=== PATIENT | female | born 1980 | race Caucasian/White ===

== ENCOUNTER 2020-04-11 14:31 | Outpatient (REF) | payer OTHER, SELFPAY ==
[2020-04-12 09:52] LABS: CT PCR NOT DETECTED (Not Detect.); NG PCR NOT DETECTED (Not Detect.)
[2020-04-12 10:13] LABS: BV Int Neg Control Negative (Negative); BV Int Pos Control Positive (Positive)
== END 2020-04-11 14:32 | disposition home or self-care (01) ==
LOC: HO.LNP 14:31
PROVIDERS: PCP Internal Medicine; Visit Provider Obstetrics & Gynecology
DX: N83.202 Unspecified ovarian cyst, left side (principal); B37.3 Candidiasis of vulva and vagina; L98.499 Non-pressure chronic ulcer of skin of other sites with unspecified severity
CPT/HCPCS: 87255; 87480; 87491; 87510; 87591; 87660; 99213

== ENCOUNTER 2020-04-16 14:05 | Outpatient (REF) | payer OTHER, SELFPAY ==
--- NOTE | 2020-04-16 | US_ITS ---
EXAMINATION: US PELVIS, COMPLETE CLINICAL INFORMATION: Ovarian cyst. COMPARISON: CT abdomen 03/04/2020; pelvic ultrasound 06/30/2017. TECHNIQUE: Transabdominal and transvaginal imaging was performed. FINDINGS: LMP: Unknown. Uterus is anteverted , measuring 13 x 4.5 x 6.6 cm. No focal uterine lesion. Endometrial thickness 0.8 cm. Bilateral ovaries could only be visualized transabdominally. The ovaries were not visualized on the transvaginal evaluation. Right ovary measures 4.7 x 3 x 2.6 cm. Volume 19.2 mL. Left ovary measures 4.6 x 2.8 x 2.9 cm. Volume 19.5 mL. No dominant cysts or lesions are evident in the ovaries by transabdominal evaluation. No free fluid in the cul-de-sac. IMPRESSION: 1. No focal lesions or dominant cysts are identified in bilateral ovaries by transabdominal evaluation. The ovaries could not be visualized by transvaginal evaluation. Follow-up ultrasound as clinically warranted. 2. Uterus appears unremarkable. 3. No free fluid in the cul-de-sac.
== END 2020-04-16 14:06 | disposition home or self-care (01) ==
LOC: HO.US 14:05
PROVIDERS: PCP Internal Medicine; Visit Provider Obstetrics & Gynecology
DX: N83.209 Unspecified ovarian cyst, unspecified side (principal)
CPT/HCPCS: 76830; 76856

== ENCOUNTER → 2020-04-30 11:18 | Outpatient (BNVA) | payer OTHER, SELFPAY | PROVIDERS: PCP Internal Medicine; Visit Provider Obstetrics & Gynecology | DX: R10.2 Pelvic and perineal pain (principal) | CPT/HCPCS: 81025; 99213 ==

== ENCOUNTER 2020-04-30 12:42 | Outpatient (REF) | payer OTHER, SELFPAY ==
[2020-04-30 15:23] LABS: CT PCR NOT DETECTED (Not Detect.); NG PCR NOT DETECTED (Not Detect.)
== END 2020-04-30 12:43 | disposition home or self-care (01) ==
LOC: HO.LNP 12:42
PROVIDERS: Visit Provider Obstetrics & Gynecology
DX: R10.2 Pelvic and perineal pain (principal)
CPT/HCPCS: 87491; 87591

== ENCOUNTER 2020-07-08 12:20 | Outpatient (REF) | payer OTHER, SELFPAY ==
[2020-07-08 14:42] LABS: Ferritin 159 ng/mL (10-122)
[2020-07-09 11:27] LABS: Alpha Fetoprotein 4.2 ng/mL
[2020-07-10 12:43] LABS: Anti Nuclear Antibody Screen NEGATIVE (NEGATIVE)
[2020-07-11 10:52] LABS: Smooth Muscle Antibody <20 U (<20)
== END 2020-07-08 12:21 | disposition home or self-care (01) ==
LOC: HO.10HDL 12:20
PROVIDERS: Visit Provider Nurse Practitioner
DX: K76.0 Fatty (change of) liver, not elsewhere classified (principal)
CPT/HCPCS: 36415; 82105; 82728; 86038; 86039; 86255

== ENCOUNTER 2020-07-22 09:33 | Outpatient (REF) | payer OTHER, SELFPAY ==
[2020-07-23 12:03] LABS: BV Int Neg Control Negative (Negative); BV Int Pos Control Positive (Positive)
[2020-07-24 09:02] LABS: C. trachomatis RNA TMA NOT DETECTED (NOT DETECTED); N. gonorrhoeae RNA TMA NOT DETECTED (NOT DETECTED)
== END 2020-07-22 09:34 | disposition home or self-care (01) ==
LOC: HO.LAB 09:33
PROVIDERS: PCP Internal Medicine; Visit Provider Obstetrics & Gynecology
DX: Z01.419 Encounter for gynecological examination (general) (routine) without abnormal findings (principal); R10.2 Pelvic and perineal pain; B37.3 Candidiasis of vulva and vagina
CPT/HCPCS: 36415; 87480; 87491; 87510; 87591; 87660

== ENCOUNTER 2020-07-26 12:35 | Outpatient (REF) | payer OTHER, SELFPAY ==
[2020-07-26 14:11] LABS: Glucose Fasting 101 mg/dL (60-99)
[2020-07-29 08:26] LABS: HIV AB/AG Nonreactive (Nonreactive); HIV Num 1 0.04 S/CO (0.00-0.99)
== END 2020-07-26 12:36 | disposition home or self-care (01) ==
LOC: HO.10HDL 12:35
PROVIDERS: Advanced Practice Midwife; Visit Provider Obstetrics & Gynecology
DX: B37.3 Candidiasis of vulva and vagina (principal); Z13.9 Encounter for screening, unspecified
CPT/HCPCS: 36415; 82947; 87389

== ENCOUNTER 2020-09-05 10:22 | Outpatient (REF) | payer OTHER, SELFPAY ==
[2020-09-05 14:03] LABS: Estimated Average Glucose 108 mg/dL; Hemoglobin A1c % 5.4 %
[2020-09-05 14:21] LABS: Alanine Aminotransferase 74 U/L (0-31); Albumin Level 4.3 g/dL (3.5-5.0); Alkaline Phosphatase 100 U/L (39-117); Anion Gap 14 (12-20); Aspartate Amino Transferase 43 U/L (5-31); Bilirubin Total 0.5 mg/dL (0.0-1.0); Blood Urea Nitrogen 11 mg/dL (9-16); Calcium 8.9 mg/dL (8.4-10.2); Carbon Dioxide 25 mmol/L (22-29); Chloride 105 mmol/L (96-108); Estimated Glomerular Filt Rate > 60; Glucose Fasting 99 mg/dL (60-99); Potassium 4.3 mmol/L (3.3-5.1); Sodium 140 mmol/L (135-145); Total Protein 7.4 g/dL (6.5-8.0)
== END 2020-09-05 10:23 | disposition home or self-care (01) ==
LOC: HO.10HDL 10:22
PROVIDERS: Visit Provider Nurse Practitioner Family
DX: R73.03 Prediabetes (principal)
CPT/HCPCS: 36415; 80053; 83036

== ENCOUNTER → 2020-09-24 13:00 | Outpatient (BNVA) | payer OTHER, SELFPAY | PROVIDERS: PCP Internal Medicine; Visit Provider Nurse Practitioner | DX: R10.33 Periumbilical pain (principal); K90.89 Other intestinal malabsorption; K21.9 Gastro-esophageal reflux disease without esophagitis; K76.0 Fatty (change of) liver, not elsewhere classified; K58.0 Irritable bowel syndrome with diarrhea; Z79.899 Other long term (current) drug therapy | CPT/HCPCS: 99212 ==

== ENCOUNTER 2020-10-18 07:51 | Outpatient (REF) | payer OTHER, SELFPAY ==
--- NOTE | ~2020-10-18 | US_ITS ---
EXAMINATION: US ABDOMEN COMPLETE CLINICAL INFORMATION: Fatty (change of) liver, not elsewhere classified. COMPARISON: CT abdomen and pelvis with contrast dated 03/04/2020. Ultrasound abdomen complete dated 02/13/2020. Ultrasound abdomen limited dated 05/25/2017. MRI abdomen without contrast dated 07/27/2013. TECHNIQUE: Real-time imaging of the abdominal viscera. Technically difficult study secondary to bowel gas and body habitus. FINDINGS: PANCREAS: Mostly obscured by bowel gas. No abnormality detected. ABDOMINAL AORTA: The proximal, mid, and distal segments are normal in caliber. INFERIOR VENA CAVA: Visualized portions are normal. LIVER: There is increased echogenicity diffusely compatible with hepatic steatosis. No focal lesion. No intrahepatic or extrahepatic biliary dilatation. GALLBLADDER: Surgically absent. COMMON BILE DUCT: Normal in caliber measuring 0.8 cm in diameter. RIGHT KIDNEY: Normal. No hydronephrosis. No renal calculi or focal parenchymal lesions. The kidney measures 13.0 cm in maximum dimension. LEFT KIDNEY: Normal. No hydronephrosis. No renal calculi or focal parenchymal lesions. The kidney measures 12.9 cm in maximum dimension. SPLEEN: No focal abnormality. The spleen measures 13.1 cm in maximum dimension. FREE FLUID: None. US/US abdomen complete IMPRESSION: Hepatic steatosis. As seen on prior imaging examinations. No focal liver abnormality.. Status post cholecystectomy.
== END 2020-10-18 07:52 | disposition home or self-care (01) ==
LOC: HO.US 07:51
PROVIDERS: Visit Provider Nurse Practitioner
DX: K76.0 Fatty (change of) liver, not elsewhere classified (principal)
CPT/HCPCS: 76700

== ENCOUNTER 2020-10-18 09:09 | Outpatient (REF) | payer OTHER, SELFPAY ==
[2020-10-18 10:54] LABS: Gamma Glutamyl Transpeptidase 82 U/L (7-33)
[2020-10-18 11:14] LABS: Ferritin 115 ng/mL (10-122)
[2020-10-21 13:43] LABS: Alpha Fetoprotein 4.4 ng/mL
[2020-10-21 14:51] LABS: Mitochondrial Antibodies NEGATIVE (NEGATIVE)
[2020-10-21 15:41] LABS: ANA Pattern 2 Nuclear, Homogeneous; ANA Titer 2 1:40 titer; Anti Nuclear Antibody Screen POSITIVE (NEGATIVE)
[2020-10-24 12:47] LABS: Smooth Muscle Antibody <20 U (<20)
== END 2020-10-18 09:10 | disposition home or self-care (01) ==
LOC: HO.10HDL 09:09
PROVIDERS: Visit Provider Nurse Practitioner
DX: K76.0 Fatty (change of) liver, not elsewhere classified (principal)
CPT/HCPCS: 36415; 82105; 82728; 82977; 86038; 86039; 86255; 86256

== ENCOUNTER → 2020-10-21 09:00 | Outpatient (BNVA) | payer OTHER, SELFPAY | PROVIDERS: PCP Internal Medicine; Visit Provider Obstetrics & Gynecology | DX: B37.3 Candidiasis of vulva and vagina (principal); R32 Unspecified urinary incontinence | CPT/HCPCS: 99212 ==

== ENCOUNTER 2020-10-22 21:41 | Emergency (ER) | payer OTHER, SELFPAY ==
[2020-10-22 22:16] LABS: MANUAL DIFF FLAG NO
[2020-10-22 22:17] LABS: Basophils Percent Auto 0.5 % (0-2); Eosinophils Absolute Auto 0.2 X10*3/uL (0.0-0.4); Eosinophils Percent Auto 2.5 % (0-4); Hematocrit 42.9 % (37-47); Hemoglobin 14.9 g/dl (12.0-16.0); Imm Gran Abs Auto 0.03 X10*3/uL (0.00-0.03); Imm Gran Pct Auto 0.4 % (0.0-0.4); Lymphocytes Absolute Auto 2.9 X10*3/uL (1.2-4.9); Lymphocytes Percent Auto 35.7 % (20-40); Mean Corpuscular HGB Conc 34.7 g/dl (31.0-35.0); Mean Corpuscular Hemoglobin 30.5 pg (27.0-33.0); Mean Corpuscular Volume 87.9 fL (80-98); Mean Platelet Volume 9.6 fL (9.4-12.3); Monocytes Absolute Auto 0.5 X10*3/uL (0.1-1.2); Monocytes Percent Auto 6.5 % (2-11); Neutrophils Absolute Auto 4.4 X10*3/uL (2.0-8.3); Neutrophils Percent Auto 54.4 % (45-73); Platelet Count 323 X10*3/uL (160-400); Red Blood Count 4.88 X10*6/uL (4.20-5.50); White Blood Count 8.1 X10*3/uL (4.8-10.8)
[2020-10-22 22:19] VITALS: BP 145/87; PULSE 86; RESP 18; TEMP 36.8; O2SAT 99; BMI 48.7
[2020-10-22 22:41] LABS: Glucose Urine UA NEG (NEG); Leukocyte Esterase Urine TRACE (NEG); Nitrite Urine NEG (NEG); PH 6.5 (5.0-8.0); Specific Gravity - Urine 1.015 (1.005-1.025); UACC Culture Trigger YES; Urine Blood NEG (NEG); Urine Ketones NEG (NEG); Urine Protein NEG (NEG-TRACE)
[2020-10-22 22:43] LABS: Appearance Urine CLEAR; Color Urine YELLOW
[2020-10-22 22:44] LABS: UPreg QC Valid YES; Urine Pregnancy NEGATIVE (NEGATIVE)
[2020-10-22 22:49] LABS: Alanine Aminotransferase 73 U/L (0-31); Albumin Level 4.2 g/dL (3.5-5.0); Alkaline Phosphatase 95 U/L (39-117); Anion Gap 12 (12-20); Aspartate Amino Transferase 41 U/L (5-31); Bilirubin Total 0.4 mg/dL (0.0-1.0); Blood Urea Nitrogen 8 mg/dL (9-16); Calcium 8.6 mg/dL (8.4-10.2); Carbon Dioxide 26 mmol/L (22-29); Chloride 105 mmol/L (96-108); Creatinine Clr Calc Pharmacy 122.8; Estimated Glomerular Filt Rate > 60; Glucose Random 98 mg/dL (60-115); Lipase 24 U/L (8-78); Sodium 139 mmol/L (135-145)
[2020-10-22 22:49] LABS: Bacteria Urine TRACE /LPF; RBC Urine 0 /HPF (0); Squamous Epithelial Cell Urine TRACE /LPF
--- NOTE | 2020-10-23 01:30 | ED.ABDPAIN ---
HPI - Abdominal Pain General Chief Complaint: Abdominal Pain Stated Complaint: abd pain Time Seen by Provider: 10/23/20 00:27 Source: patient Mode of arrival: ambulatory History of Present Illness HPI narrative: 40-year-old female with history of IBS and fatty liver who presents with suprapubic discomfort without associated fevers, chills, nausea, vomiting but states she has had a few episodes of diarrhea but fib uses to her IBS. Otherwise, she no longer has menstrual bleeding after undergoing a procedure. Related Data Home Medications Medication Instructions Recorded Confirmed dicyclomine 20 mg tablet 20 mg PO TID 04/09/20 05/07/20 ergocalciferol (vitamin D2) 1,250 1,250 mcg PO QWEEK 04/09/20 05/07/20 mcg (50,000 unit) capsule fluticasone propionate 50 1 spray INTRANASAL DAILY 04/11/20 05/07/20 mcg/actuation nasal spray,suspension furosemide 20 mg tablet 20 mg PO DAILY 04/11/20 05/07/20 methocarbamol 750 mg tablet 750 mg PO Q4H 04/11/20 05/07/20 terconazole 0.8 % vaginal cream 1 appful VAGINAL BEDTIME 04/30/20 05/07/20 Previous Rx's Medication Instructions Recorded fluconazole 150 mg tablet 150 mg PO QWEEK 90 Days #13 tab 07/22/20 omeprazole 20 mg capsule,delayed 20 mg PO QAM 30 Days #30 cap 09/24/20 release cephalexin 500 mg PO Q12H 5 Days #10 cap 10/23/20 Allergies Allergy/AdvReac Type Severity Reaction Status Date / Time No Known Allergies Allergy Verified 10/22/20 22:02 [No Known Allergies*] Review of Systems Review of Systems Pertinent positives and negatives as stated in HPI 10 point review of systems otherwise negative. Physical Exam Vital Signs: Vital Signs: Last Vital Signs Temp 98.2 F 10/22/20 22:19 Pulse 86 10/22/20 22:19 Resp 18 10/22/20 22:19 BP 145/87 H 10/22/20 22:19 Pulse Ox 99 10/22/20 22:19 Body Mass Index 48.7 VITAL SIGNS: Reviewed. GENERAL: Well developed, well nourished, in no acute distress. HEAD: Normocephalic/atraumatic OROPHARYNX: no oral lesions noted, posterior pharynx clear NECK: Supple, no adenopathy LUNGS: Normal breath sounds. No adventitious sounds or accessory muscle use. SpO2<99> CARDIOVASCULAR: Regular rate and rhythm without noted murmurs ABDOMEN: Obese, Soft, minimal tenderness on gentle palpation, non-distended with bowel sounds. NEUROLOGIC: Alert and oriented x 4. Course Course Course Narrative: 40-year-old female with history and clinical presentation suggestive of possible UTI and less likely diverticulitis. Review of all investigations is negative for any acute findings other than UTI. All results and findings were discussed with patient at bedside and she was discharged home in stable condition after receiving initial dose of antibiotics. MDM - Abdominal Pain Lab Data Result diagrams: 10/22/20 22:10 10/22/20 22:10 Labs: Lab Results 10/22/20 10/22/20 10/22/20 Range/Units 22:10 22:10 22:10 WBC 8.1 (4.8-10.8) X10*3/uL RBC 4.88 (4.20-5.50) X10*6/uL Hgb 14.9 (12.0-16.0) g/dl Hct 42.9 (37-47) % MCV 87.9 (80-98) fL MCH 30.5 (27.0-33.0) pg MCHC 34.7 (31.0-35.0) g/dl RDW 13.0 (11.0-16.0) % Plt Count 323 (160-400) X10*3/uL MPV 9.6 (9.4-12.3) fL Immature Gran % (Auto) 0.4 (0.0-0.4) % Neut % (Auto) 54.4 (45-73) % Lymph % (Auto) 35.7 (20-40) % [place] % (Auto) 6.5 (2-11) % Eos % (Auto) 2.5 (0-4) % Baso % (Auto) 0.5 (0-2) % Lymph # (Auto) 2.9 (1.2-4.9) X10*3/uL [place] # (Auto) 0.5 (0.1-1.2) X10*3/uL Eos # (Auto) 0.2 (0.0-0.4) X10*3/uL Baso # (Auto) 0.0 (0.0-0.2) X10*3/uL Abs Immat Gran (auto) 0.03 (0.00-0.03) X10*3/uL Absolute Neuts (auto) 4.4 (2.0-8.3) X10*3/uL Absolute Nucleated RBC 0.000 (0.0-0.012) X10*3/uL Nucleated RBC % (auto) 0.0 (0.0-0.2) /100WBC Hold Blue Top SEE NOTE Sodium 139 (135-145) mmol/L Potassium 4.0 (3.3-5.1) mmol/L Chloride 105 (96-108) mmol/L Carbon Dioxide 26 (22-29) mmol/L Anion Gap 12 (12-20) BUN 8 L (9-16) mg/dL Creatinine 0.74 (0.5-1.4) mg/dL Estim Creat Clear Calc 122.8 Estimated GFR > 60 Random Glucose 98 (60-115) mg/dL Calcium 8.6 (8.4-10.2) mg/dL Total Bilirubin 0.4 (0.0-1.0) mg/dL AST 41 H (5-31) U/L ALT 73 H (0-31) U/L Alkaline Phosphatase 95 (39-117) U/L Total Protein 7.0 (6.5-8.0) g/dL Albumin 4.2 (3.5-5.0) g/dL Lipase 24 (8-78) U/L Urine Color Urine Appearance Urine pH (5.0-8.0) Ur Specific [place] (1.005-1.025) Urine Protein (NEG-TRACE) MG/DL Urine Glucose (UA) (NEG) MG/DL Urine Ketones (NEG) MG/DL Urine Blood (NEG) Urine Nitrite (NEG) Ur Leukocyte Esterase (NEG) Urine RBC (0) /HPF Urine WBC (0-4) /HPF Ur Squamous Epith Cells /LPF Urine Bacteria /LPF Urine Test (NEGATIVE) 10/22/20 10/22/20 Range/Units 22:34 22:34 WBC (4.8-10.8) X10*3/uL RBC (4.20-5.50) X10*6/uL Hgb (12.0-16.0) g/dl Hct (37-47) % MCV (80-98) fL MCH (27.0-33.0) pg MCHC (31.0-35.0) g/dl RDW (11.0-16.0) % Plt Count (160-400) X10*3/uL MPV (9.4-12.3) fL Immature Gran % (Auto) (0.0-0.4) % Neut % (Auto) (45-73) % Lymph % (Auto) (20-40) % [place] % (Auto) (2-11) % Eos % (Auto) (0-4) % Baso % (Auto) (0-2) % Lymph # (Auto) (1.2-4.9) X10*3/uL [place] # (Auto) (0.1-1.2) X10*3/uL Eos # (Auto) (0.0-0.4) X10*3/uL Baso # (Auto) (0.0-0.2) X10*3/uL Abs Immat Gran (auto) (0.00-0.03) X10*3/uL Absolute Neuts (auto) (2.0-8.3) X10*3/uL Absolute Nucleated RBC (0.0-0.012) X10*3/uL Nucleated RBC % (auto) (0.0-0.2) /100WBC Hold Blue Top Sodium (135-145) mmol/L Potassium (3.3-5.1) mmol/L Chloride (96-108) mmol/L Carbon Dioxide (22-29) mmol/L Anion Gap (12-20) BUN (9-16) mg/dL Creatinine (0.5-1.4) mg/dL Estim Creat Clear Calc Estimated GFR Random Glucose (60-115) mg/dL Calcium (8.4-10.2) mg/dL Total Bilirubin (0.0-1.0) mg/dL AST (5-31) U/L ALT (0-31) U/L Alkaline Phosphatase (39-117) U/L Total Protein (6.5-8.0) g/dL Albumin (3.5-5.0) g/dL Lipase (8-78) U/L Urine Color YELLOW Urine Appearance CLEAR Urine pH 6.5 (5.0-8.0) Ur Specific [place] 1.015 (1.005-1.025) Urine Protein NEG (NEG-TRACE) MG/DL Urine Glucose (UA) NEG (NEG) MG/DL Urine Ketones NEG (NEG) MG/DL Urine Blood NEG (NEG) Urine Nitrite NEG (NEG) Ur Leukocyte Esterase TRACE H (NEG) Urine RBC 0 (0) /HPF Urine WBC 1-4 (0-4) /HPF Ur Squamous Epith Cells TRACE /LPF Urine Bacteria TRACE /LPF Urine Test NEGATIVE (NEGATIVE) Discharge Plan Discharge Clinical Impression: UTI (urinary tract infection) Patient Disposition: Home, Self-Care Instructions: Urinary Tract Infection in Women (ED) Additional Instructions: Increase fluid hydration especially with water. Follow-up with your primary care provider in the next 2-3 days for re-evaluation. Do not hesitate to return to the emergency department should you develop any acute worsening of your symptoms. Prescriptions: New cephalexin 500 mg capsule 500 mg PO Q12H 5 Days Qty: 10 RF: 0 No Action methocarbamol 750 mg tablet 750 mg PO Q4H RF: 0 fluticasone propionate 50 mcg/actuation spray,suspension 1 spray intranasal DAILY RF: 0 furosemide 20 mg tablet 20 mg PO DAILY RF: 0 fluconazole [Diflucan] 150 mg tablet 150 mg PO QWEEK 90 Days Qty: 13 RF: 0 ergocalciferol (vitamin D2) 1,250 mcg (50,000 unit) capsule 1,250 mcg PO QWEEK RF: 0 dicyclomine 20 mg tablet 20 mg PO TID RF: 0 omeprazole 20 mg capsule,delayed release(DR/EC) 20 mg PO QAM 30 Days Qty: 30 RF: 0 terconazole 0.8 % cream 1 appful vaginal BEDTIME RF: 0 Referrals: Jayne Watkins MD [Primary Care Provider] - 2 days (Re-evaluation after treated for UTI) [facility] Past Medical History Source: nursing notes reviewed Medical History ADHD Back pain History of hysteroscopy Hypoglycemia OLYA (obstructive sleep apnea) Pelvic pain Polyarthralgia Pre-diabetes Surgical History H/O section H/O laparoscopy History of bilateral tubal ligation Hx laparoscopic cholecystectomy Hx of tonsillectomy Family History Family History Mother Diabetes HTN (hypertension) Maternal Grandmother Cancer Sister Diabetes Social History Social History Alcohol intake: never Smoking Status: Never smoker Advance Directives: No Sexual orientation: Straight/Heterosexual Gender identity: female
[2020-10-23] MEDS: cephALEXin 500 MG CAPSULE PO (02:02)
== END 2020-10-23 02:11 | disposition home or self-care (01) ==
PROVIDERS: Emergency Provider Student in an Organized Health Care Education/Training Program; PCP Internal Medicine
DX: N39.0 Urinary tract infection, site not specified (principal); R50.9 Fever, unspecified; K76.0 Fatty (change of) liver, not elsewhere classified
CPT/HCPCS: 36415; 80053; 81001; 81003; 81025; 83690; 85025; 87086; 87147; 99283

== ENCOUNTER 2020-11-07 12:52 | Outpatient (REF) | payer OTHER, SELFPAY ==
--- NOTE | ~2020-11-07 | XR_ITS ---
EXAMINATION: XR LUMBOSACRAL SPINE CLINICAL INFORMATION: Pain COMPARISON: Previous x-ray December 2015 TECHNIQUE: Three views of the lumbosacral spine. FINDINGS: Bone alignment is normal. No acute fracture or dislocation is seen. There is degenerative disc disease at L4-L5 and L5-S1. There is mild lower lumbar spine facet arthritis. There is evidence of old trauma to the left iliac crest that appears unchanged. XR/XR lumbar spine 2-3V IMPRESSION: Degenerative changes of the lower lumbar spine.
[2020-11-07 14:30] LABS: MANUAL DIFF FLAG NO
[2020-11-07 14:40] LABS: Basophils Percent Auto 0.5 % (0-2); Eosinophils Absolute Auto 0.2 X10*3/uL (0.0-0.4); Eosinophils Percent Auto 2.1 % (0-4); Hematocrit 44.7 % (37-47); Hemoglobin 15.3 g/dl (12.0-16.0); Imm Gran Abs Auto 0.03 X10*3/uL (0.00-0.03); Imm Gran Pct Auto 0.4 % (0.0-0.4); Lymphocytes Percent Auto 24.2 % (20-40); Mean Corpuscular HGB Conc 34.2 g/dl (31.0-35.0); Mean Corpuscular Hemoglobin 30.2 pg (27.0-33.0); Mean Corpuscular Volume 88.2 fL (80-98); Mean Platelet Volume 9.6 fL (9.4-12.3); Monocytes Absolute Auto 0.5 X10*3/uL (0.1-1.2); Monocytes Percent Auto 5.6 % (2-11); Neutrophils Absolute Auto 5.7 X10*3/uL (2.0-8.3); Neutrophils Percent Auto 67.2 % (45-73); Platelet Count 347 X10*3/uL (160-400); Red Blood Count 5.07 X10*6/uL (4.20-5.50); Red Cell Distribution Width 13.2 % (11.0-16.0); White Blood Count 8.4 X10*3/uL (4.8-10.8)
[2020-11-07 15:08] LABS: Glucose Urine UA NEG (NEG); Leukocyte Esterase Urine TRACE (NEG); Nitrite Urine NEG (NEG); PH 5.5 (5.0-8.0); Specific Gravity - Urine >= 1.030 (1.005-1.025); Urine Blood NEG (NEG); Urine Ketones NEG (NEG); Urine Protein NEG (NEG-TRACE)
[2020-11-07 15:09] LABS: Appearance Urine HAZY; Color Urine YELLOW
[2020-11-07 15:16] LABS: Bacteria Urine 1+ /LPF; Mucus Urine TRACE /LPF; RBC Urine 0-2 /HPF (0); Squamous Epithelial Cell Urine 4+ /LPF
[2020-11-07 15:23] LABS: Alanine Aminotransferase 86 U/L (0-31); Albumin Level 4.4 g/dL (3.5-5.0); Alkaline Phosphatase 98 U/L (39-117); Anion Gap 14 (12-20); Aspartate Amino Transferase 59 U/L (5-31); Bilirubin Total 0.5 mg/dL (0.0-1.0); Blood Urea Nitrogen 8 mg/dL (9-16); C Reactive Protein 1.09 mg/dL (< or = 0.50); Carbon Dioxide 22 mmol/L (22-29); Chloride 106 mmol/L (96-108); Estimated Glomerular Filt Rate > 60; Glucose Random 131 mg/dL (60-115); Rheumatoid Factor < 15.0 IU/mL (<15.0); Sodium 138 mmol/L (135-145); Total Protein 7.3 g/dL (6.5-8.0)
[2020-11-07 15:45] LABS: Thyroid Stimulating Hormone 1.19 uIU/mL (0.32-4.0)
[2020-11-07 16:23] LABS: Erythrocyte Sedimentation Rate 8 MM/HR (0-20)
[2020-11-08 10:17] LABS: Thyroid Peroxidase Antibodies 1 IU/mL (<9)
[2020-11-08 11:07] LABS: Anti DNA DS Antibody 1 IU/mL; Antibody to SS-A Antigen <1.0 NEG AI (<1.0 NEG); Antibody to SS-B Antigen <1.0 NEG AI (<1.0 NEG); SM/Ribonucleoprotein Ab <1.0 NEG AI (<1.0 NEG); Smith Protein <1.0 NEG AI (<1.0 NEG)
[2020-11-08 11:57] LABS: Cyclic Citrullinated Peptide <16 UNITS
[2020-11-08 18:22] LABS: Thyroglobulin Antibodies <1 IU/mL (< or = 1)
[2020-11-11 11:42] LABS: Complement C3 184 mg/dL (83-193)
== END 2020-11-07 12:53 | disposition home or self-care (01) ==
LOC: HO.LAB 12:52
PROVIDERS: PCP Internal Medicine; Visit Provider Student in an Organized Health Care Education/Training Program
DX: R76.8 Other specified abnormal immunological findings in serum (principal); M25.50 Pain in unspecified joint; Z79.899 Other long term (current) drug therapy
CPT/HCPCS: 36415; 72100; 80053; 81001; 84443; 85025; 85652; 86140; 86160; 86200; 86225; 86235; 86376; 86431; 86800; 99202

== ENCOUNTER → 2020-11-19 16:17 | Outpatient (BNVA) | payer OTHER, SELFPAY | PROVIDERS: Visit Provider Obstetrics & Gynecology ==

== ENCOUNTER 2020-11-21 13:36 | Outpatient (REF) | payer OTHER, SELFPAY ==
--- NOTE | ~2020-11-21 | XR_ITS ---
EXAMINATION: XR CHEST CLINICAL INFORMATION: Localized swelling and mass and lump on the trunk. COMPARISON: None TECHNIQUE: 2 views of the chest were obtained. FINDINGS: No significant abnormality is noted involving the heart, lungs, mediastinum, bony thorax or soft tissues. XR/XR chest 2V IMPRESSION: Unremarkable chest examination.
== END 2020-11-21 13:37 | disposition home or self-care (01) ==
LOC: HO.HMGCX 13:36
PROVIDERS: PCP Internal Medicine; Visit Provider Hospitalist
DX: R22.2 Localized swelling, mass and lump, trunk (principal)
CPT/HCPCS: 71046

== ENCOUNTER 2020-11-22 14:25 | Outpatient (REF) | payer OTHER, SELFPAY ==
--- NOTE | ~2020-11-22 | US_ITS ---
EXAMINATION: US SOFT TISSUE OF THE NECK CLINICAL INFORMATION: Supraclavicular masses. COMPARISON: None TECHNIQUE: Linear transducer grayscale and color Doppler examination of the area between the neck and shoulder bilaterally. FINDINGS: No supraclavicular soft tissue solid or cystic mass is seen. There are no enlarged lymph nodes seen in the supraclavicular region. There is a normal-appearing left level 3 lymph node. This measures 0.7 x 1.6 x 0.7 cm in dimension and is normal in size. This demonstrates normal ultrasound morphology and flow. US/US soft tiss head and/or neck IMPRESSION: No supraclavicular mass or adenopathy seen.
== END 2020-11-22 14:26 | disposition home or self-care (01) ==
LOC: HO.HMGCX 14:25
PROVIDERS: Visit Provider Hospitalist
DX: R22.2 Localized swelling, mass and lump, trunk (principal)
CPT/HCPCS: 76536

== ENCOUNTER → 2020-12-03 09:22 | Outpatient (BNVA) | payer OTHER, SELFPAY | PROVIDERS: Visit Provider Student in an Organized Health Care Education/Training Program | DX: M25.50 Pain in unspecified joint (principal); R76.8 Other specified abnormal immunological findings in serum | CPT/HCPCS: 99212 ==

== ENCOUNTER → 2021-01-03 14:21 | Outpatient (BNVA) | payer OTHER, SELFPAY | PROVIDERS: PCP Internal Medicine; Visit Provider Urology | DX: N32.81 Overactive bladder (principal); R32 Unspecified urinary incontinence; R35.0 Frequency of micturition | CPT/HCPCS: 99202 ==

== ENCOUNTER 2021-01-31 07:45 | Outpatient (REF) | payer OTHER, SELFPAY ==
[2021-02-07 12:36] LABS: Vitamin D 25-OH, D2 30 ng/mL; Vitamin D 25-OH, D3 10 ng/mL; Vitamin D 25-OH, Total 40 ng/mL (30-100)
== END 2021-01-31 07:46 | disposition home or self-care (01) ==
LOC: HO.LAB 07:45
PROVIDERS: PCP Internal Medicine; Visit Provider Internal Medicine
DX: E55.9 Vitamin D deficiency, unspecified (principal); R23.8 Other skin changes
CPT/HCPCS: 36415; 82306; 82533

== ENCOUNTER 2021-02-03 14:17 | Outpatient (REF) | payer OTHER, SELFPAY ==
[2021-02-06 10:06] LABS: Total Volume, 24 Hr Urine 1850
[2021-02-07 21:36] LABS: Cortisol Free, 24 Hr Urine 35.6 mcg/24 h (4.0-50.0)
== END 2021-02-03 14:18 | disposition home or self-care (01) ==
LOC: HO.LNP 14:17
PROVIDERS: Visit Provider Internal Medicine
DX: R23.8 Other skin changes (principal)
CPT/HCPCS: 82530

== ENCOUNTER 2021-02-08 21:25 | Emergency (ER) | payer OTHER, SELFPAY ==
--- NOTE | ~2021-02-08 | XR_ITS ---
EXAMINATION: XR WRIST, LEFT CLINICAL INFORMATION: Wrist injury COMPARISON: None TECHNIQUE: PA, lateral, oblique, and scaphoid views of the left wrist. FINDINGS: The bones and soft tissues are normal. No fracture. Alignment is anatomic with normal joint spaces. No erosions or abnormal soft tissue calcifications. XR/XR wrist LT min 3V IMPRESSION: Normal left wrist.
[2021-02-08 21:27] VITALS: BP 149/90; PULSE 93; RESP 18; TEMP 36.8; O2SAT 96; BMI 49.6
--- NOTE | 2021-02-08 22:02 | ED.EXTPRO ---
HPI - Extremity Problem General Chief complaint: Extremity Injury, Upper Stated complaint: wrist injury Time Seen by Provider: 02/08/21 21:50 Source: patient Mode of arrival: ambulatory Limitations: no limitations History of Present Illness HPI Narrative: 40-year-old female presents with left wrist pain. Stated that yesterday while she was at the beach she tried to get up out of the beach chair, applied pressure to the left wrist and felt a crack and multiple pops. She does have a history of carpal tunnel, and has been using a compression wrap to alleviate her pain. She did not report any other symptoms, has full range of motion to the extremity, and does not report any decrease in sensation. MD Complaint: extremity pain Onset (ago): day(s) (1) Pain Consistency: constant Location: left Severity scale (1-10): 7 Quality: aching Radiation: none Relieving factors: nothing Exacerbating factors: range of motion and palpation Associated symptoms: denies other symptoms Related Data Home Medications Medication Instructions Recorded Confirmed fluticasone propionate 50 1 spray INTRANASAL DAILY 04/11/20 01/29/21 mcg/actuation nasal spray,suspension methocarbamol 750 mg tablet 750 mg PO Q4H 04/11/20 01/29/21 sennosides 8.6 mg tablet 17.2 mg PO BEDTIME 01/03/21 01/29/21 Previous Rx's Medication Instructions Recorded omeprazole 20 mg capsule,delayed 20 mg PO QAM 30 Days #30 cap 09/24/20 release sennosides 8.6 mg capsule (senna) 17.2 mg PO BEDTIME 30 Days #60 cap 10/30/20 ergocalciferol (vitamin D2) 1,250 1,250 mcg PO QWEEK 30 Days #5 cap 10/31/20 mcg (50,000 unit) capsule furosemide 20 mg tablet 20 mg PO DAILY 90 Days #90 tab 12/08/20 ibuprofen 800 mg tablet 800 mg PO Q8H PRN 30 Days #90 tab 12/08/20 dexamethasone 1 mg tablet 1 mg PO DAILY 1 Days #1 tab 01/29/21 Allergies Allergy/AdvReac Type Severity Reaction Status Date / Time No Known Allergies Allergy Verified 02/08/21 21:26 [No Known Allergies*] Review of Systems Review of Systems: Constitutional: No Fever, No Chills ENT/Mouth: No Ear Pain, No Hoarseness, No sore throat Eyes: No Eye Pain, No Swelling, No Redness, No Foreign Body Cardiovascular: No Chest Pain, No SOB Respiratory: No Cough, No Dyspnea Gastrointestinal: No Nausea, No Vomiting, No Diarrhea, No abdominal Pain Genitourinary: No Dysuria, No Hematuria Musculoskeletal: positive left wrist pain, No Myalgias, No Joint Swelling Skin: No Skin lacerations, No rash Neuro: No Weakness, No Numbness, No Paresthesias, No Loss of Consciousness, No Dizziness, No Headache Psych: No Anxiety/Panic, No Depression Heme/Lymph: no easy bruising, no Lymphadenopathy Endocrine: No Polyuria, No Polydipsia Yes all other systems are reviewed and are negative REPLACED BY [facility] Past Medical History Attestation statement: The following information was validated with the patient. Source: old records reviewed Medical History (Updated 02/08/21 @ 23:24 by Maia Berry NP) ADHD RADHA positive Back pain Benign tumor Bulging of cervical intervertebral disc Carpal tunnel syndrome Depression with anxiety Easy bruising Hypoglycemia Lumbar pain Mild asthma OLYA (obstructive sleep apnea) Pelvic pain Polyarthralgia Pre-diabetes Surgical History H/O section H/O laparoscopy History of bilateral tubal ligation History of hysteroscopy History of mandibular surgery Hx laparoscopic cholecystectomy Hx of tonsillectomy Family History Family History Mother Diabetes HTN (hypertension) Maternal Grandmother Cancer Sister Diabetes Social History Social History Housing: Apartment Alcohol intake: never Patient Tobacco Use Status: Never used Tobacco e-Cigarette/Vaping Use: Never Used Second Hand Smoke Exposure: No Advance Directives: No Advance Directives Information Provided: Yes Patient : No service: No Current occupational status: unemployed Sexual orientation: Straight/Heterosexual Gender identity: female Physical Exam Vital Signs: Vital Signs: Last Vital Signs Temp 98.3 F 02/08/21 21:27 Pulse 93 02/08/21 21:27 Resp 18 02/08/21 21:27 BP 149/90 H 02/08/21 21:27 Pulse Ox 96 02/08/21 21:27 Body Mass Index 49.6 Appearance: Alert. Oriented X3. No acute distress. Eyes: Pupils equal, round and reactive to light. ENT: Pharynx normal. Neck: Normal inspection. Neck supple. CVS: Normal heart rate and rhythm. Pulses normal. Respiratory: No respiratory distress. Breath sounds normal. Abdomen: Soft and nontender. Skin: Skin warm and dry. Normal skin color. Normal skin turgor. Extremities: Full range of motion to bilateral upper extremities, equal pulses and brisk capillary refill, no snuffbox tenderness, strength 5/5 to all digits, no indication of tendon deficit, negative Phalen and Tinel sign. Neuro: No motor deficit. No sensory deficit. Course Course Course Narrative: 40-year-old female presents with left wrist pain after feeling a pop and snaps when applying pressure to the wrist while trying to get up out of a chair. Patient does have full range of motion, no indication of swelling bruising or abrasions. Has brisk capillary refill, is neurovascularly intact, no indication of tendon injury. Will order x-rays. X-rays are negative for acute findings requiring emergent intervention. Will give a wrist brace for suspected sprain-strain. Will have patient follow up with Orthopedics as she does have a known history of carpal tunnel. Patient verbalized understanding of and agrees to plan of care discharge home. MDM - Extremity (Nontraumatic) MDM Narrative Medical decision making narrative: Dislocation, fracture, strain, tendinitis Medical Records Attestation: I reviewed the patient's medical records. Imaging Data Wrist x-ray: Attestation: I personally reviewed and interpreted this imaging study as follows: Radiologist's impression: EXAMINATION: XR WRIST, LEFT CLINICAL INFORMATION: Wrist injury COMPARISON: None? TECHNIQUE: PA, lateral, oblique, and scaphoid views of the left wrist. FINDINGS: The bones and soft tissues are normal. No fracture. Alignment is anatomic with normal joint spaces. No erosions or abnormal soft tissue calcifications.? XR/XR wrist LT min 3V IMPRESSION: Normal left wrist. Discharge Plan Discharge Clinical Impression: Sprain and strain of wrist Patient Disposition: Home, Self-Care Instructions: Wrist Sprain (ED) Additional Instructions: You were evaluated for injury sustained to the left wrist. X-rays are negative for fracture or dislocation. This could possibly be a wrist strain or sprain. Please use wrist splint as needed for comfort. Consider following up with Orthopedics for chronic carpal tunnel. Thank you for choosing this emergency department for evaluation. Please follow-up with primary care physician as needed. Return to the emergency department for any new, concerning, or worsening symptoms. Prescriptions: No Action senna 8.6 mg capsule 17.2 mg PO BEDTIME 30 Days Qty: 60 RF: 6 ibuprofen 800 mg tablet 800 mg PO Q8H PRN (Reason: pain) 30 Days Qty: 90 RF: 1 furosemide 20 mg tablet 20 mg PO DAILY 90 Days Qty: 90 RF: 1 dexamethasone 1 mg tablet 1 mg PO DAILY 1 Days Qty: 1 RF: 0 ergocalciferol (vitamin D2) 1,250 mcg (50,000 unit) capsule 1,250 mcg PO QWEEK 30 Days Qty: 5 RF: 3 methocarbamol 750 mg tablet 750 mg PO Q4H RF: 0 fluticasone propionate 50 mcg/actuation spray,suspension 1 spray intranasal DAILY RF: 0 omeprazole 20 mg capsule,delayed release(DR/EC) 20 mg PO QAM 30 Days Qty: 30 RF: 0 sennosides 8.6 mg tablet 17.2 mg PO BEDTIME RF: 0 Referrals: Amanda Low PA-C [Physician Psychological Science Professor] - 2 days (Carpal tunnel) Interventions: ED Discharge Assessment Last Done: 02/09/21 00:03 Discharge Date/Time: 02/09/21 00:07
== END 2021-02-09 00:07 | disposition home or self-care (01) ==
PROVIDERS: Emergency Provider Emergency Medicine; PCP Internal Medicine
DX: S63.502A Unspecified sprain of left wrist, initial encounter (principal); S66.912A Strain of unspecified muscle, fascia and tendon at wrist and hand level, left hand, initial encounter; X50.1XXA Overexertion from prolonged static or awkward postures, initial encounter; Y93.89 Activity, other specified; Y92.832 Beach as the place of occurrence of the external cause; Y99.9 Unspecified external cause status
CPT/HCPCS: 73110; 99283; 99284

== ENCOUNTER 2021-03-05 12:57 | Outpatient (REF) | payer OTHER, SELFPAY ==
--- NOTE | ~2021-03-05 | XR_ITS ---
EXAMINATION: XR HIP, LEFT XR KNEES, BILATERAL CLINICAL INFORMATION: Bilateral leg pain and left hip pain. COMPARISON: Left hip and bilateral knees 09/22/2017 TECHNIQUE: 3 views left hip, 2 views each knee FINDINGS: No significant bone, joint or soft tissue abnormality is seen involving the left hip or either knee. No significant degenerative changes are present and no fractures are seen. Irregularity of the left iliac crest is again noted and stable possibly secondary to prior trauma or bone harvest. XR/XR knee LT 2V IMPRESSION: Normal left hip and bilateral knees, unchanged.
--- NOTE | ~2021-03-05 | XR_ITS ---
EXAMINATION: XR HIP, LEFT XR KNEES, BILATERAL CLINICAL INFORMATION: Bilateral leg pain and left hip pain. COMPARISON: Left hip and bilateral knees 09/22/2017 TECHNIQUE: 3 views left hip, 2 views each knee FINDINGS: No significant bone, joint or soft tissue abnormality is seen involving the left hip or either knee. No significant degenerative changes are present and no fractures are seen. Irregularity of the left iliac crest is again noted and stable possibly secondary to prior trauma or bone harvest. XR/XR knee RT 2V IMPRESSION: Normal left hip and bilateral knees, unchanged.
--- NOTE | ~2021-03-05 | XR_ITS ---
EXAMINATION: XR HIP, LEFT XR KNEES, BILATERAL CLINICAL INFORMATION: Bilateral leg pain and left hip pain. COMPARISON: Left hip and bilateral knees 09/22/2017 TECHNIQUE: 3 views left hip, 2 views each knee FINDINGS: No significant bone, joint or soft tissue abnormality is seen involving the left hip or either knee. No significant degenerative changes are present and no fractures are seen. Irregularity of the left iliac crest is again noted and stable possibly secondary to prior trauma or bone harvest. XR/XR hip LT min 2V IMPRESSION: Normal left hip and bilateral knees, unchanged.
== END 2021-03-05 12:58 | disposition home or self-care (01) ==
LOC: HO.XRAY 12:57
PROVIDERS: PCP Internal Medicine; Visit Provider Internal Medicine
DX: M25.552 Pain in left hip (principal); M25.562 Pain in left knee; M25.561 Pain in right knee
CPT/HCPCS: 73502; 73560

== ENCOUNTER → 2021-03-25 14:32 | Outpatient (BNVA) | payer OTHER, SELFPAY | PROVIDERS: PCP Internal Medicine; Visit Provider Nurse Practitioner ==

== ENCOUNTER 2021-05-23 09:07 | Outpatient (REF) | payer OTHER, SELFPAY ==
[2021-05-23 10:09] LABS: MANUAL DIFF FLAG NO
[2021-05-23 10:21] LABS: Basophils Absolute Auto 0.1 X10*3/uL (0.0-0.2); Basophils Percent Auto 0.7 % (0-2); Eosinophils Absolute Auto 0.4 X10*3/uL (0.0-0.4); Eosinophils Percent Auto 4.1 % (0-4); Hematocrit 42.9 % (37.0-47.0); Hemoglobin 14.9 g/dl (12.0-16.0); Imm Gran Abs Auto 0.03 X10*3/uL (0.00-0.03); Imm Gran Pct Auto 0.3 % (0.0-0.4); Lymphocytes Absolute Auto 2.8 X10*3/uL (1.2-4.9); Lymphocytes Percent Auto 32.3 % (20-40); Mean Corpuscular HGB Conc 34.7 g/dl (31.0-35.0); Mean Corpuscular Hemoglobin 30.4 pg (27.0-33.0); Mean Corpuscular Volume 87.6 fL (80.0-98.0); Mean Platelet Volume 10.3 fL (9.4-12.3); Monocytes Absolute Auto 0.6 X10*3/uL (0.1-1.2); Monocytes Percent Auto 6.9 % (2-11); Neutrophils Absolute Auto 4.9 x10*3/uL (2.0-8.3); Neutrophils Percent Auto 55.7 % (45-73); Platelet Count 335 X10*3/uL (160-400); Red Cell Distribution Width 13.3 % (11.0-16.0); White Blood Count 8.8 X10*3/uL (4.8-10.8)
[2021-05-23 10:45] LABS: Alanine Aminotransferase 71 U/L (0-31); Albumin Level 4.2 g/dL (3.5-5.0); Alkaline Phosphatase 109 U/L (39-117); Anion Gap 11 (12-20); Aspartate Amino Transferase 42 U/L (5-31); Bilirubin Total 0.4 mg/dL (0.0-1.0); Blood Urea Nitrogen 8 mg/dL (9-16); Calcium 8.7 mg/dL (8.4-10.2); Carbon Dioxide 26 mmol/L (22-29); Chloride 103 mmol/L (96-108); Cholesterol 181 mg/dL; Estimated Glomerular Filt Rate > 60; Glucose Fasting 105 mg/dL (60-99); HDL Cholesterol 34 mg/dL; LDL Cholesterol Calculated 104 mg/dl; Potassium 3.8 mmol/L (3.3-5.1); Sodium 136 mmol/L (135-145); Triglycerides 219 mg/dL
[2021-05-23 11:01] LABS: Gamma Glutamyl Transpeptidase 101 U/L (7-33)
[2021-05-23 11:07] LABS: Ferritin 151 ng/mL (10-122)
[2021-05-23 11:19] LABS: Folate 9.9 ng/mL (> or = 4.0); Vitamin B12 566 pg/mL (200-900)
[2021-05-25 15:06] LABS: Anti Nuclear Antibody Screen NEGATIVE (NEGATIVE)
[2021-05-26 21:47] LABS: Smooth Muscle Antibody <20 U (<20)
[2021-05-27 13:12] LABS: Mitochondrial Antibodies NEGATIVE (NEGATIVE)
[2021-05-30 15:20] LABS: Vitamin D 25-OH, D2 17 ng/mL; Vitamin D 25-OH, D3 14 ng/mL; Vitamin D 25-OH, Total 31 ng/mL (30-100)
== END 2021-05-23 09:08 | disposition home or self-care (01) ==
LOC: HO.10HDL 09:07
PROVIDERS: Internal Medicine; Visit Provider Nurse Practitioner
DX: K76.0 Fatty (change of) liver, not elsewhere classified (principal); R74.01 Elevation of levels of liver transaminase levels; E66.01 Morbid (severe) obesity due to excess calories; D64.9 Anemia, unspecified; E55.9 Vitamin D deficiency, unspecified; E78.5 Hyperlipidemia, unspecified
CPT/HCPCS: 36415; 80053; 80061; 82105; 82306; 82607; 82728; 82746; 82977; 84443; 85025; 86038; 86039; 86255; 86256

== ENCOUNTER 2021-07-14 11:52 | Outpatient (REF) | payer OTHER, SELFPAY ==
[2021-07-14 14:43] LABS: Appearance Urine CLEAR; Color Urine YELLOW; Glucose Urine UA NEG (NEG); Leukocyte Esterase Urine NEG (NEG); Nitrite Urine NEG (NEG); Urine Blood NEG (NEG); Urine Ketones NEG (NEG); Urine Protein NEG (NEG-TRACE)
== END 2021-07-14 11:53 | disposition home or self-care (01) ==
LOC: HO.LAB 11:52
PROVIDERS: PCP Internal Medicine; Referring Provider Internal Medicine; Visit Provider Nurse Practitioner
DX: R35.0 Frequency of micturition (principal); K90.89 Other intestinal malabsorption; K21.9 Gastro-esophageal reflux disease without esophagitis; K76.0 Fatty (change of) liver, not elsewhere classified; E66.01 Morbid (severe) obesity due to excess calories
CPT/HCPCS: 81003; 99212

== ENCOUNTER 2021-07-24 08:57 | Outpatient (REF) | payer OTHER, SELFPAY ==
[2021-07-29 20:01] LABS: HPV mRNA E6/E7 rflx Not Detected (Not Detected)
== END 2021-07-24 08:58 | disposition home or self-care (01) ==
LOC: HO.LAB 08:57
PROVIDERS: PCP Internal Medicine; Visit Provider Obstetrics & Gynecology
DX: Z01.419 Encounter for gynecological examination (general) (routine) without abnormal findings (principal); Z11.51 Encounter for screening for human papillomavirus (HPV)
CPT/HCPCS: 87624; 88142

== ENCOUNTER → 2021-08-07 10:00 | Outpatient (BNVA) | payer OTHER, SELFPAY | PROVIDERS: PCP Internal Medicine; Referring Provider Internal Medicine; Visit Provider Surgery | DX: N92.0 Excessive and frequent menstruation with regular cycle (principal); K42.9 Umbilical hernia without obstruction or gangrene; E66.01 Morbid (severe) obesity due to excess calories; Z68.42 Body mass index [BMI] 45.0-49.9, adult | CPT/HCPCS: 99202; Q3014 ==

== ENCOUNTER 2021-08-13 10:52 | Outpatient (REF) | payer OTHER, SELFPAY ==
--- NOTE | ~2021-08-13 | US_ITS ---
EXAMINATION: US ABDOMEN LIMITED CLINICAL INFORMATION: Fatty change of liver, not elsewhere classified. COMPARISON: Ultrasound abdomen complete 10/18/2020. CT abdomen and pelvis 03/04/2020. TECHNIQUE: Real-time imaging of the right upper quadrant abdominal viscera. Technically difficult study secondary to body habitus. FINDINGS: PANCREAS: Normal. LIVER: The liver is enlarged measuring 21.7 cm. The liver contour is normal. There is diffuse hepatic echogenicity. No focal hepatic lesion. There is no intrahepatic biliary duct dilatation seen. GALLBLADDER: Surgically absent. COMMON BILE DUCT: Normal in caliber measuring 0.58 cm in diameter. RIGHT KIDNEY: Normal. No hydronephrosis. No renal calculi or focal parenchymal lesions. The kidney measures 13.0 cm in maximum dimension. FREE FLUID: None. US/US abdomen limited IMPRESSION: Hepatomegaly with diffuse hepatic steatosis. No focal lesion is seen. The gallbladder has been removed.
== END 2021-08-13 10:53 | disposition home or self-care (01) ==
LOC: HO.HMGCX 10:52
PROVIDERS: Visit Provider Nurse Practitioner
DX: K76.0 Fatty (change of) liver, not elsewhere classified (principal); K74.01 Hepatic fibrosis, early fibrosis
CPT/HCPCS: 76705

== ENCOUNTER 2021-08-21 13:15 | Outpatient (REF) | payer OTHER, SELFPAY ==
--- NOTE | ~2021-08-21 | XR_ITS ---
EXAMINATION: XR CHEST CLINICAL INFORMATION: Obesity COMPARISON: Previous chest x-ray September 2020 TECHNIQUE: 2 views of the chest were obtained. FINDINGS: No significant abnormality is noted involving the heart, lungs, mediastinum, bony thorax or soft tissues. XR/XR chest 2V IMPRESSION: Unremarkable examination.
--- NOTE | 2021-08-21 15:31 | ECG_ITS ---
Test Reason : morbid obesity Blood Pressure : / mmHG Vent. Rate : 091 BPM Atrial Rate : 091 BPM P-R Int : 162 ms QRS Dur : 100 ms QT Int : 364 ms P-R-T Axes : 041 040 021 degrees QTc Int : 447 ms Normal sinus rhythm Nonspecific T wave abnormality Abnormal ECG When compared with ECG of 23-NOV-2018 16:45, No significant change was found Referred By: Jayne Conteh Electronically Signed By:Omari Hook
== END 2021-08-21 13:16 | disposition home or self-care (01) ==
LOC: HO.XRAY 13:15
PROVIDERS: PCP Internal Medicine; Referring Provider Internal Medicine; Visit Provider Physician Assistant Surgical
DX: E66.01 Morbid (severe) obesity due to excess calories (principal); Z68.42 Body mass index [BMI] 45.0-49.9, adult; Z71.3 Dietary counseling and surveillance
CPT/HCPCS: 71046; 93005; 99202

== ENCOUNTER 2021-08-22 07:46 | Outpatient (REF) | payer OTHER, SELFPAY ==
[2021-08-22 08:15] LABS: MANUAL DIFF FLAG NO
[2021-08-22 08:42] LABS: Basophils Percent Auto 0.5 % (0-2); Eosinophils Absolute Auto 0.2 X10*3/uL (0.0-0.4); Eosinophils Percent Auto 2.6 % (0-4); Hematocrit 42.2 % (37.0-47.0); Hemoglobin 14.8 g/dl (12.0-16.0); Imm Gran Abs Auto 0.02 X10*3/uL (0.00-0.03); Imm Gran Pct Auto 0.2 % (0.0-0.4); Lymphocytes Absolute Auto 2.7 X10*3/uL (1.2-4.9); Lymphocytes Percent Auto 31.9 % (20-40); Mean Corpuscular HGB Conc 35.1 g/dl (31.0-35.0); Mean Corpuscular Hemoglobin 30.7 pg (27.0-33.0); Mean Corpuscular Volume 87.6 fL (80.0-98.0); Mean Platelet Volume 9.8 fL (9.4-12.3); Monocytes Absolute Auto 0.5 X10*3/uL (0.1-1.2); Monocytes Percent Auto 5.7 % (2-11); Neutrophils Absolute Auto 4.9 x10*3/uL (2.0-8.3); Neutrophils Percent Auto 59.1 % (45-73); Platelet Count 329 X10*3/uL (160-400); Red Blood Count 4.82 X10*6/uL (4.20-5.50); Red Cell Distribution Width 13.1 % (11.0-16.0); White Blood Count 8.4 X10*3/uL (4.8-10.8)
[2021-08-22 09:05] LABS: Estimated Average Glucose 114 mg/dL; Hemoglobin A1c % 5.6 %
[2021-08-22 09:11] LABS: Anion Gap 11 (12-20); Blood Urea Nitrogen 10 mg/dL (9-16); C Reactive Protein 1.42 mg/dL (< or = 0.50); Calcium 9.3 mg/dL (8.4-10.2); Carbon Dioxide 25 mmol/L (22-29); Chloride 105 mmol/L (96-108); Cholesterol 167 mg/dL; Estimated Glomerular Filt Rate > 60; Glucose Random 110 mg/dL (60-115); HDL Cholesterol 32 mg/dL; Iron 85 mcg/dL (30-160); LDL Cholesterol Calculated 110 mg/dl; Sodium 137 mmol/L (135-145); Triglycerides 128 mg/dL
[2021-08-22 09:26] LABS: Percent Iron Saturation 28 % (15-50); Total Iron Binding Capacity 306 mcg/dL (228-428); Unsaturated Iron Binding 221 ug/dL
[2021-08-22 09:32] LABS: Ferritin 139 ng/mL (10-122); TSH reflex Free T4 3.41 uIU/mL (0.32-4.0)
[2021-08-22 11:31] LABS: Folate 13.5 ng/mL (> or = 4.0); Vitamin B12 520 pg/mL (200-900)
[2021-08-25 16:22] LABS: Calcium (PTHI) 9.2 mg/dL (8.6-10.2); PTHI 125 pg/mL (14-64)
[2021-08-27 03:52] LABS: Zinc 74 mcg/dL (60-130)
[2021-08-27 16:51] LABS: Vitamin B1 8 nmol/L (8-30)
[2021-08-28 12:06] LABS: Vitamin A 47 mcg/dL (38-98)
== END 2021-08-22 07:47 | disposition home or self-care (01) ==
LOC: HO.LAB 07:46
PROVIDERS: PCP Internal Medicine; Visit Provider Physician Assistant Surgical
DX: E66.01 Morbid (severe) obesity due to excess calories (principal); Z68.42 Body mass index [BMI] 45.0-49.9, adult
CPT/HCPCS: 36415; 80048; 80061; 82306; 82607; 82728; 82746; 83036; 83540; 83970; 84425; 84443; 84590; 84630; 85025; 86140

== ENCOUNTER 2021-09-09 08:14 | Outpatient (REF) | payer OTHER, SELFPAY ==
[2021-09-10 17:19] LABS: H Pylori Breath Test Negative (Negative)
== END 2021-09-09 08:15 | disposition home or self-care (01) ==
LOC: HO.LNP 08:14
PROVIDERS: PCP Internal Medicine; Referring Provider Internal Medicine; Visit Provider Physician Assistant Surgical
DX: E66.01 Morbid (severe) obesity due to excess calories (principal); I45.81 Long QT syndrome; E21.3 Hyperparathyroidism, unspecified; R73.03 Prediabetes; G47.33 Obstructive sleep apnea (adult) (pediatric); F41.8 Other specified anxiety disorders; Z68.41 Body mass index [BMI] 40.0-44.9, adult; Z87.891 Personal history of nicotine dependence; Z79.899 Other long term (current) drug therapy
CPT/HCPCS: 83013; 99211; 99212

== ENCOUNTER → 2021-09-24 08:15 | Outpatient (BNVA) | payer OTHER, SELFPAY | PROVIDERS: PCP Internal Medicine; Referring Provider Internal Medicine; Visit Provider Dietitian, Registered | DX: E66.01 Morbid (severe) obesity due to excess calories (principal); Z68.41 Body mass index [BMI] 40.0-44.9, adult | CPT/HCPCS: 97802 ==

== ENCOUNTER 2021-09-30 08:01 | Outpatient (REF) | payer OTHER, SELFPAY ==
--- NOTE | ~2021-09-30 | FL_ITS ---
EXAMINATION: XR FLUOROSCOPY UPPER GI WITH AIR CLINICAL INFORMATION: Obesity COMPARISON: None TECHNIQUE: Upper GI was performed using thin and thick barium and effervescent granules. FINDINGS: Esophageal motility is normal. There is gastroesophageal reflux. No esophageal hernia is seen. The stomach and duodenum are normal-appearing. No fold thickening, mass, ulcer or stricture is seen. FLUOROSCOPY TIME: 0.5 DOSE AREA PRODUCT: 4.6 evans per centimeter squared. 19 saved fluoroscopic images. FL/FL upper GI w air IMPRESSION: Gastroesophageal reflux otherwise unremarkable exam.
--- NOTE | ~2021-09-30 | US_ITS ---
EXAMINATION: US COMPLETE ABDOMEN WITH LIVER ELASTOGRAPHY CLINICAL INFORMATION: Obesity COMPARISON: None. TECHNIQUE: Real-time imaging of the abdominal viscera. Noninvasive ultrasound liver fibrosis assessment is performed using Wing ElastPQ point quantification shear wave elastography (2D-SWE) with a C5-2 MHz transducer. Multiple elastography samples are obtained. FINDINGS: PANCREAS: The visualized pancreatic head and body are normal in appearance. The remainder of the pancreas is obscured from visualization by the overlying bowel gas. ABDOMINAL AORTA: The proximal, middle, and distal aortic segments are normal in caliber. INFERIOR VENA CAVA: Visualized portions are normal. LIVER: Liver echotexture is increased. The liver is enlarged. The liver is normal in contour. No focal lesion or intrahepatic biliary duct dilatation. The right lobe measures 22 cm in length. The left lobe measures 6 cm in length. Portal flow is normal/hepatopedal Shear wave liver elastography median stiffness is 2.3 m/s (reference: normal median stiffness is 1.3 m/s or less). IQR/median stiffness to assess sampling precision is 0.06 (reference: good quality data set is IQR/median stiffness of 0.15 or less). GALLBLADDER: Surgically removed COMMON BILE DUCT: Normal in caliber measuring 0.6 cm in diameter. RIGHT KIDNEY: Normal. No hydronephrosis. No renal calculi or focal parenchymal lesions. The kidney measures 12 cm in maximum dimension. LEFT KIDNEY: Normal. No hydronephrosis. No renal calculi or focal parenchymal lesions. The kidney measures 12.5 cm in maximum dimension. SPLEEN: Upper normal in size. The spleen measures 13 cm in maximum dimension. There is an echogenic area in the spleen with acoustic shadowing probably representing a calcification. FREE FLUID: None. US/US abdomen comp w elastography IMPRESSION: 1. Impression enlarged echogenic liver. Upper normal-size spleen. 2. Liver elastography: Adequate liver sampling. Increased liver stiffness suggestive of compensated advanced chronic liver disease. REFERENCE: Society of Radiologists in Ultrasound Liver Stiffness Thresholds (2020): LIVER STIFFNESS THRESHOLDS: *Liver Stiffness equal or less than 1.3 m/s: High probability of being normal. *Liver Stiffness less than 1.7 m/s: In the absence of other known clinical signs, rules out compensated advanced chronic liver disease. *Liver Stiffness 1.7-2.1 m/s: Suggestive of compensated advanced chronic liver disease but need further test for confirmation. *Liver Stiffness over 2.1 m/s: Rules in compensated advanced chronic liver disease. *Liver Stiffness over 2.4 m/s: Suggestive of clinically significant portal hypertension. QUALITY OF DATA SET: *IQR/Median value equal or less than 0.15 implies a quality data set. *IQR/Median value over 0.15 implies a poor quality data set. SIGNIFICANT CHANGE FROM PRIOR EXAM: Significant change if liver stiffness measurement is 10% or greater from prior exam. OTHER CONSIDERATIONS: The stage of liver fibrosis may be overestimated in the setting of acute hepatitis, liver inflammation, elevated liver function tests, hepatic vascular congestion, obstructive cholestasis, non-fasting state, and infiltrative diseases such as amyloidosis and lymphoma. In some patients with NAFLD, the liver stiffness thresholds for compensated advanced chronic liver disease may be lower. In causes other than viral hepatitis and NAFLD, liver stiffness thresholds are not well established.
== END 2021-09-30 08:02 | disposition home or self-care (01) ==
LOC: HO.US 08:01
PROVIDERS: Visit Provider Physician Assistant Surgical
DX: E66.01 Morbid (severe) obesity due to excess calories (principal); Z68.42 Body mass index [BMI] 45.0-49.9, adult
CPT/HCPCS: 74246; 76705; 76981

== ENCOUNTER → 2021-10-01 09:07 | Outpatient (BNVA) | payer OTHER, SELFPAY | PROVIDERS: PCP Internal Medicine; Referring Provider Physician Assistant Surgical; Visit Provider Dietitian, Registered | DX: E66.01 Morbid (severe) obesity due to excess calories (principal); Z68.41 Body mass index [BMI] 40.0-44.9, adult | CPT/HCPCS: 97803 ==

== ENCOUNTER 2021-10-09 08:53 | Outpatient (REF) | payer OTHER, SELFPAY ==
[2021-10-09 11:37] LABS: Alanine Aminotransferase 91 U/L (0-31); Albumin Level 4.7 g/dL (3.5-5.0); Alkaline Phosphatase 93 U/L (39-117); Aspartate Amino Transferase 54 U/L (5-31); Bilirubin Direct 0.3 mg/dL (0.0-0.5); Bilirubin Total 0.8 mg/dL (0.0-1.0); Total Protein 8.1 g/dL (6.5-8.0)
[2021-10-13 13:02] LABS: Alpha Fetoprotein 4.6 ng/mL
== END 2021-10-09 08:54 | disposition home or self-care (01) ==
LOC: HO.LAB 08:53
PROVIDERS: PCP Internal Medicine; Referring Provider Internal Medicine; Visit Provider Nurse Practitioner
DX: K58.0 Irritable bowel syndrome with diarrhea (principal); K76.0 Fatty (change of) liver, not elsewhere classified; K21.9 Gastro-esophageal reflux disease without esophagitis; K90.89 Other intestinal malabsorption
CPT/HCPCS: 36415; 80076; 82105; 99212

== ENCOUNTER → 2021-10-14 08:25 | Outpatient (BNVA) | payer OTHER, SELFPAY | PROVIDERS: PCP Internal Medicine; Referring Provider Internal Medicine; Visit Provider Physician Assistant Surgical | DX: E66.9 Obesity, unspecified (principal); Z68.39 Body mass index [BMI] 39.0-39.9, adult | CPT/HCPCS: 99212 ==

== ENCOUNTER → 2021-10-22 08:07 | Outpatient (BNVA) | payer OTHER, SELFPAY | PROVIDERS: PCP Internal Medicine; Visit Provider Surgery | DX: Z13.89 Encounter for screening for other disorder (principal) ==

== ENCOUNTER 2021-10-23 13:29 | Outpatient (REF) | payer OTHER, SELFPAY ==
[2021-10-23 17:03] LABS: CT PCR NOT DETECTED (Not Detect.); NG PCR NOT DETECTED (Not Detect.)
== END 2021-10-23 13:30 | disposition home or self-care (01) ==
LOC: HO.LAB 13:29
PROVIDERS: Visit Provider Obstetrics & Gynecology
DX: N93.9 Abnormal uterine and vaginal bleeding, unspecified (principal)
CPT/HCPCS: 81025; 87491; 87591; 99212

== ENCOUNTER → 2021-10-28 09:21 | Outpatient (REF) | payer OTHER, SELFPAY ==
--- NOTE | 2021-10-28 09:26 | CA_ITS ---
Acquisition Time: 2021-10-28 10:13:25 Total Exercise Time: 00:05:12 Test Indications: ABN EKG Medications: Protocol: CHASE Max HR: 148 BPM 81% of Pred: 181 BPM Max BP: 120/078 mmHG Max Work Load: 7.0 METS Exercise stress test using Chase protocol, total of 5 min 12 sec. Pt began to have chest pressure at 4 minutes 35 seconds and the pressure increased, with some SOB. MAPHR up to 80 % which was suboptimal METS. Test ended, will speak to ordering provider to do pharmacological nuclear stress test. Pt's chest pain went away in recovery. Pt used albuterol inh. Normotensive response to exercise. Test reviewed with Dr. Barnard. Referred By: Leonardo Albright Overread By: Xochitl Faria NP
[2021-10-28 10:28] LABS: Hematocrit 45.9 % (37.0-47.0); Hemoglobin 15.6 g/dl (12.0-16.0); Mean Corpuscular Hemoglobin 29.7 pg (27.0-33.0); Mean Corpuscular Volume 87.3 fL (80.0-98.0); Platelet Count 328 X10*3/uL (160-400); Red Blood Count 5.26 X10*6/uL (4.20-5.50); White Blood Count 9.4 X10*3/uL (4.8-10.8)
[2021-10-28 11:29] LABS: HCG Quantitative < 2 mIU/mL; TSH reflex Free T4 3.04 uIU/mL (0.32-4.0)
== END ==
LOC: HO.CARD 09:21
PROVIDERS: Absent Provider Obstetrics & Gynecology; PCP Internal Medicine; Visit Provider Surgery
DX: R94.31 Abnormal electrocardiogram [ECG] [EKG] (principal); N93.9 Abnormal uterine and vaginal bleeding, unspecified
CPT/HCPCS: 36415; 84443; 84702; 85027; 93017

== ENCOUNTER 2021-11-03 14:09 | Outpatient (REF) | payer OTHER, SELFPAY ==
--- NOTE | ~2021-11-03 | US_ITS ---
EXAMINATION: US PELVIS CLINICAL INFORMATION: Abnormal uterine and vaginal bleeding. COMPARISON: None. TECHNIQUE: Ultrasound of the pelvis is performed using both transabdominal and transvaginal transducers along with Doppler. Transvaginal imaging is performed due to inadequate visualization transabdominally. FINDINGS: Uterus: The uterus is anteverted and measures 9.32 x 4.86 x 5.8 cm. The double wall endometrial thickness is 0.76 cm. The uterus is smooth in contour and has normal myometrial echogenicity. No visible fibroid. There is fluid seen within the cervical canal. Adnexa: Both ovaries are visualized. There is normal color flow to the adnexa. There is no ovarian torsion. There is no pelvic ascites or fluid collection. Right ovary measures 3.5 x 2.16 x 3.07 cm and volume 12.15 mL. Left ovary measures 2.21 x 2.87 x 4.13 cm and volume 13.72 mL. US/US pelvic and transvaginal IMPRESSION: Unremarkable uterus and ovaries. Small amount of fluid seen within the cervical canal.
== END 2021-11-03 14:10 | disposition home or self-care (01) ==
LOC: HO.HMGCX 14:09
PROVIDERS: PCP Internal Medicine; Visit Provider Obstetrics & Gynecology
DX: N93.9 Abnormal uterine and vaginal bleeding, unspecified (principal)
CPT/HCPCS: 76830; 76856

== ENCOUNTER → 2021-11-07 08:12 | Outpatient (REF) | payer OTHER, SELFPAY ==
--- NOTE | ~2021-11-07 | NM_ITS ---
Lexiscan Myocardial perfusion study Indication: Abnormal EKG, assess for coronary disease and ischemia Technique: The patient was brought in for a Lexiscan perfusion study on 11/07/2021 and was injected 0.4 mg of Lexiscan intravenously. Within a minute of this injection 35 mCi of sestamibi was given intravenously. Images were obtained using the SPECT gamma camera interlaced with the gating device. Images were obtained in supine position. Resting perfusion study was performed on 11/10/2021. Patient was administered 35 mCi of sestamibi intravenously at rest. Images were then obtained in supine position. Total DLP 164mGy-cm. Images were processed with the software and compared side to side in short axis, horizontal long axis and vertical long axis views. Findings: Raw acquisition was reviewed. The stress perfusion study showed no significant perfusion abnormality. Both uncorrected as well as CT attenuation corrected images were reviewed. The gated study shows normal LV systolic function with calculated LVEF of 58%. LV cavity is normal in size. The gated study shows normal wall thickening and contraction of segments. Resting study shows no significant perfusion abnormality. Gating at rest reveals normal wall motion with ejection fraction at 65%. The findings are consistent with no definite reversible or fixed perfusion defects. NM/NM jody perf SPECT rest & str Impression: 1. Myocardial perfusion imaging study shows likely normal myocardial perfusion. 2. Gated LVEF is 58% during stress and 65% during rest. 3. Transient ischemic dilatation not present. EKG component of the test reported separately.
--- NOTE | 2021-11-07 08:15 | CA_ITS ---
Acquisition Time: 2021-11-07 08:18:40 Total Exercise Time: 00:02:00 Test Indications: ABN EKG Medications: SEE CHART Protocol: LEXISCAN Max HR: 127 BPM 70% of Pred: 181 BPM Max BP: 132/074 mmHG Max Work Load: 1.6 METS Pharmacological stress test with Lexiscan injection, while walking on treadmill, with mild sob, no chest discomfort, without arrythmia, with normotensive response to injection, with nondiagnostic EKG for ischemia, there were downsloping ST segments without depression which then normalized. In recovery she had fatigue and GI upset which was treated with Aminophylline 75mg IVP to reverse Lexiscan with resolution of symptoms. Nuclear images pending. Test reviewed with Dr Elias. Referred By: Constance Pardo Overread By: HECTOR DREW
== END ==
LOC: HO.CARD 08:12
PROVIDERS: Visit Provider Surgery
DX: I10 Essential (primary) hypertension (principal); R94.31 Abnormal electrocardiogram [ECG] [EKG]; E66.01 Morbid (severe) obesity due to excess calories; E24.9 Cushing's syndrome, unspecified; J45.30 Mild persistent asthma, uncomplicated; Z68.41 Body mass index [BMI] 40.0-44.9, adult
CPT/HCPCS: 78452; 93017; A9500; J0280; J2785

== ENCOUNTER 2021-11-18 12:33 | Outpatient (REF) | payer OTHER, SELFPAY | END 2021-11-18 12:34 | disposition home or self-care (01) | LOC: HO.LAB 12:33 | PROVIDERS: PCP Internal Medicine; Visit Provider Obstetrics & Gynecology | DX: N93.9 Abnormal uterine and vaginal bleeding, unspecified (principal) | CPT/HCPCS: 58100; 81025; 88305 ==

== ENCOUNTER → 2021-11-20 13:23 | Outpatient (BNVA) | payer OTHER, SELFPAY | PROVIDERS: PCP Internal Medicine; Visit Provider Surgery | DX: Z13.89 Encounter for screening for other disorder (principal) ==

== ENCOUNTER 2021-11-21 | Outpatient (REF) | payer OTHER, SELFPAY ==
[2021-11-21 08:51] LABS: MANUAL DIFF FLAG NO
[2021-11-21 09:07] LABS: Basophils Percent Auto 0.6 % (0-2); Eosinophils Absolute Auto 0.1 X10*3/uL (0.0-0.4); Eosinophils Percent Auto 1.5 % (0-4); Hematocrit 44.9 % (37.0-47.0); Hemoglobin 15.5 g/dl (12.0-16.0); Imm Gran Abs Auto 0.03 X10*3/uL (0.00-0.03); Imm Gran Pct Auto 0.5 % (0.0-0.4); Lymphocytes Percent Auto 30.4 % (20-40); Mean Corpuscular HGB Conc 34.5 g/dl (31.0-35.0); Mean Corpuscular Hemoglobin 30.7 pg (27.0-33.0); Mean Corpuscular Volume 88.9 fL (80.0-98.0); Mean Platelet Volume 10.5 fL (9.4-12.3); Monocytes Absolute Auto 0.5 X10*3/uL (0.1-1.2); Monocytes Percent Auto 7.4 % (2-11); Neutrophils Percent Auto 59.6 % (45-73); Platelet Count 333 X10*3/uL (160-400); Red Blood Count 5.05 X10*6/uL (4.20-5.50); Red Cell Distribution Width 13.2 % (11.0-16.0); White Blood Count 6.7 X10*3/uL (4.8-10.8)
[2021-11-21 09:11] LABS: INTERNATIONAL NORM RATIO 1.1 (0.9-1.1); Prothrombin Time 12.2 SEC (9.9-13.0)
[2021-11-21 09:14] LABS: Partial Thromboplastin Time 45.2 SEC (24.1-38.0)
[2021-11-21 09:17] LABS: Estimated Average Glucose 100 mg/dL; Hemoglobin A1c % 5.1 %
[2021-11-21 09:36] LABS: Alanine Aminotransferase 74 U/L (0-31); Albumin Level 4.1 g/dL (3.5-5.0); Alkaline Phosphatase 83 U/L (39-117); Anion Gap 14 (12-20); Aspartate Amino Transferase 39 U/L (5-31); Bilirubin Total 0.8 mg/dL (0.0-1.0); Blood Urea Nitrogen 12 mg/dL (9-16); C Reactive Protein 0.56 mg/dL (< or = 0.50); Calcium 9.8 mg/dL (8.4-10.2); Carbon Dioxide 25 mmol/L (22-29); Chloride 104 mmol/L (96-108); Cholesterol 172 mg/dL; Estimated Glomerular Filt Rate > 60; Glucose Random 94 mg/dL (60-115); HDL Cholesterol 33 mg/dL; LDL Cholesterol Calculated 113 mg/dl; Potassium 4.2 mmol/L (3.3-5.1); Sodium 139 mmol/L (135-145); Total Protein 7.1 g/dL (6.5-8.0); Triglycerides 134 mg/dL
[2021-11-21 10:01] LABS: Insulin 24 uU/mL (2-29); TSH reflex Free T4 3.07 uIU/mL (0.32-4.0)
== END 2021-11-21 00:01 ==
LOC: HO.LAB
PROVIDERS: PCP Internal Medicine; Visit Provider Surgery
DX: E66.01 Morbid (severe) obesity due to excess calories (principal); Z68.41 Body mass index [BMI] 40.0-44.9, adult
CPT/HCPCS: 36415; 80053; 80061; 83036; 83525; 84443; 85025; 85610; 85730; 86140

== ENCOUNTER 2021-11-25 05:58 | Inpatient (IN) | payer OTHER, SELFPAY ==
--- NOTE | 2021-11-22 18:10 | MHC.SHP ---
Pre-Procedural Eval Section A Date of Service: 11/22/21 The patient is an INPATIENT: Yes The History & Physical has been completed within 30 days and I have reviewed it.: Yes Section B Chief Complaint: obesity Relevant Family History (Specify if Yes): No Relevant Social History: None Present Medications: None Medical History: No relevant PMH History of Previous Operations: No relevant previous surgery Allergies: Allergies Allergy/AdvReac Type Severity Reaction Status Date / Time No Known Allergies Allergy Verified 11/21/21 10:42 [No Known Allergies*] Review of Systems Sugical H&P ROS: Negative: Constitution, Cardiovascular, Respiratory, Neurological, Psychiatric, Hem-Onc, Allergic/Immunologic, Gastrointestinal, Genitourinary, Musculoskeletal, Integumentary, Endocrine and Eyes/Ears/Nose/Throat Exam Surgical H&P Exam: Normal: HEENT, Normal: Heart, Normal: Lungs, Normal: Extremities, Normal: Abdomen, Normal: Skin and Normal: Neurological Plan Diagnosis/Plan: Unchanged I have reviewed the history and physical and performed a pertinent physical examination on my patient. No changes have occurred unless specified.
--- NOTE | 2021-11-24 08:38 | P.CONAN_ITS ---
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 Subsequent anesthesias without issue (GA-LMA 4 at [facility] [place] 2018) Per patient, anxiety with emergence. Feels like shes suffocating and needs to move . PMFSH Active Problems Active Problems: All Active Problems (Updated 11/21/21 @ 11:07 by Shelby Meier RN) Ovarian cyst (Acute ~03/2020) Vulvovaginal candidiasis (Acute) Perineal ulcer (Acute) Pelvic pain (Acute) Periumbilical abdominal pain (Acute) Irritable bowel syndrome with diarrhea (Acute) Hepatic steatosis (Acute) GERD (gastroesophageal reflux disease) (Acute) Bile salt-induced diarrhea (Acute) Well woman exam (Acute) Candidal vulvovaginitis (Acute) Urine incontinence (Acute) Supraclavicular mass (Acute) Depression with anxiety (Acute) Incisional pain (Acute) Urinary frequency (Acute) Spotting (Acute) Morbid obesity with BMI of 45.0-49.9, adult (Acute) Major depressive disorder, recurrent, moderate (Acute) Generalized anxiety disorder (Acute) Morbid obesity with BMI of 40.0-44.9, adult (Acute) Obesity (Acute) Abnormal EKG (Acute) Abnormal uterine bleeding (AUB) (Acute) Equivocal stress test (Acute) Hypertension (Acute) Hyperparathyroidism (Acute) Recurrent umbilical hernia (Acute) Dermatitis (Acute) Morbid obesity due to excess calories (Acute) Left knee pain (Acute) Right knee pain (Acute) Left hip pain (Acute) Corey's syndrome (Acute) Easy bruising (Acute) Carpal tunnel syndrome (Acute) Mild asthma (Acute) Lumbar pain (Acute) Bulging of cervical intervertebral disc (Acute) RADHA positive (Acute) Pre-diabetes (Acute) Polyarthralgia (Acute) Past Medical History Medical History (Updated 11/25/21 @ 10:40 by Leonardo Albright MD) ADHD RADHA positive Anemia Anxiety and depression Back pain Benign tumor Bulging of cervical intervertebral disc Carpal tunnel syndrome Chronic pain Whiteside's syndrome Dermatitis Easy bruising Fatty liver GERD (gastroesophageal reflux disease) Hyperparathyroidism Hypertension Hypoglycemia Irritable bowel syndrome with both constipation and diarrhea Left hip pain Left knee pain Liver fibrosis Lumbar pain Migraine Mild asthma Morbid obesity due to excess calories OLYA (obstructive sleep apnea) Pelvic pain Polyarthralgia Pre-diabetes Prolonged Q-T interval on ECG Recurrent umbilical hernia Right knee pain Sleep apnea with use of continuous positive airway pressure (CPAP) Family History Family History Mother Diabetes HTN (hypertension) Pulmonary edema Maternal Grandmother Cancer Sister Diabetes Father No problems noted. Family history of problems with anesthesia: No Surgical History Surgical History (Updated 11/25/21 @ 10:41 by Leonardo Albright MD) H/O section H/O laparoscopy H/O umbilical hernia repair History of bilateral tubal ligation History of endometrial ablation History of esophagogastroduodenoscopy (EGD) History of hysteroscopy History of mandibular surgery Hx laparoscopic cholecystectomy Hx of colonoscopy Hx of oral surgery Hx of tonsillectomy History of Problems with Anesthesia: Yes (Hx of DI 2013. Anesthesia since without issue (LMA at [facility] [place] 2018)) Social History Social History Household Members: Spouse Housing: Apartment Are you a primary hospice care consultant to a significant other at home: No Do you presently have visiting nurse or other home services: No Alcohol intake: never Patient Tobacco Use Status: Former Tobacco user Quit Date: 2011 Tobacco use type: Cigarette e-Cigarette/Vaping Use: Never Used Second Hand Smoke Exposure: No Use of substances other than those prescribed or required for medical reasons: No Have you been hit, kicked, punched, or otherwise hurt by someone within the past year? If so, by whom?: No Do you feel safe in your current relationship?: Yes Is there a partner from a previous relationship who is making you feel unsafe now?: No Are you made to feel afraid or neglected: No Are you DNR?: No Advance Directives: No Advance Directives Information Provided: Yes Advance Directives on File: No Do you have thoughts of harming others: None Do you have a plan to hurt others: No Plan Recently lost weight without trying: No How much weight loss: 34pounds or more Eating poorly because of decreased appetite: No Nutrition screen score: 4 Nutrition Risks: No Nutritional Risk Patient : No FDLMP: 10/2021 : No Poor oral hygiene: No service: No Current occupational status: unemployed Sexual orientation: Straight/Heterosexual Gender identity: Female Meds Allergies Allergy/AdvReac Type Severity Reaction Status Date / Time No Known Allergies Allergy Verified 11/21/21 10:42 [No Known Allergies*] Home Medications Medication Instructions Recorded Confirmed Last Taken Type fluticasone propionate 50 1 spray INTRANASAL DAILY 04/11/20 11/21/21 Unknown History mcg/actuation nasal spray,suspension albuterol sulfate 90 mcg/actuation 2 puff INHALATION Q6H PRN 08/21/21 11/21/21 Unknown History aerosol inhaler sennosides 8.6 mg capsule (senna) 8.6 mg PO DAILY PRN 08/21/21 11/21/21 Unknown History Exam Exam Date and Time: November 24, 2021 0838 Pertinent Lab Results Pertinent Lab Results: Laboratory Tests 11/21/21 08:34 Blood Type O Positive Antibody Screen NEGATIVE Laboratory Tests 11/21/21 11/21/21 08:49 08:49 WBC 6.7 Hgb 15.5 Hct 44.9 Plt Count 333 Sodium 139 Potassium 4.2 Chloride 104 Carbon Dioxide 25 BUN 12 Creatinine 0.73 Narrative Narrative: EKG 08/2021 Vent. Rate : 091 BPM ? ? Atrial Rate : 091 BPM ?? P-R Int : 162 ms? QRS Dur : 100 ms ? ? QT Int : 364 ms ? ? ? P-R-T Axes : 041 040 021 degrees ?? QTc Int : 447 ms ? Normal sinus rhythm Nonspecific T wave abnormality Abnormal ECG When compared with ECG of 23-NOV-2018 16:45, No significant change was found NM jody perf SPECT rest & str 11/2021 Impression: ? 1.? Myocardial perfusion imaging study shows likely normal myocardial perfusion. 2.? Gated LVEF is 58% during stress and 65% during rest. 3. Transient ischemic dilatation not present. ? EKG component of the test reported separately. Airway Mallampati Class: II (Discomfort with full mouth opening) TM Dist: >3cm Neck ROM: Full Partial: Lower Heart: RRR Lungs: CTAB Assessment and Plan Assessment Anesthesia Assessment: Anesthesia Plan Discussed and PAT Visit Final Anesthetic Review Family History of Problems with Anesthesia: No History of Problems with Anesthesia: Yes (Hx of DI 2013. Anesthesia since without issue (LMA at [facility] [place] 2018)) Documented by User: Bernardo Silver MD 11/25/21 18:41 [facility] Past Medical History Medical History (Updated 11/25/21 @ 10:40 by Leonardo Albright MD) ADHD RADHA positive Anemia Anxiety and depression Back pain Benign tumor Bulging of cervical intervertebral disc Carpal tunnel syndrome Chronic pain Corey's syndrome Dermatitis Easy bruising Fatty liver GERD (gastroesophageal reflux disease) Hyperparathyroidism Hypertension Hypoglycemia Irritable bowel syndrome with both constipation and diarrhea Left hip pain Left knee pain Liver fibrosis Lumbar pain Migraine Mild asthma Morbid obesity due to excess calories OLYA (obstructive sleep apnea) Pelvic pain Polyarthralgia Pre-diabetes Prolonged Q-T interval on ECG Recurrent umbilical hernia Right knee pain Sleep apnea with use of continuous positive airway pressure (CPAP) Family History Family History Mother Diabetes HTN (hypertension) Pulmonary edema Maternal Grandmother Cancer Sister Diabetes Father No problems noted. Surgical History Surgical History (Updated 11/25/21 @ 10:41 by Leonardo Albright MD) H/O section H/O laparoscopy H/O umbilical hernia repair History of bilateral tubal ligation History of endometrial ablation History of esophagogastroduodenoscopy (EGD) History of hysteroscopy History of mandibular surgery Hx laparoscopic cholecystectomy Hx of colonoscopy Hx of oral surgery Hx of tonsillectomy Social History Social History Household Members: Spouse Housing: Apartment Are you a primary hospice care consultant to a significant other at home: No Do you presently have visiting nurse or other home services: No Alcohol intake: never Patient Tobacco Use Status: Former Tobacco user Quit Date: 2011 Tobacco use type: Cigarette e-Cigarette/Vaping Use: Never Used Second Hand Smoke Exposure: No Use of substances other than those prescribed or required for medical reasons: No Have you been hit, kicked, punched, or otherwise hurt by someone within the past year? If so, by whom?: No Do you feel safe in your current relationship?: Yes Is there a partner from a previous relationship who is making you feel unsafe now?: No Are you made to feel afraid or neglected: No Are you DNR?: No Advance Directives: No Advance Directives Information Provided: Yes Advance Directives on File: No Do you have thoughts of harming others: None Do you have a plan to hurt others: No Plan Recently lost weight without trying: No How much weight loss: 34pounds or more Eating poorly because of decreased appetite: No Nutrition screen score: 4 Nutrition Risks: No Nutritional Risk Patient : No FDLMP: 10/2021 : No Poor oral hygiene: No service: No Current occupational status: unemployed Sexual orientation: Straight/Heterosexual Gender identity: Female Meds Allergies Allergy/AdvReac Type Severity Reaction Status Date / Time No Known Allergies Allergy Verified 11/21/21 10:42 [No Known Allergies*] Home Medications Medication Instructions Recorded Confirmed Last Taken Type fluticasone propionate 50 1 spray INTRANASAL DAILY 04/11/20 11/21/21 Unknown History mcg/actuation nasal spray,suspension albuterol sulfate 90 mcg/actuation 2 puff INHALATION Q6H PRN 08/21/21 11/21/21 Unknown History aerosol inhaler sennosides 8.6 mg capsule (senna) 8.6 mg PO DAILY PRN 08/21/21 11/21/21 Unknown History Exam Airway Loose/Missing/Broken Teeth: Yes (Loose teeth ) Assessment and Plan Assessment Anesthesia Assessment: Chart Reviewed Final Anesthetic Review NPO: Yes ASA Class: III Final Preanesthetic Review: Meds/Allgs Chart Reviewed, Consent Obtained/Reviewed and Anes Risks/Benef Reviewed Patient Risk: Intermediate Procedure Risk: Intermediate Anesthetic Plan Anesthetic Plan: GA Disposition: Inp. Admit - Standard Bed
[2021-11-24 12:33] VITALS: BP 118/64; PULSE 85; RESP 20; O2SAT 97; BMI 38.9
[2021-11-24 13:42] LABS: COVID-19 Test Negative (Negative)
[2021-11-25] VITALS (17 sets, daily range): BP systolic 122–158; BP diastolic 68–99; PULSE 76–95; RESP 14–18; TEMP 35.9–36.7; O2SAT 96–100
[2021-11-25] MEDS: Lactated Ringers 1,000 ML 999 ML IV (06:47)
--- NOTE | 2021-11-25 07:35 | PHA.MEDREC ---
Pharmacy Consult ? Medication Reconciliation Pharmacy has reviewed the medication reconciliation.
--- NOTE | 2021-11-25 10:32 | PM.OP ---
Brief Operative Note Date of Service: 11/25/21 Pre-op diagnosis: Morbid obesity with comorbidities (see below) Post-op diagnosis: same Procedure: INITIAL PATIENT BMI ON PRESENTATION AT OUR OFFICE: 46.7 kg/m2 LAST BMI BEFORE SURGERY: 40.2 kg/m2 COMORBIDITIES: sleep apnea on CPAP, asthma, GERD, hypertension, lower extremity edema, DJD, liver steatosis, liver fibrosis ?The patient presented to the Weight Management Program with significant obesity that was negatively impacting the patient's comorbidities as listed above.? The program is a phased program with a special focus on preoperative medical weight management to promote substantial weight loss and prepare the patients for the second phase of the program: bariatric surgery. The patient participated in an intensive weekly lifestyle ?intervention and exercise program during which the patient ?has lost between the initial office visit and the last preoperative visit 41.5lbs, or 15.98% of initial actual body weight. It was deemed appropriate for the patient to now have bariatric surgery. In light of the current Covid-19 pandemic and the well documented strong association of obesity and increased risk of worse outcomes if infected with Covid-19 (REFERENCES:https://pubmed.ncbi.nlm.nih.gov/73617235/,?https://pubmed.ncbi.nlm.nih.gov/02460321/), any delay in undergoing bariatric surgery may lead to the patient's worsening health condition and increased?risk of more severe Covid-19 disease if infected. In addition a recent?study from [facility] published in [employer] on 07/07/2021 ([email or web address]) found that, among patients with obesity, substantial weight loss achieved with surgery was associated with improved outcomes of COVID-19 infection. The findings suggest that obesity can be a modifiable risk factor for the severity of COVID-19 infection. In addition, the patient met the BMI-criteria for bariatric surgery based on the BMI on initial presentation. The patient should not be penalized for achieving such weight loss because ?it is not sustainable long-term without surgical intervention and it was achieved in preparation for bariatric surgery ?under my direction and based on my published research ([email or web address] and?[email or web address].soard.org/article/[email or web address])00575-X/pdf) ?that a 10% preoperative weight loss improves long-term weight loss after surgery and reduces perioperative complications.? Insurance carriers such as [facility] have endorsed my recommendations ?and have included in their policies criteria to include a 10% preoperative weight loss requirement. PROCEDURE: Esophago-gastroscopy, laparoscopic sleeve gastrectomy and laparoscopic gastropexy INDICATIONS: This is a 41 year-old female who was electively scheduled for laparoscopic, possibly open sleeve gastrectomy. The risks and complications of the procedure were discussed with the patient in advance, particularly the possibility of ; pulmonary embolism; staple line leak; bleeding; GERD; cardiac, pulmonary, or renal complications; as well as long-term problems such as insufficient weight loss, vitamin deficiency, strictures, or ulcers. The patient understood all the risks, and was in agreement to proceed with surgery. DESCRIPTION OF PROCEDURE: After informed consent was obtained from the patient, the patient was given preoperative antibiotics, and was transferred to the operating room. After successful induction of general anesthesia, pneumatic compression devices were placed on both lower extremities. An upper endoscopy was performed next. The oropharynx and esophagus appeared to be within normal limits. There was no diaphragmatic hernia present, consistent with the findings of the preoperative upper GI. The stomach was entered. Then after all fluid and air were suctioned and the stomach was fully decompressed, the scope was withdrawn and secured in the mid esophagus. The patient was then prepped and draped in the usual sterile manner, and abdominal access was established at the right upper quadrant with the Karolina technique. A 12 mm blunt port was inserted, and the abdomen was insufflated with CO2 to a pressure of 15 mmHg. Under direct visualization, additional ports were placed, specifically two 5 mm Versi-step ports to the left upper quadrant, and a 5 mm Versi-Step port to the right upper quadrant. 1% lidocaine plain was used to infiltrate all port sites as well as all fascia defects. Following that, the patient was placed in a steep reverse Trendelenburg position. There was no need for a liver retractor as the left lobe of the liver was very small. The gastro-esophageal fat pad was opened with the ultrasonic device (Thunderbeat, Olympus) and the anterior esophagus and hiatus were exposed. The angle of His was opened with the ultrasonic device the fundus of the stomach from any diaphragmatic and splenic attachments. I then opened the gastrocolic ligament between the transverse colon and the greater curvature of the stomach with the ultrasonic device to enter the lesser sac and facilitate the ligation of the short gastric vessels. I started at a mid-point along the greater curvature and using the Thunderbeat, all short gastric vessels were divided all the way to the angle of His until the left young was completely dissected at its entirety. I then divided the gastro-colic ligament distally to a distance of about 3-4 cm proximal to the pylorus. The stomach was then divided transversely with one Endo AUBREE-45 purple, two AUBREE-45 orange loads and three AUBREE-60 articulating orange loads using the AEON stapler and loads. Every effort was made that the gastric sleeve had a tubular shape and an even caliber throughout. Once the sleeve resection was completed, the staple line of the gastric sleeve was reinforced with Hemoclips. The resected stomach was retrieved without difficulty from the Karolina port. A gastropexy was then performed in order to prevent postoperative GERD and partial gastric volvulus. Several interrupted 2.0 Surgidac sutures were placed between the sleeve's staple line and the previously divided greater omentum and gastro-colic ligament using the Endo-Stitch device. ?An upper endoscopy was performed. There was no narrowing at the GE junction. The scope was easily advanced all the way to the pylorus which was clearly visualized. There was no narrowing anywhere and the sleeve's caliber was even throughout. The sleeve's staple line was inspected and there was no evidence of ischemia, bleeding or dehiscence. At that point the gastroscope was withdrawn from the patient?s mouth while we were decompressing the bowel and the stomach from any remaining air. I looked into the lesser sac to see how the sleeve was situating and it was situating well. There was no bleeding from the staple line, spleen, or short gastric vessels. The Mediflex retractor was removed, and the undersurface of the liver was inspected and there was no bleeding. The patient was placed in supine position. I closed the fascial defect of the 12 mm port site with a figure of eight #1 Polysorb suture. Then 100 cc 0.25 % Marcaine plain with 10 mg of Dexamethasone were used to infiltrate the fascial closure as well as all skin incisions. At this point, the abdomen was deflated, all ports were removed under direct vision, and no bleeding was noted from any of the port sites. The skin incisions were irrigated with saline and were closed with 4-0 absorbable monofilament sutures. Steri-Strips and OpSites were used to cover all incisions. The patient was extubated and was transferred in stable condition to the recovery room for further care. I was present and performed all gomez parts of the procedure. Mr. Perkins was the first aid attendant. There were no residents to assist with this case. Mitul Albright MD, PhD, FACS Surgeon: Leonardo Albright MD Anesthesia: GETA, local and other (TAP block and 7ml Zynrelef) Was an Network Services Project Manager used for this Procedure?: Yes Network Services Project Manager: Jamshid Perkins Estimated blood loss (mL): 10 IV fluids (mL): 2,500 Urine output (mL): 0 (No Meek to gravity) Pathology: other (Stomach) Condition: stable Disposition: PACU
--- NOTE | 2021-11-25 10:33 | P.DS_ITS ---
DS: Providers Provider Date of Service: 11/26/21 Date of admission: 11/25/21 05:58 Primary care physician: Jayne Conteh MD DS: Summary Hospital Course Hospital Course: ADMITTING DIAGNOSIS: morbid obesity, ADHD, krish's syndrome, depression, anxiety, hyperparathyroidism, htn, ibs, nasima ? DISCHARGE DIAGNOSIS: same, s/p laparoscopic sleeve gastrectomy ? PAST SURGICAL HISTORY: ? PROCEDURE: upper endoscopy, laparoscopic sleeve gastrectomy ? DISCHARGE SUMMARY: ? History of Present Illness: ? The patient is a?41 year-old woman with a BMI of?46.7 kg/m2 and associated co- morbidities as described above. The patient had extensive work-up,lost?41.5 lbs preoperatively and was electively scheduled for laparoscopic, possible open sleeve gastrectomy and gastropexy. Risks and complications of the surgery were discussed with the patient in advance, particularly the possibility of , pulmonary embolism, anastomotic leak, bleeding, bowel injury, GERD, cardiac, renal or pulmonary complications. The patient understood all the risks and was in agreement with the surgical plan. ? Hospital Course: ? The patient underwent an uneventful laparoscopic sleeve gastrectomy with gastropexy on the day of admission. Postoperatively, the patient was transferred to the surgical floor. The patient received IV Acetaminophen and IV dilaudid for pain control. Patient was started on bariatric phase 1 diet POD #0. On postoperative day one, the patient was feeling well without nausea, vomiting, fevers, or tachycardia. The patient had some mild incisional pain and the abdomen was soft. ? On the morning of postoperative day one, the patient was continued on 1 ounce of water or ice every half hour. During the day, the patient did fairly well, havi ng some incisional pain, but able to ambulate adequately and to tolerate liquids well. ? Since the patient is doing well, we decided that the patient was ready to be discharged. The patient was given instructions to follow-up with me next week and to call my office for any fever over 101, persistent abdominal pain, nausea, vomiting, GERD, symptoms of DVT such as calf tenderness, or leg swelling, or pulmonary embolism such as chest pain or shortness of breath. The patient was also instructed to drink 40-60 ounces of liquids per day using the 1-ounce cups. The patient had been given prescriptions for Tylenol for pain, Zofran prn for nausea, and pantoprazole and carafate previously. The patient was encouraged to ambulate and use the incentive spirometer. The patient was allowed to shower, but no baths, and encouraged to stay active at home. All of these instructions were given to the patient personally. All questions were answered and the patient understood all instructions, the instructions were also given to the patient in print. Time Spent with Patient Time attestation: Total time spent providing and/or coordinating discharge services: Discharge coordination time: Less than 30 minutes Quality: Safe Use of Opioids Does Pt have an Active Cancer Diagnosis on the Problem List?: No Quality: Stroke Does the patient have a stroke diagnosis?: No Physical Exam Vital Signs: Vital Signs: Last Vital Signs Temp 96.7 F L 11/25/21 06:18 Pulse 77 11/25/21 06:18 Resp 16 11/25/21 06:18 BP 122/71 11/25/21 06:18 Pulse Ox 96 11/25/21 06:18 BMI result Body Mass Index 38.9 DS: Data Data Completed and Pending Pending studies at discharge: Pending at discharge 11/25/21 09:57 Surgical [PTH] Routine Labs on day of discharge: Laboratory Results - last 24 hr 11/24/21 13:00 COVID-19 (BATOOL) Negative COVID-19 Clin Com See Note Discharge Plan Discharge Patient Disposition: Home, Self-Care Discharge Diagnosis: s/p laparoscopic sleeve gastrectomy Referrals: Jayne Watkins MD [Primary Care Provider] - 1 Week Discharge Medications: Continued fluticasone propionate 50 mcg/actuation spray,suspension 1 spray intranasal DAILY 0RF albuterol sulfate 90 mcg/actuation HFA aerosol inhaler 2 puff inhalation Q6H PRN (Reason: Wheezing) 0RF senna 8.6 mg capsule 8.6 mg PO DAILY PRN (Reason: Constipation) 0RF sucralfate 100 mg/mL suspension 10 ml PO BID Qty: 400 2RF ondansetron HCl 4 mg tablet 4 mg PO Q12H Qty: 20 0RF pantoprazole 40 mg tablet,delayed release (DR/EC) 40 mg PO DAILY Qty: 30 2RF Discontinued ibuprofen 800 mg tablet 800 mg PO Q8H PRN (Reason: pain) 30 Days Qty: 90 1RF furosemide 20 mg tablet 20 mg PO DAILY 90 Days Qty: 90 1RF ergocalciferol (vitamin D2) 1,250 mcg (50,000 unit) capsule 1,250 mcg PO QWEEK 90 Days Qty: 13 0RF omeprazole 20 mg capsule,delayed release(DR/EC) 20 mg PO QAM 30 Days Qty: 30 6RF polyethylene glycol 3350 [Miralax] 17 gram powder in packet 17 g PO DAILY Qty: 14 0RF Rx Instructions: Do 7 packets of Miralax, mixing each one with 8oz of water on 11/23/21 and another 7 packets on 11/24/21 Discharge Orders: Discharge Order (Routine); Ordered 11/26/21 Ordered By: Leonardo Albright Diet: other Activity on Discharge: No heavy lifting Stand Alone Forms: Patient Portal Discharge page Care Plan Goals: weight loss Health Concerns: obesity Plan of Treatment: No tub baths, sex or returning to work until discussed at first post op appointment. No exercise, alcohol, tobacco or illegal drug use. Continue to use incentive spirometer hourly while awake. Walk in home for 5- 10 minutes every 2 hours during the first week. Follow all instructions in the bariatric handbook and call with any questions.Discharge Instructions 1. Please call your doctor or come back to the emergency room should any new symptoms arise. 2. You will receive a courtesy call from [facility] 24-48 hours after discharge. 3. Activity: abstain from alcohol, practice limited stair climbing, no bending, no driving, no exercise, no illicit substances, no lifting, no sex, no tub bath, no work. 4. Diet: continue as discussed with Dr. Albright. 5. Dressing Change/Wound Care: Your incision is covered by clear bandages and guaze underneath. If the area is tender, you may apply an ice pack for short intervals (no more than 20 minutes on, followed by at least 20 minutes off). Do not apply heat. Do not use creams, lotions, or topical antibiotics unless instructed to do so by your surgeon. These can cause infection or allergic reaction. 6. Call your doctor if: - Your temperature exceeds 101.5 F - You experience excessive pain or swelling - You have an unexpected reaction to medication - You have excessive bleeding - You experience continued vomiting/nausea - Your incision begins to separate - Your incision shows signs of infection such as increased redness, swelling, excessive pain, heat, or drainage (light blood or clear fluid is normal) 7. General instructions: No lifting greater than 5 lbs for the next 4 weeks[address] driving within 24 hours of taking narcotic pain medications. If you do not move your bowels in the next 2 days, please take milk of magnesia over the counter. Please follow the post op diet and do not advance your diet until you are seen in the office in about 2 weeks. Please walk around your home every hour or two to prevent blood clots from forming in your legs. You do not need to wake from sleeping to walk. Please sleep in a bed or couch to prevent kinking at the hips and knees. Please take your incentive spirometer (your lung instructional paraprofessional) home with you and use it for the next few days to prevent pneumonias. You may shower, no hot tubs, baths or swimming pools. Please call the office with any questions or concerns such as increasing abdominal pain, fever, chills, shortness of breath, chest pain, leg pain or swelling, or redness or drainage from your incisions. Please stay on stage 3 diet which includes sugar free clear liquids such as ice pops and jello and broth and crystal light. Avoid all carbonation. Please drink 3 protein shakes with at least 25-30 grams of protein daily or 3 of the Celebrate 4:1 shakes which can be purchased in our office. The Celebrate shakes have all of the bariatric vitamins you need if you consume these shakes. If you are drinking other protein shakes, you will need to purchase the Celebrate multivitamins and calcium that we provide in the office (they will provide all the vitamins you need). Please make sure you are consuming at least 40-60 ounces of water in addition to your 3 protein shakes daily. Do not hesitate to contact the office with any questions at . The patient's medical history has been reviewed and they are considered low risk for post op DVT and therefore DVT prophylaxis is not considered necessary. Travel after surgery was reviewed. The patient has not disclosed any travel plans during the first 30 days after surgery and they have been advised that within the first 30 days after surgery any bus, plane, train or car travel over 2 hours in duration is contraindicated due to the possibility of developing blood clots from immobility. Any travel, needs to include periods of ambulation of 10 minutes in duration every 2 hours.? The patient was instructed to discuss any plans for travel during this period with their bariatric surgeon. Assessment: stable s/p laparoscopic sleeve gastrectomy Discharge Date/Time: 11/26/21 10:10
--- NOTE | 2021-11-25 10:38 | PM.PNGS ---
Subjective Subjective Date of Service: 11/26/21 Interval history: Patient has mild incisional pain, but was able to ambulate and use the incentive spirometer. She is tolerating phase 1 bariatric diet Physical Exam Vital Signs: Vital Signs: Last Vital Signs Temp 96.7 F L 11/25/21 06:18 Pulse 77 11/25/21 06:18 Resp 16 11/25/21 06:18 BP 122/71 11/25/21 06:18 Pulse Ox 96 11/25/21 06:18 BMI result Body Mass Index 38.9 GI: Inspection: Yes normal to inspection, Yes incision (clean, dry and intact) and Yes obesity Extrem: Right lower extremity: normal to inspection (no calf tenderness) Left lower extremity: normal to inspection (no calf tenderness) Objective Data Active Medications Albuterol Sulfate (Albuterol Sulfate (0.083%) 2.5 Mg/3 Ml Vial.Neb) 2.5 mg INHALE ONCE PRN PRN Reason: Shortness of Breath/Wheezing Famotidine (Famotidine/Pf 20 Mg/2 Ml Vial) 20 mg IVPUSH BID SHERICE Fentanyl (Fentanyl Citrate/Pf 100 Mcg/2 Ml Vial) 25 mcg IVPUSH Q5M PRN; Protocol PRN Reason: Pain, Moderate (Pain Scale 4-6 Hydromorphone HCl (Hydromorphone Hcl 0.5 Mg/0.5 Ml Syringe) 0.25 mg IVPUSH Q5M PRN; Protocol PRN Reason: Pain, Severe (Pain Scale 7-10) Lactated Ringer's (Lr) 1,000 mls @ 100 mls/hr IVCONT .Q10H [facility] Promethazine HCl 6.25 mg/ (Sodium Chloride) 50.25 mls @ 201 mls/hr IV ONCE PRN PRN Reason: Nausea and Vomiting Lactated Ringer's (Lr) 1,000 mls @ 100 mls/hr IVCONT .Q10H SHERICE Cefazolin Sodium/Dextrose (Ancef) 2 gm in 50 mls @ 100 mls/hr IV POSTOP ONE Stop: 11/25/21 11:05 Metoclopramide HCl (Metoclopramide Hcl 10 Mg/2 Ml Vial) 10 mg IVPUSH Q6H PRN PRN Reason: Nausea Labs CBC & Chem 7: 11/25/21 11:06 11/25/21 11:07 Labs: Laboratory Results - last 24 hr 11/24/21 13:00 COVID-19 (BATOOL) Negative COVID-19 Clin Com See Note Procedures Date of Service Date of Service: 11/26/21 Progress Note: A&P Assessment and plan (1) Morbid obesity due to excess calories: Status: Acute (2) Pre-diabetes: Status: Acute (3) Mild asthma: Status: Acute (4) Hypertension: Status: Acute (5) GERD (gastroesophageal reflux disease): Status: Acute (6) Hepatic steatosis: Status: Acute (7) Sleep apnea with use of continuous positive airway pressure (CPAP): Status: Acute (8) Urine incontinence: Status: Acute (9) Liver fibrosis: Status: Acute (10) Status post sleeve gastrectomy: Status: Acute Plan s/p laparoscopic sleeve gastrectomy, and gastropexy Doing well Check am labs. If OK, will discharge home? Time Spent With Patient Time: Total time spent is greater than 50% in coordination of care (as documented) at patient's floor/unit and/or counseling patient: Quality Stroke Does the patient have a stroke diagnosis?: No VTE Prior VTE?: No VTE Risk Level:: Surgical - moderate VTE Device Contraindication: N/A - Device Ordered VTE Drug Contraindication: Treatment Not Indicated
[2021-11-25] MEDS: Lactated Ringers 1,000 ML 100 ML IVCONT ×2 (10:50→22:17)
[2021-11-25] MEDS: Famotidine/PF 20 MG/2 ML VIAL IVPUSH ×2 (11:04→22:16)
[2021-11-25] MEDS: HYDROmorphone HCl 0.5 MG/0.5 ML SYRINGE 0.25 MG IVPUSH (11:10)
[2021-11-25 11:12] LABS: Hematocrit 45.5 % (37.0-47.0); Hemoglobin 15.4 g/dl (12.0-16.0)
[2021-11-25 11:30] LABS: Anion Gap 13 (12-20); Blood Urea Nitrogen 9 mg/dL (9-16); Calcium 9.5 mg/dL (8.4-10.2); Carbon Dioxide 24 mmol/L (22-29); Chloride 105 mmol/L (96-108); Creatinine Clr Calc Pharmacy 96.3; Estimated Glomerular Filt Rate > 60; Glucose Random 108 mg/dL (60-115); Potassium 4.4 mmol/L (3.3-5.1); Sodium 138 mmol/L (135-145)
[2021-11-25] MEDS: Metoclopramide HCl 10 MG/2 ML VIAL IVPUSH (13:47)
[2021-11-25] MEDS: ondansetron HCL 4 MG/2 ML VIAL IVPUSH ×2 (15:36→23:38)
--- NOTE | 2021-11-25 17:31 | PC.NURSE ---
Pt arrived to unit, ambulated to BR- voided first time postop. 5 DSD to upper abdomen CDI, abdominal binder on. No c/o pain at this time
[2021-11-26] VITALS: BP 128/62; PULSE 82; RESP 17; TEMP 36.7; O2SAT 99
[2021-11-26 03:43] VITALS: BP 136/68; PULSE 83; RESP 18; TEMP 36.6; O2SAT 97
[2021-11-26 07:50] VITALS: BP 141/71; PULSE 78; RESP 16; TEMP 36.9; O2SAT 98
--- NOTE | 2021-11-26 14:12 | HO.POSTANES ---
Post Anesthesia Evaluation Post Anesthesia Evaluation Vital Signs: Vital Signs Temp Pulse Resp BP Pulse Ox 11/26/21 07:50 98.5 F 78 16 141/71 H 98 11/26/21 03:43 97.9 F 83 18 136/68 97 Anesthesia: General Endotracheal-GETA Mental Status: Awake Pain Control: Satisfactory Nausea/Vomiting: None Hydration: Adequate Anesthesia-Related Issues: No Anes. Related Issues
== END 2021-11-26 10:10 | disposition home or self-care (01) | DRG 403 ==
LOC: HO.SSSA 10:33 → HO.S3 12:58
PROVIDERS: Physician Assistant Surgical; Admitting Provider Surgery; PCP Internal Medicine; Visit Provider Surgery
PROC: 0DB64Z3 Excision of Stomach, Percutaneous Endoscopic Approach, Vertical (ICD-10-PCS; CPT 43845; principal; 2021-11-25 07:30)
DX: E66.01 Morbid (severe) obesity due to excess calories (principal); K74.00 Hepatic fibrosis, unspecified; E21.3 Hyperparathyroidism, unspecified; K76.0 Fatty (change of) liver, not elsewhere classified; F90.9 Attention-deficit hyperactivity disorder, unspecified type; K21.9 Gastro-esophageal reflux disease without esophagitis; G47.30 Sleep apnea, unspecified; J45.909 Unspecified asthma, uncomplicated; I10 Essential (primary) hypertension; M19.90 Unspecified osteoarthritis, unspecified site; R60.0 Localized edema; Z20.822 Contact with and (suspected) exposure to COVID-19; Z98.51 Tubal ligation status; Z68.41 Body mass index [BMI] 40.0-44.9, adult; Z79.891 Long term (current) use of opiate analgesic; Z79.51 Long term (current) use of inhaled steroids; Z79.899 Other long term (current) drug therapy
CPT/HCPCS: 36415; 80048; 85014; 85018; 86850; 86900; 86901; 87635; 88307; 88342; 99024; A4649; C9088; J0131; J0690; J1100; J1170; J2250; J2405; J2550; J2765; J3010

== ENCOUNTER → 2021-12-02 13:02 | Outpatient (BNVA) | payer OTHER, SELFPAY | PROVIDERS: PCP Internal Medicine; Referring Provider Internal Medicine; Visit Provider Surgery | DX: Z13.89 Encounter for screening for other disorder (principal) ==

== ENCOUNTER → 2021-12-23 15:42 | Outpatient (BNVA) | payer OTHER, SELFPAY | PROVIDERS: PCP Internal Medicine; Visit Provider Dietitian, Registered | DX: E66.9 Obesity, unspecified (principal); Z68.33 Body mass index [BMI] 33.0-33.9, adult; Z98.84 Bariatric surgery status | CPT/HCPCS: 97803 ==

== ENCOUNTER 2022-01-05 08:26 | Outpatient (REF) | payer OTHER, SELFPAY ==
[2022-01-05 14:26] LABS: CT PCR NOT DETECTED (Not Detect.); NG PCR NOT DETECTED (Not Detect.)
[2022-01-06 09:22] LABS: BV Int Neg Control Negative (Negative); BV Int Pos Control Positive (Positive)
== END 2022-01-05 08:27 | disposition home or self-care (01) ==
LOC: HO.LAB 08:26
PROVIDERS: Visit Provider Obstetrics & Gynecology
DX: R37 Sexual dysfunction, unspecified (principal); N39.0 Urinary tract infection, site not specified
CPT/HCPCS: 87086; 87147; 87480; 87491; 87510; 87591; 87660; 99212

== ENCOUNTER → 2022-01-06 15:05 | Outpatient (BNVA) | payer OTHER, SELFPAY | PROVIDERS: PCP Internal Medicine; Referring Provider Physician Assistant Surgical; Visit Provider Dietitian, Registered | DX: E66.9 Obesity, unspecified (principal); Z68.32 Body mass index [BMI] 32.0-32.9, adult; Z98.84 Bariatric surgery status; Z71.3 Dietary counseling and surveillance | CPT/HCPCS: 97803 ==

== ENCOUNTER → 2022-01-07 17:00 | Outpatient (BNVA) | payer OTHER, SELFPAY | PROVIDERS: PCP Internal Medicine; Visit Provider Counselor Mental Health ==

== ENCOUNTER → 2022-01-13 14:54 | Outpatient (BNVA) | payer OTHER, SELFPAY | PROVIDERS: PCP Internal Medicine; Visit Provider Counselor Mental Health | DX: F33.1 Major depressive disorder, recurrent, moderate (principal); F41.1 Generalized anxiety disorder; Z98.84 Bariatric surgery status; Z71.3 Dietary counseling and surveillance | CPT/HCPCS: 90834 ==

== ENCOUNTER → 2022-01-21 17:00 | Outpatient (BNVA) | payer OTHER, SELFPAY | PROVIDERS: PCP Internal Medicine; Visit Provider Counselor Mental Health ==

== ENCOUNTER → 2022-02-03 13:58 | Outpatient (BNVA) | payer OTHER, SELFPAY | PROVIDERS: PCP Internal Medicine; Referring Provider Physician Assistant Surgical; Visit Provider Dietitian, Registered | DX: E66.9 Obesity, unspecified (principal); Z68.30 Body mass index [BMI] 30.0-30.9, adult; Z71.3 Dietary counseling and surveillance | CPT/HCPCS: 97803 ==

== ENCOUNTER → 2022-02-18 14:31 | Outpatient (BNVA) | payer OTHER, SELFPAY | PROVIDERS: PCP Internal Medicine; Referring Provider Physician Assistant Surgical; Visit Provider Dietitian, Registered | DX: E66.9 Obesity, unspecified (principal); Z68.30 Body mass index [BMI] 30.0-30.9, adult; Z98.84 Bariatric surgery status; Z71.3 Dietary counseling and surveillance | CPT/HCPCS: 97803 ==

== ENCOUNTER → 2022-03-27 14:04 | Outpatient (BNVA) | payer OTHER, SELFPAY | PROVIDERS: PCP Internal Medicine; Referring Provider Physician Assistant Surgical; Visit Provider Dietitian, Registered | DX: E66.3 Overweight (principal); Z68.29 Body mass index [BMI] 29.0-29.9, adult; Z98.84 Bariatric surgery status; Z71.3 Dietary counseling and surveillance | CPT/HCPCS: 97803 ==

== ENCOUNTER → 2022-04-27 14:29 | Outpatient (BNVA) | payer OTHER, SELFPAY | PROVIDERS: PCP Internal Medicine; Referring Provider Physician Assistant Surgical; Visit Provider Dietitian, Registered | DX: E66.3 Overweight (principal); Z83.3 Family history of diabetes mellitus | CPT/HCPCS: 97803 ==

== ENCOUNTER → 2022-05-28 11:35 | Outpatient (BNVA) | payer OTHER, SELFPAY | PROVIDERS: PCP Internal Medicine; Referring Provider Internal Medicine; Visit Provider Physician Assistant Surgical | DX: E66.3 Overweight (principal); L98.7 Excessive and redundant skin and subcutaneous tissue; Z90.3 Acquired absence of stomach [part of]; Z68.27 Body mass index [BMI] 27.0-27.9, adult | CPT/HCPCS: 99212 ==

== ENCOUNTER → 2022-06-11 09:15 | Outpatient (BNVA) | payer OTHER, SELFPAY | PROVIDERS: PCP Internal Medicine; Visit Provider Dietitian, Registered | DX: E66.9 Obesity, unspecified (principal); Z68.27 Body mass index [BMI] 27.0-27.9, adult | CPT/HCPCS: 97803 ==

== ENCOUNTER → 2022-08-13 11:13 | Outpatient (BNVA) | payer OTHER, SELFPAY | PROVIDERS: PCP Internal Medicine; Visit Provider Dietitian, Registered | DX: E66.3 Overweight (principal); Z68.27 Body mass index [BMI] 27.0-27.9, adult | CPT/HCPCS: 97803 ==

== ENCOUNTER 2022-08-21 19:19 | Emergency (ER) | payer OTHER, SELFPAY ==
--- NOTE | ~2022-08-21 | XR_ITS ---
EXAMINATION: XR KNEE, RIGHT CLINICAL INFORMATION: Pain COMPARISON: None TECHNIQUE: Four views of the right knee. FINDINGS: No acute fracture or dislocation. Alignment is anatomic. Joint spaces are well maintained. Trace knee joint effusion. No abnormal soft tissue calcification. XR/XR knee RT 4V IMPRESSION: * No acute fracture or dislocation. * Trace knee joint effusion.
[2022-08-21 21:26] VITALS: BP 120/64; PULSE 74; RESP 16; TEMP 36.9; O2SAT 98; BMI 28.7
--- NOTE | 2022-08-22 00:01 | ED_ITS ---
HPI - Extremity Problem General Chief complaint: Extremity Problem Stated complaint: R Knee pain, cant walk, cant extend it Time Seen by Provider: 08/21/22 23:03 Source: patient Mode of arrival: ambulatory Limitations: no limitations History of Present Illness HPI Narrative: 41-year-old female presents with unilateral right knee pain. Patient tells me pain is severe, constant worse w/ movement and better at rest. Patient denies any focal trauma but states that she was on her knees a couple days ago scrubbing floors. 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 Patient states that she has mild chronic knee pain bilaterally at baseline. Patient has not tried anything to relieve the pain. Patient had bariatric surgery 1 year ago and states mild b/l knee pain since. Patient denies any fractures, redness, bruising , or open lacerations. Patient denies for fever, chills, chest pain, shortness of breath, numbness, tingling. Related Data Home Medications Medication Instructions Recorded Confirmed fluticasone propionate 50 1 spray intranasal DAILY 04/11/20 05/28/22 mcg/actuation nasal spray,suspension cholecalciferol (vitamin D3) 25 25 mcg PO DAILY 01/05/22 05/28/22 mcg (1,000 unit) capsule acetaminophen 500 mg capsule 500 mg PO Q6H PRN 05/28/22 05/28/22 Previous Rx's Medication Instructions Recorded albuterol sulfate 90 mcg/actuation 2 puff inhalation Q6H PRN Wheezing 12/12/21 aerosol inhaler #8.5 grams sennosides 8.6 mg tablet (senna) 17.2 mg PO BEDTIME #60 tabs 12/15/21 clotrimazole 1 % topical cream 1 appl topical BID #45 grams 05/28/22 Allergies Allergy/AdvReac Type Severity Reaction Status Date / Time No Known Allergies Allergy Verified 08/21/22 21:30 [No Known Allergies*] Review of Systems Review of Systems: Constitutional : No Weight loss, No Fever, No Chills, No Fatigue, No Malaise ENT/Mouth : No sore throat, No Rhinorrhea Eyes: No Eye Pain, No Swelling, No Redness Cardiovascular : No Chest Pain, No SOB, No Dyspnea on Exertion, No Orthopnea, No Edema, No Palpitations Respiratory : No Cough, No Sputum, No Wheezing Gastrointestinal : No Nausea, No Vomiting, No Diarrhea, No Constipation, No abdominal Pain, No Hematochezia, No Melena Genitourinary : No Dysuria, No Urinary Frequency, No Hematuria, Musculoskeletal : + joint pain, No Myalgias, + Joint Swelling Skin : No Skin Lesions, No rash Neuro : No Weakness, No Numbness, No Dizziness, No Headache Psych : No Anxiety/Panic, No Depression All other systems reviewed and are negative Yes all other systems are reviewed and are negative [facility] Past Medical History Attestation statement: The following information was validated with the patient. Source: old records reviewed and nursing notes reviewed Medical History ADHD JAYNE positive Anemia Anxiety and depression Back pain Benign tumor Bulging of cervical intervertebral disc Carpal tunnel syndrome Chronic pain [place]'s syndrome Dermatitis Easy bruising Fatty liver GERD (gastroesophageal reflux disease) Hyperparathyroidism Hypertension Hypoglycemia Irritable bowel syndrome with both constipation and diarrhea Left hip pain Left knee pain Liver fibrosis Lumbar pain Migraine Mild asthma Morbid obesity due to excess calories OLYA (obstructive sleep apnea) Pelvic pain Polyarthralgia Pre-diabetes Prolonged Q-T interval on ECG Recurrent umbilical hernia Right knee pain Sleep apnea with use of continuous positive airway pressure (CPAP) Surgical History H/O section H/O laparoscopy H/O umbilical hernia repair History of bilateral tubal ligation History of endometrial ablation History of esophagogastroduodenoscopy (EGD) History of hysteroscopy History of mandibular surgery Hx laparoscopic cholecystectomy Hx of colonoscopy Hx of oral surgery Hx of tonsillectomy Status post sleeve gastrectomy Family History Family History Mother Diabetes HTN (hypertension) Pulmonary edema Maternal Grandmother Cancer Sister Diabetes Father No problems noted. Social History Social History Household Members: Spouse Housing: Apartment Are you a primary child daycare worker to a significant other at home: No Do you presently have visiting nurse or other home services: No Alcohol intake: never Patient Tobacco Use Status: Former Tobacco user Quit Date: 2011 Tobacco use type: Cigarette e-Cigarette/Vaping Use: Never Used Second Hand Smoke Exposure: No Advance Directives: No Advance Directives Information Provided: No service: No Current occupational status: unemployed Sexual orientation: Straight/Heterosexual Gender identity: Female Cognitive needs: No Hearing needs: No Vision needs: Yes Physical Exam Vital Signs: Vital Signs: Last Vital Signs Temp 98.4 F 08/21/22 21:26 Pulse 74 08/21/22 21:26 Resp 16 08/21/22 21:26 BP 120/64 08/21/22 21:26 Pulse Ox 98 08/21/22 21:26 O2 Del Method 08/21/22 21:26 BMI result Body Mass Index 28.7 vss Appearance: Alert.? Oriented X3.? No acute distress.? Head: Normocephalic, atraumatic, no step-offs or deformities Eyes: Pupils equal, round and reactive to light.? CVS: Normal heart rate and rhythm.? Pulses normal.? Respiratory: No respiratory distress.? Breath sounds normal.? Abdomen: Soft and nontender.? Skin: Skin warm and dry.? Normal skin color.? Normal skin turgor.? Extremities: No lower extremity edema.? No calf ttp and negative Hardeep. 5/5 strength to bilateral upper and lower extremities. Bilateral knees with full range of motion however patient reports pain with range of motion of right knee. No overlying skin changes. 2+ dorsalis pedis, anterior tibialis, posterior tibialis, popliteal pulses equal bilateral. No foot drop. Normal capillary refill to lower extremities. Patient reports pain with palpation of entire right knee. There is a small joint effusion noted to right knee. Back: No midline tenderness, no C-spine tenderness, full range of motion, no CVA tenderness bilaterally Neuro: Oriented X 3.? No motor deficit.? No sensory deficit. CN 2-12 intact Course Reevaluation(s) Reevaluation #1: X-ray of right knee consistent with knee effusion. Ray wrap will be applied. I do suspect inflammatory arthritis. Patient will be discharged home on prednisone, patient takes acetaminophen for pain she has pain medicine at home. Will have her follow-up with Ortho. Again I do not suspect threatened limb or septic joint. Educated patient on diagnosis and treatment plan, answered all question, patient verbalizes understanding. At this time patient will be discharged home, advised to return with new or worsening symptoms. Educated on worrisome signs and symptoms and when to return. At this time I feel comfortable discharge home. Time: 00:20 Medical Decision Making Medical Decision Making MDM Narrative: 41-year-old female presents with severe unilateral right knee pain , atraumatic in nature. On exam Patient has painful range of motion of right knee due to pain on physical exam. However full range of motion. Full range of motion with both hips and ankles. Right Mild swelling of the right knee. Right Knee was also tender to palpation. Patient had relief of right knee pain when in full flexion no patellar pain. To know although I did see a small joint effusion on exam I do not feel as though this patient would benefit from joint aspiration. Suspecting knee effusion versus fracture versus arthritis versus inflammatory arthritis. Unlikely that this is septic joint, threatened limb, DVT ear arterial occlusion. No signs of fracture, dislocation or acute ligament or tendon tear. Patient will likely need physical therapy upon discharge and encouraged to rest knee for the next couple days. Differential Diagnosis Differential Diagnoses: The differential diagnosis associated with the presentation includes Suspecting knee effusion versus fracture versus arthritis versus inflammatory arthritis. Unlikely that this is septic joint, threatened limb, DVT ear arterial occlusion Admission/Observation Consideration of admission/observation: Escalation of care including admission/observation considered Independent Interpretation I performed an independent interpretation of an: Plain X-Ray (knee effusion ) Radiology Impression Discussion of test interpretation with radiology: I have reviewed the radiologist's reading. Core Measures AMI core measures followed: Yes Measure exclusions: not indicated Critical Care Time Critical Care Time Critical Care Time: No Discharge Plan Discharge Clinical Impression: Effusion of right knee Patient Disposition: Home, Self-Care Instructions: Swollen Joint (ED) Additional Instructions: Take your medications as prescribed. If you were prescribed antibiotics today, it is important that you take your medication to their entirety, do not skip any doses, do not finish them early. Follow-up with your primary care provider this week. Follow-up with the orthopedic team if symptoms do not improve in a week or 2. Return to the emergency department with new or worsening symptoms. Such as fevers, chills, chest pain, shortness of breath, nausea, vomiting, dizziness, headache, vision changes, lethargy, numbness, tingling, overlying skin changes such as redness, warmth or worsening swelling. In case of emergency call 911 Take Tylenol as needed for pain or discomfort Prescriptions: No Action sennosides [senna] 8.6 mg tablet 17.2 mg PO BEDTIME Qty: 60 6RF albuterol sulfate 90 mcg/actuation HFA aerosol inhaler 2 puff inhalation Q6H PRN (Reason: Wheezing) Qty: 8.5 1RF fluticasone propionate 50 mcg/actuation spray,suspension 1 spray intranasal DAILY acetaminophen 500 mg capsule 500 mg PO Q6H PRN clotrimazole 1 % cream 1 appl topical BID Qty: 45 3RF cholecalciferol (vitamin D3) 25 mcg (1,000 unit) capsule 25 mcg PO DAILY Referrals: [facility] [Provider Group] - 2 days Jayne Watkins MD [Primary Care Provider] - 2 days Stand Alone Forms: Work/School Release
[2022-08-22] MEDS: Acetaminophen 325 MG TABLET 975 MG PO (01:10)
[2022-08-22] MEDS: predniSONE 10 MG TABLET 40 MG PO (01:10)
== END 2022-08-22 01:19 | disposition home or self-care (01) ==
PROVIDERS: Emergency Provider Emergency Medicine; PCP Internal Medicine
DX: M25.461 Effusion, right knee (principal); Z87.891 Personal history of nicotine dependence; Z79.899 Other long term (current) drug therapy
CPT/HCPCS: 73564; 99283

== ENCOUNTER 2022-08-26 19:07 | Outpatient (REF) | payer OTHER, SELFPAY | END 2022-08-26 19:08 | disposition home or self-care (01) | LOC: HO.HOSX 19:07 | PROVIDERS: Visit Provider Physician Assistant | DX: Z13.89 Encounter for screening for other disorder (principal) ==

== ENCOUNTER 2022-08-27 11:13 | Outpatient (REF) | payer OTHER, SELFPAY ==
--- NOTE | ~2022-08-27 | XR_ITS ---
EXAMINATION: SINGLE SUNRISE VIEW OF THE PATELLA CLINICAL INFORMATION: Pain COMPARISON: Standing knee radiographs 08/27/2022 TECHNIQUE: Single sunrise view of the patella. XR/XR knee RT 1V FINDINGS/IMPRESSION: No acute fractures. Soft tissue structures are within normal limits. Joint space preserved without evidence of osteoarthritis on this single view.
--- NOTE | ~2022-08-27 | XR_ITS ---
EXAMINATION: XR KNEE AP STANDING CLINICAL INFORMATION: Pain in unspecified knee COMPARISON: None TECHNIQUE: AP bilateral standing view of the knees was obtained. FINDINGS: No fracture or joint effusion. Alignment is anatomic. Joint spaces are well maintained. No abnormal soft tissue calcification. There is periosteal reaction along the lateral aspect of the right distal femoral diaphysis on the single AP view, possibly a osteochondroma. XR/XR knee standing BI IMPRESSION: No acute fractures or dislocations. Possible osteochondroma along the lateral aspect of the right distal diaphysis. Poorly assessed on this single AP view.
== END 2022-08-27 11:14 | disposition home or self-care (01) ==
LOC: HO.HOSX 11:13
PROVIDERS: Visit Provider Physician Assistant
DX: M22.2X1 Patellofemoral disorders, right knee (principal)
CPT/HCPCS: 73560; 73565; 99202

== ENCOUNTER → 2022-10-12 12:52 | Outpatient (BNVA) | payer OTHER, SELFPAY | PROVIDERS: PCP Internal Medicine; Visit Provider Physician Assistant | DX: M22.2X1 Patellofemoral disorders, right knee (principal) | CPT/HCPCS: 99212 ==

== ENCOUNTER 2023-03-11 09:20 | Outpatient (AMB) | payer OTHER, SELFPAY ==
[2023-03-11 09:23] VITALS: BP 118/80; BMI 30.4
--- NOTE | 2023-03-11 09:23 | MHC.PC.OV ---
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 Required: No Accompanied by: Self / Same As Patient Allergies No Known Allergies [No Known Allergies*] Allergy (Verified 03/11/23 09:34) Medication List - Last Reconciled 03/11/23 by Jayne Conteh MD albuterol sulfate 90 mcg/actuation 2 puffs inhalation Q6H PRN fluticasone propionate 50 mcg/actuation 1 spray intranasal DAILY Tobacco use date assessed: 03/11/23 Dental Screening Dental Screen Date: 03/11/23 Did you have a dental visit in the last 12 months?: Yes Did you have a dental problem in the last 6 months where you did not have access to dental care?: No Was dental information given to patient?: Patient has dentist HPI HPI Comments History of Present Illness Details This is a 42-year-old female with mild asthma and right knee patellofemoral arthritis that comes today complaining of occasional dizziness not associated with any ringing in ear. Use rescue inhaler once a month or less. Still has right knee pain that has markedly improved with knee brace but brace broke. Will order labs to rule out all the causes of dizziness. [facility] Medical History (Updated 03/11/23 @ 11:06 by Jayne Conteh MD) ADHD JAYNE positive Anemia Anxiety and depression Back pain Benign tumor Bulging of cervical intervertebral disc Carpal tunnel syndrome Chronic pain [place]'s syndrome Dermatitis Easy bruising Fatty liver GERD (gastroesophageal reflux disease) Hyperparathyroidism Hypertension Hypoglycemia Irritable bowel syndrome with both constipation and diarrhea Left hip pain Left knee pain Liver fibrosis Lumbar pain Major depressive disorder, recurrent, moderate Migraine Mild asthma Morbid obesity due to excess calories Morbid obesity with BMI of 40.0-44.9, adult Morbid obesity with BMI of 45.0-49.9, adult OLYA (obstructive sleep apnea) Pelvic pain Polyarthralgia Pre-diabetes Prolonged Q-T interval on ECG Recurrent umbilical hernia Right knee pain Sleep apnea with use of continuous positive airway pressure (CPAP) Surgical History H/O section H/O laparoscopy H/O umbilical hernia repair History of bilateral tubal ligation History of endometrial ablation History of esophagogastroduodenoscopy (EGD) History of hysteroscopy History of mandibular surgery Hx laparoscopic cholecystectomy Hx of colonoscopy Hx of oral surgery Hx of tonsillectomy Status post sleeve gastrectomy Family History Mother Diabetes HTN (hypertension) Pulmonary edema Maternal Grandmother Cancer Sister Diabetes Father No problems noted. Social History Household Members: Spouse Housing: Apartment Are you a primary animal care supervisor to a significant other at home: No Do you presently have visiting nurse or other home services: No Alcohol intake: never Patient Tobacco Use Status: Former Tobacco user Quit Date: 2011 Tobacco use type: Cigarette e-Cigarette/Vaping Use: Never Used Second Hand Smoke Exposure: No service: No Current occupational status: employed Current occupational exposures/hazards: No Sexual orientation: Straight/Heterosexual Gender identity: Female Cognitive needs: No Hearing needs: No Vision needs: Yes Female Reproductive History Menstrual Age of Menarche: 11 Questionnaire PHQ-9 Over the last 2 weeks, how often have you been bothered by any of the following problems? 1. Little interest or pleasure in doing things: not at all 2. Feeling down, depressed, or hopeless: not at all 3. Trouble falling or staying asleep, or sleeping too much: not at all 4. Feeling tired or having little energy: not at all 5. Poor appetite or overeating: not at all 6. Feeling bad about yourself - or that you are a failure or have let yourself or your family down: not at all 7. Trouble concentrating on things, such as reading the newspaper or watching television: not at all 8. Moving or speaking so slowly that other people could have noticed. Or the opposite - being so fidgety or restless that you have been moving around a lot more than usual: not at all 9. Thoughts that you would be better off or of hurting yourself in some way: not at all Total score: 0 Depression Screening Interpretation: Negative 81368 - PHQ-9 Billing: Yes Source: Developed by Drs. Adrien Rodriguez, Maricel Donell Avalos and colleagues, with an educational tia from [employer]. Thrive Questionnaire Date Thrive assessed: 03/11/23 I am a: Patient What is your living situation today?: I have a steady place to live Within the past 12 months, did the food you bought not last and you didn't have the money to get more?: Never true Within the past 12 months, did you worry whether your food would run out before you got money to buy more?: Never true Do you have trouble paying for medicines?: No Do you have trouble getting transportation to medical appointments?: No Do you have trouble paying your heating and electricity bill?: No Do you have trouble taking care of your child, family member or friend?: No Do you have trouble with day-to-day activities such as bathing, preparing meals, shopping, managing finances, etc.?: No Are you currently unemployed and looking for a job?: No Are you interested in more education?: No Please select the resources that you would like help with: None Currently or been in a relationship where the following occur: no concerns reported AUDIT C Alcohol Use Questionnaire (AUDIT-C) 1. How often do you have a drink containing alcohol?: Never Total Score: 0 ISIDRA-7 AMB Questionnaire ISIDRA-7 Date ISIDRA - 7 assessed: 03/11/23 Feeling nervous, anxious, or on edge: 0 = Not at all Not being able to stop or control worryin = Not at all Worrying too much about different things: 0 = Not at all Trouble relaxin = Not at all Being so restless that it is hard to sit still: 0 = Not at all Becoming easily annoyed or irritable: 0 = Not at all Feeling afraid as if something awful might happen: 0 = Not at all Total ISIDRA-7 score (0-4 normal; 5-9 mild; 10-14 moderate; 15-21 severe): 0 Source: Developed by Drs. Adrien Rodriguez, Donell Hurley and colleagues, with an educational tia from [employer]. ISIDRA-7 Assessment Billing ISIDRA-7 Assessment Tool: ISIDRA-7 Assessment 63727 Review of Systems Const All systems reviewed & are unremarkable except as noted in HPI and below Eyes Reports no additional complaints, Denies change in vision and Denies other visual disturbances ENT Reports dizziness Card Denies chest pain at rest, Denies chest pain with activity, Denies edema, Denies irregular heart rhythm, Denies claudication, Denies dyspnea, Denies dyspnea on exertion, Denies orthopnea, Denies paroxysmal nocturnal dyspnea and Denies slow heart rate Resp Denies cough, Denies dyspnea and Denies dyspnea on exertion GI Denies abdominal pain, Denies change in bowel habits, Denies excessive flatus, Denies nausea and Denies vomiting Denies urinary incontinence, Denies urinary hesitancy and Denies urinary urgency Musc Denies abnormal gait, Denies atrophy, Denies deformity and Denies limited range of motion Skin/Breast Denies bleeding lesions, Denies changing lesions and Denies rash Neuro Denies abnormal gait, Reports dizziness and Denies lack of coordination Physical exam (Primary Care) Vital Signs: Last Vital Signs BP 118/80 03/11/23 09:23 BMI result Body Mass Index 30.4 Tobacco/Smoking Status: Tobacco use Status Tobacco use date assessed 03/11/23 03/11/23 09:30 Patient Tobacco Use Status Former Tobacco user 03/11/23 09:30 Tobacco use type Cigarette 03/11/23 09:30 e-Cigarette/Vaping Use Never Used 03/11/23 09:30 PHQ-9: PHQ-9 Score PHQ-9: Total score 0 03/11/23 09:36 Depression Screening Interpretation: Negative Thrive Assessment: Date of Thrive Assessment Date Thrive assessed 03/11/23 03/11/23 09:30 Currently or been in a relationship where the following occur: no concerns reported Eyes General: appearance normal, both eyes and all related structures Eyelids: Yes eyelids normal Conjunctivae: conjunctivae normal Neck Neck: Yes normal visual inspection and Yes supple Resp Effort & Inspection: normal respiratory effort Auscultation: clear to auscultation bilaterally Cardio Jugular venous distension: no JVD Rate: regular rate Rhythm: regular rhythm Heart sounds: S1 normal heart sound present and S2 normal heart sound present Extrem General: Yes full ROM Assessment and Plan Assessment & Plan (1) Mild asthma: Code(s): J45.909 - Unspecified asthma, uncomplicated Qualifiers: Asthma persistence: persistent Asthma complication type: uncomplicated Qualified Code(s): J45.30 - Mild persistent asthma, uncomplicated Plan: Use rescue inhaler as needed. (2) Patellofemoral syndrome of right knee: Code(s): M22.2X1 - Patellofemoral disorders, right knee Plan: Use knee brace as needed. (3) Dizziness: Code(s): R42 - Dizziness and giddiness Plan: Labs ordered. Orders: Orders Vitamin B12 and Folate Today E53.8 - Deficiency of other specified B group vitamins Comprehensive Met. Panel Today M25.50 - Pain in unspecified joint Vitamin D 25-OH Total Today E55.9 - Vitamin D deficiency, unspecified Complete Blood Count Auto Diff Today D64.9 - Anemia, unspecified, M25.50 - Pain in unspecified joint Medications: New leg brace (Knee Support Brace) As directed 1 ea 0RF M22.2X1 - Patellofemoral disorders, right knee Coding Level of Care Code Est Pt Level 3 (09805) Diagnoses Mild asthma J45.30 Asthma persistence: persistent Asthma complication type: uncomplicated Patellofemoral syndrome of right knee M22.2X1 Dizziness R42 Additional Codes ISIDRA-7 Assessment Billing - ISIDRA-7 Assessment Tool: ISIDRA-7 Assessment 20459 ([id number]) Time Spent (min) 19
== END 2023-03-11 09:48 | disposition home or self-care (01) ==
PROVIDERS: PCP Internal Medicine; Visit Provider Internal Medicine
DX: J45.30 Mild persistent asthma, uncomplicated (principal); M22.2X1 Patellofemoral disorders, right knee; R42 Dizziness and giddiness
CPT/HCPCS: 99213

== ENCOUNTER 2023-03-11 10:35 | Outpatient (REF) | payer OTHER, SELFPAY ==
[2023-03-11 10:55] LABS: MANUAL DIFF FLAG NO
[2023-03-11 11:30] LABS: Basophils Absolute Auto 0.1 X10*3/uL (0.0-0.2); Basophils Percent Auto 0.8 % (0-2); Eosinophils Absolute Auto 0.1 X10*3/uL (0.0-0.4); Eosinophils Percent Auto 1.2 % (0-4); Hemoglobin 15.3 g/dl (12.0-16.0); Imm Gran Abs Auto 0.01 X10*3/uL (0.00-0.03); Imm Gran Pct Auto 0.1 % (0.0-0.4); Lymphocytes Absolute Auto 2.4 X10*3/uL (1.2-4.9); Lymphocytes Percent Auto 31.8 % (20-40); Mean Corpuscular HGB Conc 34.8 g/dl (31.0-35.0); Mean Corpuscular Hemoglobin 31.4 pg (27.0-33.0); Mean Corpuscular Volume 90.3 fL (80.0-98.0); Monocytes Absolute Auto 0.6 X10*3/uL (0.1-1.2); Monocytes Percent Auto 7.2 % (2-11); Neutrophils Absolute Auto 4.5 x10*3/uL (2.0-8.3); Neutrophils Percent Auto 58.9 % (45-73); Platelet Count 319 X10*3/uL (160-400); Red Blood Count 4.87 X10*6/uL (4.20-5.50); Red Cell Distribution Width 12.3 % (11.0-16.0); White Blood Count 7.7 X10*3/uL (4.8-10.8)
[2023-03-11 12:54] LABS: Alanine Aminotransferase 20 U/L (0-31); Albumin Level 4.3 g/dL (3.5-5.0); Alkaline Phosphatase 50 U/L (39-117); Anion Gap 14 (12-20); Aspartate Amino Transferase 22 U/L (5-31); Bilirubin Total 0.5 mg/dL (0.0-1.0); Blood Urea Nitrogen 14 mg/dL (9-16); Calcium 9.6 mg/dL (8.4-10.2); Carbon Dioxide 23 mmol/L (22-29); Chloride 107 mmol/L (96-108); Estimated Glomerular Filt Rate > 60; Glucose Random 79 mg/dL (60-115); Potassium 3.7 mmol/L (3.3-5.1); Sodium 140 mmol/L (135-145); Total Protein 7.2 g/dL (6.5-8.0)
[2023-03-11 12:59] LABS: Vitamin D 25-OH Total 53.2 ng/mL (>30)
[2023-03-11 13:09] LABS: Folate 13.3 ng/mL (> or = 4.0); Vitamin B12 843 pg/mL (200-900)
== END 2023-03-11 10:36 | disposition home or self-care (01) ==
LOC: HO.LAB 10:35
PROVIDERS: PCP Internal Medicine; Visit Provider Internal Medicine
DX: E53.8 Deficiency of other specified B group vitamins (principal); M25.50 Pain in unspecified joint; E55.9 Vitamin D deficiency, unspecified; D64.9 Anemia, unspecified
CPT/HCPCS: 36415; 80053; 82306; 82607; 82746; 85025

== ENCOUNTER 2023-03-16 11:22 | Outpatient (AMB) | payer OTHER, SELFPAY ==
--- NOTE | 2023-03-16 11:25 | MHC.OFFVIS ---
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 No complaints. Last Pap/HPV was negative in 08/02 No previous screening Mammogram done [facility] Medical History ADHD RADHA positive Anemia Anxiety and depression Back pain Benign tumor Bulging of cervical intervertebral disc Carpal tunnel syndrome Chronic pain Corey's syndrome Dermatitis Easy bruising Fatty liver GERD (gastroesophageal reflux disease) Hyperparathyroidism Hypertension Hypoglycemia Irritable bowel syndrome with both constipation and diarrhea Left hip pain Left knee pain Liver fibrosis Lumbar pain Major depressive disorder, recurrent, moderate Migraine Mild asthma Morbid obesity due to excess calories Morbid obesity with BMI of 40.0-44.9, adult Morbid obesity with BMI of 45.0-49.9, adult OLYA (obstructive sleep apnea) Pelvic pain Polyarthralgia Pre-diabetes Prolonged Q-T interval on ECG Recurrent umbilical hernia Right knee pain Sleep apnea with use of continuous positive airway pressure (CPAP) Surgical History H/O section H/O laparoscopy H/O umbilical hernia repair History of bilateral tubal ligation History of endometrial ablation History of esophagogastroduodenoscopy (EGD) History of hysteroscopy History of mandibular surgery Hx laparoscopic cholecystectomy Hx of colonoscopy Hx of oral surgery Hx of tonsillectomy Status post sleeve gastrectomy Family History Mother Diabetes HTN (hypertension) Pulmonary edema Maternal Grandmother Cancer Sister Diabetes Father No problems noted. Social History Household Members: Spouse Housing: Apartment Are you a primary resident care coordinator to a significant other at home: No Do you presently have visiting nurse or other home services: No Alcohol intake: never Patient Tobacco Use Status: Former Tobacco user Quit Date: 2011 Tobacco use type: Cigarette e-Cigarette/Vaping Use: Never Used Second Hand Smoke Exposure: No service: No Current occupational status: employed Current occupational exposures/hazards: No Sexual orientation: Straight/Heterosexual Gender identity: Female Cognitive needs: No Hearing needs: No Vision needs: Yes Female Reproductive History Menstrual Age of Menarche: 11 Duration of menses: 6-7 days control method: permanent sterilization Total pregnancies: 2 Full term: 2 Number of Living Children: 2 Date of last pap smear: 07/25/21 (negative) Review of Systems Const All systems reviewed & are unremarkable except as noted in HPI and below Card Reports as per HPI Resp Reports as per HPI GI Reports as per HPI and Reports no additional complaints Reports as per HPI Physical Exam Vital Signs: Last Vital Signs BP 106/64 03/16/23 11:26 BMI result Body Mass Index 30.4 Const General: cooperative, healthy appearing and comfortable Chest Chest palpation & inspection: normal inspection of the chest and normal palpation of entire chest wall Breast/axilla inspection: normal inspection of the breasts and normal inspection of the axillae Breast/axilla palpation: normal palpation of the breasts, normal palpation of the axillae and no axillary lymphadenopathy Resp Effort & Inspection: normal respiratory effort Auscultation: clear to auscultation bilaterally Percussion: percussion normal Cardio Palpation: normal PMI Rate: regular rate Rhythm: regular rhythm Heart sounds: no murmurs and no rubs Peripheral pulses: Peripheral pulses 2+ throughout GI Inspection: Yes normal to inspection Palpation (GI): Soft to palpation, nontender, no guarding, not rigid and No hepatosplenomegaly present Percussion: Yes normal to percussion Auscultation: normal bowel sounds Rectal Exam - Female: deferred General: Yes bladder normal to palpation External Female Exam: No lesion Speculum Exam - Vagina: normal appearance of the vagina, normal palpation, normal vaginal discharge and not erythematous Speculum Exam - Cervix: normal appearance of the cervix and normal palpation Bimanual exam- vagina & uterus: normal bimanual exam, normal palpation, uterine size normal, bladder normal to palpation, consistency normal and normal palpation Bimanual Exam- Adnexa, other: normal adnexae, no masses and no tenderness Assessment & Plan Assessment & Plan (1) Well woman exam: Code(s): Z01.419 - Encounter for gynecological examination (general) (routine) without abnormal findings Plan: Cotesting not indicated this year. Mammogram ordered. Counseled the patient about the recommended dietary allowance of 1000 mg of Calcium & 600 IU of vitamin D. The patient was instructed to perform monthly self-breast exams and to schedule an annual exam in a year; All questions answered and the patient verbalized understanding. Instructed the patient to schedule annual exam in a year Orders: Orders MM screening mammo BI Today Z12.31 - Encounter for screening mammogram for malignant neoplasm of breast Coding Level of Care Code Est Pt Prev Care 40-64y(44443) Diagnoses Well woman exam Z01.419
[2023-03-16 11:26] VITALS: BP 106/64; BMI 30.4
== END 2023-03-16 11:47 | disposition home or self-care (01) ==
PROVIDERS: Visit Provider Obstetrics & Gynecology
DX: Z01.419 Encounter for gynecological examination (general) (routine) without abnormal findings (principal)
CPT/HCPCS: 99396

== ENCOUNTER → 2023-03-16 11:22 | Outpatient (BNVA) | payer OTHER, SELFPAY | PROVIDERS: Visit Provider Obstetrics & Gynecology ==

== ENCOUNTER 2023-03-30 09:40 | Outpatient (REF) | payer OTHER, SELFPAY ==
--- NOTE | ~2023-03-30 | US_ITS ---
EXAMINATION: US ABDOMEN COMPLETE CLINICAL INFORMATION: Fatty (change of) liver, not elsewhere classified. COMPARISON: US abdomen complete with liver elastography 09/30/2021. Ultrasound abdomen limited 08/13/2021. CT abdomen and pelvis with IV contrast 03/04/2020. MRI abdomen without contrast 07/27/2013. TECHNIQUE: Real-time imaging of the abdominal viscera. Limited visualization due to bowel gas. FINDINGS: PANCREAS: Limited visualization of pancreatic tail and head. Imaged portion of pancreatic body is unremarkable. ABDOMINAL AORTA: Nonaneurysmal. INFERIOR VENA CAVA: Visualized portions are normal. LIVER: Hepatomegaly, 18.8 cm. Diffuse increase in echogenicity of the liver is characteristic of primary hepatocellular disease, possibly due to hepatic steatosis and additionally limits visualization. GALLBLADDER: Surgically absent. COMMON BILE DUCT: Normal in caliber measuring 0.7 cm in diameter. RIGHT KIDNEY: No hydronephrosis. No renal calculi. Renal cortical thickness is normal. Limited visualization. The kidney measures 12.0 cm in maximum dimension. LEFT KIDNEY: No hydronephrosis. No renal calculi. Renal cortical thickness is normal. Limited visualization. The kidney measures 12.2 cm in maximum dimension. SPLEEN: Splenomegaly. The spleen measures 13.9 cm in maximum dimension. FREE FLUID: None. US/US abdomen complete IMPRESSION: Hepatosplenomegaly. Diffuse increase in echogenicity of the liver is characteristic of primary hepatocellular disease, possibly due to hepatic steatosis and additionally limits visualization. Gallbladder is surgically absent.
== END 2023-03-30 09:41 | disposition home or self-care (01) ==
LOC: HO.HMGCX 09:40
PROVIDERS: PCP Internal Medicine; Visit Provider Nurse Practitioner
DX: K76.0 Fatty (change of) liver, not elsewhere classified (principal)
CPT/HCPCS: 76700

== ENCOUNTER 2023-03-31 10:45 | Outpatient (AMB) | payer OTHER, SELFPAY ==
--- NOTE | 2023-03-31 10:56 | A.OFFVIS_ITS ---
Intake Vital Signs 03/31/23 10:58 Height 5 ft 1 in Weight 163 lb 2.273 oz BMI 30.8 BP 116/71 Blood Pressure Location Lt brachial Position Sitting Pulse 67 Intake Visit Reasons: Follow up Liver Intake Note: Patient presents to in office visit today in 6 months follow up of GERD and hepatic steatosis. CC: Pt reports LUQ abdominal pain, she is unsure if its related to umbilical hernia she had repaired. She also states having some trouble with her hemorrhoids and occasional constipation and diarrhea. She also reports having more heartburn lately. Denies other GI symptoms today. 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 05/2021 ferritin is elevated at 151, GGT is 101, alpha f etoprotein is 4.0, autoimmune workup is completely negative.US WITH ELASTOGRAPHY (ordered by bariatrics)? 09/30/21 (F3) median stiffness is 2.3 m/s 2013? LIVER BIOPSY A.? CHRONIC CHOLECYSTITIS. CHOLELITHIASIS. B.? LIVER BIOPSY WITH MODERATE MICROVESICULAR FATTY CHANGE, MILD ACUTE CHOLANGITIS, AND FOCAL MILD ACUTE PERIPORTAL HEPATITIS.? THERE IS NO INCREASE IN PORTAL TRACT FIBROUS TISSUE AND NO EVIDENCE OF CHOLESTASIS.? A SPECIAL STAIN FOR IRON IS NEGATIVE. IMPRESSION:? LIVER BIOPSY WITH THE CHANGES OF MILD ACUTE CHOLANGITIS AND ASSOCIATED ?FOCAL MILD ACUTE PERIPORTAL HEPATITIS CONSISTENT WITH ASCENDING? CHOLANGITIS SECONDARY TO PARTIAL EXTRAHEPATIC LARGE BILE DUCTOBSTRUCTION. 05/23/21 Ferritin 151 H Total Bilirubin 0.4 GGT 101 H AST 42 H ALT 71 H Alkaline Phosphatase 109 Alpha Fetoprotein 4.0 RADHA Screen NEGATIVE Anti-Mitochondrial Ab NEGATIVE Anti-Smooth Muscle Ab <20 US WITH ELASTOGRAPHY (ordered by bariatrics)? 09/30/21 (F3) Shear wave liver elastography median stiffness is 2.3 m/s (reference: normal median stiffness is 1.3 m/s or less). IQR/median stiffness to assess sampling precision is 0.06 (reference: good quality data set is IQR/median stiffness of 0.15 or less). GALLBLADDER: Surgically removed? COMMON BILE DUCT: Normal in caliber measuring 0.6 cm in diameter. RIGHT KIDNEY: Normal. No hydronephrosis. No renal calculi or focal parenchymal lesions. The kidney measures 12 cm in maximum dimension. LEFT KIDNEY: Normal. No hydronephrosis. No renal calculi or focal parenchymal lesions. The kidney measures 12.5 cm in maximum dimension. SPLEEN: Upper normal in size. The spleen measures 13 cm in maximum dimension. There is an echogenic area in the spleen with acoustic shadowing probably representing a calcification. FREE FLUID: None.? US/US abdomen comp w elastography IMPRESSION: 1. Impression enlarged echogenic liver. Upper normal-size spleen. ? 2. Liver elastography:? Adequate liver s ampling.? Increased liver stiffness suggestive of compensated advanced chronic liver disease ?Code(s): K76.0 - Fatty (change of) liver, not elsewhere classified ?Plan: She has lost 26 lbs!! She does exercise at home and follows the wt loss program with protein shakes and meal at supper. She is very worried about the liver elastography. She wants to know if it is r/t her fluid retention in her feet and legs or her episodic diarrhea. But the diarrhea is not all the time and she does not think she needs any further tx.? This is not related to the liver, more likely it is related to venous insufficiency and lack of sodium tolerance.? The diarrhea could very well be linked to the artificial sugars used the protein shakes.? I explained that she would help fluid or ascites in the abdomen of her liver with a problem 1st and she does not have this.? She is also educated about venous insufficiency. I tell her that liver biopsy is the gold standard for diagnosis, but we do not do this to everyone any more because of the risks and instead we rely on elastography along with blood work.? However, elastography can have a lot of room for in accurate estimates of the actual liver function and it is also inhibited when someone is have year.? I would rather see what her lab work is showing especially since she has lost weight, and I reassured her that her liver should improve with weight loss and we will continue to watch carefully.? I also reviewed all of the conditions we have already ruled out as she forgot some of the initial Education that was provided.? She admits that she has ?trouble with my memory. ? She saw Gen surgery and they felt she should lose wt first and they put her in touch with the bariatric dept.? We had referred her for her umbilical hernia th at was concerning her.? he continues on the omeprazole once a day which continues to help her with her GERD.? She tried to stop it but found she still needed it, she likely needs greater weight loss before this will have an impact on this particular chronic problem.? I will renew her omeprazole as she takes 20 mg once a day.? She stopped drinking coffee which did help, I educated the copies good the liver but bad that the stomach but if it bothered her a lot she should continue to abstain.? She is taking milk thistle and omega-3 supplement which is fine in may be helpful to liver and certainly is harmful. ROV 6 weeks to eval tests and hopefully reassure her that her liver functions are improving with her weight loss.? (2) Irritable bowel syndrome with diarrh ea: ?Code(s): K58.0 - Irritable bowel syndrome with diarrhea (3) GERD (gastroesophageal reflux diseas e): ?Code(s): K21.9 - Gastro-esophageal reflux disease without esophagitis ?Qualifiers: ?Esophagitis presence:?without esophagitis? Qualified Code(s):?K21.9 - Gastro-esophageal reflux disease without esophagitis (4) Bile salt-induced diarrhea: ?Code(s): K90.89 - Other intestinal malabsorption ? ? ? Orders: Orders Alpha FetoproteinA Today K76.0 - Fatty (m[place] nge of) liver, not elsewhere classif ied ? Liver Panel Today K76.0 - Fatty (m[place] nge of) liver, not elsewhere classif ied ? Medications: Refilled omeprazole 20 mg? PO QAM 30 days 30 caps 6RF K21.9 - Gastro-eso phageal reflux dis ease without esoph agitis ? THE LABS: Laboratory Tests 08/22/21 03/11/23 08:12 10:53 Estimated GFR > 60 Hemoglobin A1c % 5.6 Total Bilirubin 0.5 AST 22 ALT 20 Alkaline Phosphata se 50 ? TODAY'S VISIT She has been lost to follow up since 09/2021. She has been losing weight as she is s/p gastric sleeve and has lost 100 lbs!! She has an US ordered by Dr. Simpson but the read is not ready yet. She still has some IBS but is controlling this well with saline enemas. She is having trouble with roids. She feels like the roids bulge into my vagina but this sounds more like a prolapse. Had scope 2018 with TA so due for repeat colonoscopy. Her asthma is well controlled she denies any cardiac problems. There are no prior problems with anesthesia or sedation. There are no infectious disease problems. Return office visit in 6 months for her CONNOR and follow-up on her hemorrhoids. I will also see her after the colonoscopy. Or [facility] Medical History Liver fibrosis Sleep apnea with use of continuous positive airway pressure (CPAP) Prolonged Q-T interval on ECG Chronic pain Fatty liver Migraine GERD (gastroesophageal reflux disease) Anemia Anxiety and depression Hypertension Morbid obesity with BMI of 40.0-44.9, adult Hyperparathyroidism Major depressive disorder, recurrent, moderate Morbid obesity with BMI of 45.0-49.9, adult Recurrent umbilical hernia Dermatitis Morbid obesity due to excess calories Left knee pain Right knee pain Left hip pain [place]'s syndrome Benign tumor Easy bruising Carpal tunnel syndrome Mild asthma Lumbar pain Bulging of cervical intervertebral disc RADHA positive Irritable bowel syndrome with both constipation and diarrhea Pre-diabetes Polyarthralgia Pelvic pain OLYA (obstructive sleep apnea) ADHD Back pain Hypoglycemia Surgical History Status post sleeve gastrectomy Hx of colonoscopy History of esophagogastroduodenoscopy (EGD) Hx of oral surgery History of endometrial ablation H/O umbilical hernia repair History of mandibular surgery History of hysteroscopy History of bilateral tubal ligation H/O section Hx laparoscopic cholecystectomy Hx of tonsillectomy H/O laparoscopy Family History Mother Diabetes HTN (hypertension) Pulmonary edema Maternal Grandmother Cancer Sister Diabetes Father No problems noted. Social History Household Members: Spouse Housing: Apartment Are you a primary home care attendant to a significant other at home: No Do you presently have visiting nurse or other home services: No Alcohol intake: never Patient Tobacco Use Status: Former Tobacco user Quit Date: 2011 Tobacco use type: Cigarette e-Cigarette/Vaping Use: Never Used Second Hand Smoke Exposure: No service: No Current occupational status: employed Current occupational exposures/hazards: No Sexual orientation: Straight/Heterosexual Gender identity: Female Cognitive needs: No Hearing needs: No Vision needs: Yes Female Reproductive History Menstrual Age of Menarche: 11 Review of Systems Const Denies fatigue, Denies fever(s), Denies night sweats, Denies poor appetite and Denies weight loss Eyes Details: glasses Reports requires corrective lenses ENT Reports Normal hearing present, Denies dental pain, Denies dysphagia, Denies hearing loss, Denies mouth pain, Denies odynophagia, Denies throat swelling, Denies tongue swelling and Reports other (Dentition adequate) Card Reports no additional complaints Resp Reports no additional complaints GI Denies abdominal pain, Denies melena, Denies bloating, Reports hematochezia, Reports constipation, Denies GI cramping, Denies dysphagia, Denies excessive flatus, Denies early satiety, Denies heartburn, Reports diarrhea, Denies nausea, Denies odynophagia, Denies vomiting and Denies hematemesis Skin/Breast Denies pruritus, Denies lesions, Denies rash and Denies jaundice Neuro Reports Normal hearing present and Denies Abnormal speech present Endo Denies fatigue Aller/Immun Denies throat swelling and Denies tongue swelling Physical Exam Vital Signs: Last Vital Signs Pulse 67 03/31/23 10:58 BP 116/71 03/31/23 10:58 BMI result Body Mass Index 30.8 Const General: cooperative, no acute distress, well developed and well groomed Nutritional Appearance: well nourished and obese Orientation/consciousness: oriented to person, oriented to place and oriented to time Limitations: No language barrier HEENT Head: Yes normocephalic and Yes atraumatic Eyes General: appearance normal, both eyes and all related structures Pupils: Equal, round and reactive pupils present Neck Neck: Yes normal visual inspection and Yes no lymphadenopathy Thyroid: Thyroid normal Resp Effort & Inspection: normal respiratory effort and able to speak in complete sentences Auscultation: clear to auscultation bilaterally Cardio Rate: regular rate Rhythm: regular rhythm Heart sounds: Normal, physiologic split S2 sound present Peripheral pulses: radial pulses present and posterior tibial pulses present GI Inspection: No distended, No Abdominal panniculus present and Yes obesity Palpation (GI): Soft to palpation, nontender, no guarding, not rigid and No hepatosplenomegaly present Percussion: Yes normal to percussion Auscultation: normal bowel sounds Rectal Exam - Female: deferred Skin General skin exam: no rashes or lesions noted, turgor normal, skin not dry, no jaundice, No spider nevi and no striae Rashes: no rashes Nails: normal Neuro General: oriented to person, oriented to place and oriented to time Cranial nerves: Yes Equal, round and reactive pupils present and Yes Normal hearing present Speech: No Abnormal speech present Extrem General: Yes normal to inspection, No clubbing, No cyanosis and No edema Psych Appearance: grossly normal and well kempt Mental Status: mental status grossly normal Speech and movement: Normal speech and movement present Affect: normal affect Attitude: cooperative Thought process: Normal thought process present and not confabulating Thought content: Normal thought content present Insight: Limited insight present (Psych) Judgement: Limited judgement present (Psych) Assessment & Plan Assessment & Plan (1) Pre-op examination: Code(s): Z01.818 - Encounter for other preprocedural examination Plan: She has been lost to follow up since 09/2021. She has been losing weight as she is s/p gastric sleeve and has lost 100 lbs!! She has an US ordered by Dr. Simpson but the read is not ready yet. She still has some IBS but is controlling this well with saline enemas. She is having trouble with roids. She feels like the roids bulge into my vagina but this sounds more like a prolapse. Had scope 2018 with TA so due for repeat colonoscopy. Her asthma is well controlled she denies any cardiac problems. There are no prior problems with anesthesia or sedation. There are no infectious disease problems. Return office visit in 6 months for her CONNOR and follow-up on her hemorrhoids. I will also see her after the colonoscopy. (2) Tubular adenoma of colon: Comment: 2018=TA Code(s): D12.6 - Benign neoplasm of colon, unspecified (3) Hepatic steatosis: Comment: 02/2020 ast/alt 56/78 alk phos normal, ast/alt 56/78 neg mitochondrial ab, neg HEp A, B and C, 05/2021 ferritin is elevated at 151, GGT is 101, alpha fetoprotein is 4.0, autoimmune workup is completely negative.US WITH ELASTOGRAPHY (ordered by bariatrics) 09/30/21 (F3) median stiffness is 2.3 m/s 2014 LIVER BIOPSY A. CHRONIC CHOLECYSTITIS. CHOLELITHIASIS. B. LIVER BIOPSY WITH MODERATE MICROVESICULAR FATTY CHANGE, MILD ACUTE CHOLANGITIS, AND FOCAL MILD ACUTE PERIPORTAL HEPATITIS. THERE IS NO INCREASE IN PORTAL TRACT FIBROUS TISSUE AND NO EVIDENCE OF CHOLESTASIS. A SPECIAL STAIN FOR IRON IS NEGATIVE. IMPRESSION: LIVER BIOPSY WITH THE CHANGES OF MILD ACUTE CHOLANGITIS AND ASSOCIATED FOCAL MILD ACUTE PERIPORTAL HEPATITIS CONSISTENT WITH ASCENDING CHOLANGITIS SECONDARY TO PARTIAL EXTRAHEPATIC LARGE BILE DUCTOBSTRUCTION. 05/23/21 Ferritin 151 H Total Bilirubin 0.4 GGT 101 H AST 42 H ALT 71 H Alkaline Phosphatase 109 Alpha Fetoprotein 4.0 RADHA Screen NEGATIVE Anti-Mitochondrial Ab NEGATIVE Anti-Smooth Muscle Ab <20 US WITH ELASTOGRAPHY (ordered by bariatrics) 09/30/21 (F3) CURRENT LABS 08/22/21 03/11/23 08:12 10:53 Estimated GFR > 60 Hemoglobin A1c % 5.6 Total Bilirubin 0.5 AST 22 ALT 20 Alkaline Phosphatase 50 US WITH ELASTOGRAPHY (ordered by bariatrics) 09/30/21 (F3) US OF THE ABD 03/31/23 IMPRESSION: Hepatosplenomegaly. Diffuse increase in echogenicity of the liver is characteristic of primary hepatocellular disease, possibly due to hepatic steatosis and additionally limits visualization. Gallbladder is surgically absent. Dictated By: Carolyn Ruano MD Signed By: <Electronically signed by Carolyn Ruano MD in [place]> 03/31/23 Code(s): K76.0 - Fatty (change of) liver, not elsewhere classified Orders: Orders Colonoscopy - GI Use Only 03/31/23 Z01.818 - Encounter for other preprocedural examination, D12.6 - Benign neoplasm of colon, unspecified Medications: New peg 3350-electrolytes 236-22.74-6.74 -5.86 gram (Golytely) until fecal effluent is clear; do not exceed a total volume of 2,000 mL 240 mL PO Q10M 4,000 mL 0RF 1 day Z12.11 - Encounter for screening for malignant neoplasm of colon Coding Level of Care Code Est Pt Level 4 (22781) Diagnoses Pre-op examination Z01.818 Tubular adenoma of colon D12.6 Hepatic steatosis K76.0
[2023-03-31 10:58] VITALS: BP 116/71; PULSE 67; BMI 30.8
== END 2023-03-31 11:56 | disposition home or self-care (01) ==
PROVIDERS: PCP Internal Medicine; Visit Provider Nurse Practitioner
DX: Z01.818 Encounter for other preprocedural examination (principal); D12.6 Benign neoplasm of colon, unspecified; K76.0 Fatty (change of) liver, not elsewhere classified
CPT/HCPCS: 99214

== ENCOUNTER → 2023-03-31 10:45 | Outpatient (BNVA) | payer OTHER, SELFPAY | PROVIDERS: PCP Internal Medicine; Visit Provider Nurse Practitioner | DX: Z01.818 Encounter for other preprocedural examination (principal); K76.0 Fatty (change of) liver, not elsewhere classified; D12.6 Benign neoplasm of colon, unspecified | CPT/HCPCS: 99212 ==

== ENCOUNTER → 2023-04-14 11:30 | Outpatient (BNV) | payer OTHER, SELFPAY | PROVIDERS: PCP Internal Medicine; Visit Provider Radiology Diagnostic Radiology | DX: Z12.31 Encounter for screening mammogram for malignant neoplasm of breast (principal) | CPT/HCPCS: 77063; 77067 ==

== ENCOUNTER 2023-04-14 11:31 | Outpatient (REF) | payer OTHER, SELFPAY ==
--- NOTE | ~2023-04-14 | MM_ITS ---
EXAMINATION: MM SCREENING DIGITAL BREAST TOMOSYNTHESIS, BILATERAL CLINICAL INFORMATION: Screening. Asymptomatic. COMPARISON: Mammography: There are no prior mammograms for comparison. TECHNIQUE: Digital breast tomosynthesis is performed in both the craniocaudal and mediolateral oblique views along with computer-aided detection (CAD). Synthesized 2D images are generated from the tomosynthesis. FINDINGS: The breasts are heterogeneously dense, which may obscure small masses (ACR BI-RADS breast composition Category c). There are no significant masses, abnormal calcifications, or other abnormalities. MM/MM tomosynthesis screening BI IMPRESSION: No mammographic evidence of malignancy. ASSESSMENT: BI-RADS BI-RADS 1 - Negative RECOMMENDATION: Routine annual mammography screening. 1 year F/U This examination should not preclude the clinical evaluation of a suspicious palpable abnormality. This patient's information was entered into a reminder system with a target due date for their next mammogram.
== END 2023-04-14 11:32 | disposition home or self-care (01) ==
LOC: HO.MAMMO 11:31
PROVIDERS: PCP Internal Medicine; Visit Provider Obstetrics & Gynecology
DX: Z12.31 Encounter for screening mammogram for malignant neoplasm of breast (principal)
CPT/HCPCS: 77063; 77067

== ENCOUNTER 2023-07-21 08:34 | Outpatient (AMB) | payer OTHER, SELFPAY ==
--- NOTE | 2023-07-21 08:39 | A.OFFPC_ITS ---
Vital Signs 07/21/23 08:41 Height 5 ft 1 in Weight 166 lb 8 oz BMI 31.5 BP 130/60 Blood Pressure Location Lt brachial Position Sitting Pulse 69 Pulse Source Pulse Oximeter Pulse Oximetry (%) 97 Oxygen Delivery Method Room Air Intake Visit Reasons: Annual Exam Intake Note: Patient is here today for a physical. 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 per policy Accompanied by: Self / Same As Patient Allergies No Known Allergies [No Known Allergies*] Allergy (Verified 07/21/23 09:01) Medication List - Last Reconciled 07/21/23 by Jayne Conteh MD albuterol sulfate 90 mcg/actuation 2 puffs inhalation Q6H PRN fluticasone propionate 50 mcg/actuation 1 spray intranasal DAILY leg brace (Knee Support Brace) As directed Tobacco use date assessed: 07/21/23 Dental Screening Dental Screen Date: 07/21/23 Did you have a dental visit in the last 12 months?: Yes Did you have a dental problem in the last 6 months where you did not have access to dental care?: No Was dental information given to patient?: Patient has dentist [facility] Medical History (Updated 07/21/23 @ 09:17 by Jayne Conteh MD) Pre-op examination UTI (urinary tract infection) Dyspnea Equivocal stress test Depression with anxiety Supraclavicular mass Perineal ulcer Liver fibrosis Sleep apnea with use of continuous positive airway pressure (CPAP) Prolonged Q-T interval on ECG Chronic pain Fatty liver Migraine GERD (gastroesophageal reflux disease) Anemia Anxiety and depression Hypertension Morbid obesity with BMI of 40.0-44.9, adult Hyperparathyroidism Major depressive disorder, recurrent, moderate Morbid obesity with BMI of 45.0-49.9, adult Recurrent umbilical hernia Dermatitis Morbid obesity due to excess calories Left knee pain Right knee pain Left hip pain Corey's syndrome Benign tumor Easy bruising Carpal tunnel syndrome Mild asthma Lumbar pain Bulging of cervical intervertebral disc JAYNE positive Irritable bowel syndrome with both constipation and diarrhea Pre-diabetes Polyarthralgia Pelvic pain OLYA (obstructive sleep apnea) ADHD Back pain Hypoglycemia Surgical History (Updated 07/21/23 @ 09:17 by Jayne Conteh MD) Status post surgery Status post sleeve gastrectomy Hx of colonoscopy History of esophagogastroduodenoscopy (EGD) Hx of oral surgery History of endometrial ablation H/O umbilical hernia repair History of mandibular surgery History of hysteroscopy History of bilateral tubal ligation H/O section Hx laparoscopic cholecystectomy Hx of tonsillectomy H/O laparoscopy Family History Mother Diabetes HTN (hypertension) Pulmonary edema Maternal Grandmother Cancer Sister Diabetes Father No problems noted. Social History Household Members: Spouse Housing: Apartment Are you a primary foster care therapist to a significant other at home: No Do you presently have visiting nurse or other home services: No Alcohol intake: never Patient Tobacco Use Status: Former Tobacco user Quit Date: 2011 Tobacco use type: Cigarette e-Cigarette/Vaping Use: Never Used Second Hand Smoke Exposure: Yes service: No Current occupational status: employed Current occupational exposures/hazards: No Sexual orientation: Straight/Heterosexual Gender identity: Female Cognitive needs: No Hearing needs: No Vision needs: Yes (glasses) Female Reproductive History Menstrual Age of Menarche: 11 Questionnaire PHQ-9 Over the last 2 weeks, how often have you been bothered by any of the following problems? 1. Little interest or pleasure in doing things: not at all 2. Feeling down, depressed, or hopeless: not at all 3. Trouble falling or staying asleep, or sleeping too much: not at all 4. Feeling tired or having little energy: not at all 5. Poor appetite or overeating: not at all 6. Feeling bad about yourself - or that you are a failure or have let yourself or your family down: not at all 7. Trouble concentrating on things, such as reading the newspaper or watching television: not at all 8. Moving or speaking so slowly that other people could have noticed. Or the opposite - being so fidgety or restless that you have been moving around a lot more than usual: not at all 9. Thoughts that you would be better off or of hurting yourself in some way: not at all Total score: 0 Depression Screening Interpretation: Negative Depression Screening Done: Yes 44207 - PHQ-9 Billing: Yes Source: Developed by Drs. Adrien Rodriguez, Maricel Chris, Donell Carey and colleagues, with an educational tia from [employer]. Thrive Questionnaire Date Thrive assessed: 07/21/23 I am a: Patient What is your living situation today?: I have a steady place to live Within the past 12 months, did the food you bought not last and you didn't have the money to get more?: Never true Within the past 12 months, did you worry whether your food would run out before you got money to buy more?: Never true Do you have trouble paying for medicines?: No Do you have trouble getting transportation to medical appointments?: No Do you have trouble paying your heating and electricity bill?: No Do you have trouble taking care of your child, family member or friend?: No Do you have trouble with day-to-day activities such as bathing, preparing meals, shopping, managing finances, etc.?: No Are you currently unemployed and looking for a job?: No Are you interested in more education?: No Currently or been in a relationship where the following occur: no concerns reported AUDIT C Alcohol Use Questionnaire (AUDIT-C) 1. How often do you have a drink containing alcohol?: Never Total Score: 0 Score Reviewed/Action Taken: No ISIDRA-7 AMB Questionnaire ISIDRA-7 Date ISIDRA - 7 assessed: 07/21/23 Feeling nervous, anxious, or on edge: 0 = Not at all Not being able to stop or control worryin = Not at all Worrying too much about different things: 0 = Not at all Trouble relaxin = Not at all Being so restless that it is hard to sit still: 0 = Not at all Becoming easily annoyed or irritable: 0 = Not at all Feeling afraid as if something awful might happen: 0 = Not at all Total ISIDRA-7 score (0-4 normal; 5-9 mild; 10-14 moderate; 15-21 severe): 0 Source: Developed by Drs. Adrien Rodriguez, Maricel Chris, Donell Carey and colleagues, with an educational tia from [employer]. ISIDRA-7 Assessment Billing ISIDRA-7 Assessment Tool: ISIDRA-7 Assessment 42339 Review of Systems Const All systems reviewed & are unremarkable except as noted in HPI and below Eyes Reports no additional complaints, Denies change in vision and Denies other visual disturbances Card Denies chest pain at rest, Denies chest pain with activity, Denies edema, Denies irregular heart rhythm, Denies claudication, Denies dyspnea, Denies dyspnea on exertion, Denies orthopnea, Denies paroxysmal nocturnal dyspnea and Denies slow heart rate Resp Denies cough, Denies dyspnea and Denies dyspnea on exertion GI Denies abdominal pain, Denies change in bowel habits, Denies excessive flatus, Denies nausea and Denies vomiting Denies urinary incontinence, Denies urinary hesitancy and Denies urinary urgency Musc Denies abnormal gait, Denies atrophy, Denies deformity and Denies limited range of motion Skin/Breast Denies bleeding lesions, Denies changing lesions and Denies rash Neuro Denies abnormal gait, Denies behavioral changes, Denies confusion and Denies lack of coordination Psych Denies behavioral changes and Denies confusion Physical exam (Primary Care) Vital Signs: Last Vital Signs Pulse 69 07/21/23 08:41 BP 130/60 07/21/23 08:41 Pulse Ox 97 07/21/23 08:41 Oxygen Delivery Method Room Air 07/21/23 08:41 BMI result Body Mass Index 31.5 Tobacco/Smoking Status: Tobacco use Status Tobacco use date assessed 07/21/23 07/21/23 08:46 Patient Tobacco Use Status Former Tobacco user 07/21/23 08:39 Tobacco use type Cigarette 07/21/23 08:39 e-Cigarette/Vaping Use Never Used 07/21/23 08:39 PHQ-9: PHQ-9 Score PHQ-9: Total score 0 07/21/23 08:46 Depression Screening Interpretation: Negative Thrive Assessment: Date of Thrive Assessment Date Thrive assessed 07/21/23 07/21/23 08:46 Currently or been in a relationship where the following occur: no concerns reported Const General: No confusion Orientation/consciousness: patient oriented x3 and No confusion HENMT Head: Yes normal to inspection, Yes normocephalic and Yes atraumatic Ears: external ears normal Eyes General: appearance normal, both eyes and all related structures Eyelids: Yes eyelids normal Conjunctivae: conjunctivae normal Neck Neck: Yes normal visual inspection and Yes supple Resp Effort & Inspection: normal respiratory effort Auscultation: clear to auscultation bilaterally Cardio Jugular venous distension: no JVD Rate: regular rate Rhythm: regular rhythm Heart sounds: S1 normal heart sound present and S2 normal heart sound present GI Inspection: Yes normal to inspection Palpation (GI): Soft to palpation and nontender Auscultation: normal bowel sounds Skin General skin exam: no rashes or lesions noted Neuro General: patient oriented x3, no focal motor deficits and No confusion Extrem General: Yes full ROM Psych Appearance: grossly normal Assessment and Plan Assessment & Plan (1) Physical exam: Code(s): Z00.00 - Encounter for general adult medical examination without abnormal findings Plan: Repeat in a year. Orders: Orders Lipid Panel Today Z00.00 - Encounter for general adult medical examination without abnormal findings Comprehensive [place]. Panel Fast Today Z00.00 - Encounter for general adult medical examination without abnormal findings Coding Level of Care Code Est Pt Prev Care 40-64y(24821) Diagnoses Physical exam Z00.00 Additional Codes ISIDRA-7 Assessment Billing - ISIDRA-7 Assessment Tool: ISIDRA-7 Assessment 81668 ([id number]) Time Spent (min) 31
[2023-07-21 08:41] VITALS: BP 130/60; PULSE 69; O2SAT 97; BMI 31.5
== END 2023-07-21 09:12 | disposition home or self-care (01) ==
PROVIDERS: PCP Internal Medicine; Visit Provider Internal Medicine
DX: Z00.00 Encounter for general adult medical examination without abnormal findings (principal)
CPT/HCPCS: 99396

== ENCOUNTER 2023-09-29 10:44 | Outpatient (AMB) | payer OTHER, SELFPAY ==
--- NOTE | 2023-09-29 10:52 | A.OFFVIS_ITS ---
Intake Vital Signs 09/29/23 10:59 Height 5 ft 1 in Weight 164 lb 14.492 oz BMI 31.2 BP 109/64 Blood Pressure Location Lt brachial Position Sitting Pulse 70 Intake Visit Reasons: 6 month follow up RED Intake Note: Tamra returns to in office 6 months follow up of RED. CC: Patient reports having 1-2 BMs daily. She c/o heartburn and occasional chest pressure. Denies other GI symptoms. 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 She has been losing weight as she is s/p gastric sleeve and has lost 100 lbs!! She has an US ordered by Dr. Simpson but the read is not ready yet. She still has some IBS but is controlling this well with saline enemas. She is having trouble with roids. She feels like the roids bulge into my vagina but this sounds more like a prolapse. Had scope 2018 with TA so due for repeat colonoscopy. Her asthma is well controlled she denies any cardiac problems. There are no prior problems with anesthesia or sedation. There are no infectious disease problems. Return office visit in 6 months for her RED and follow-up on her hemorrhoids. I will also see her after the colonoscopy. (2) Tubular adenoma of colon: Comment: 2018=TA Code(s): D12.6 - Benign neoplasm of colon, unspecified (3) Hepatic steatosis: Comment: 02/2020 ast/alt 56/78 alk phos normal, as t/alt 56/78 neg mitochondrial ab, neg HEp A, B and C, 05/2021 ferritin is elevated at 151, GGT is 101, alpha fetoprotein is 4.0, autoimmune workup is completely negative.US WITH ELASTOGRAPHY (ordered by bariatrics) 09/30/21 (F3) median stiffness is 2.3 m/s 2013 LIVER BIOPSY A. CHRONIC CHOLECYSTITIS. CHOLELITHIASIS. B. LIVER BIOPSY WITH MODERATE MICROVESICULAR FATTY CHANGE, MILD ACUTE CHOLANGITIS, AND FOCAL MILD ACUTE PERIPORTAL HEPATITIS. THERE IS NO INCREASE IN PORTAL TRACT FIBROUS TISSUE AND NO EVIDENCE OF CHOLESTASIS. A SPECIAL STAIN FOR IRON IS NEGATIVE. IMPRESSION: LIVER BIOPSY WITH THE CHANGES OF MILD ACUTE CHOLANGITIS AND ASSOCIATED FOCAL MILD ACUTE PERIPORTAL HEPATITIS CONSISTENT WITH ASCENDING CHOLANGITIS SECONDARY TO PARTIAL EXTRAHEPATIC LARGE BILE DUCTOBSTRUCTION. 05/23/21 Ferritin 151 H Total Bilirubin 0.4 GGT 101 H AST 42 H ALT 71 H Alkaline Phosphatase 109 Alpha Fetoprotein 4.0 RADHA Screen NEGATIVE Anti-Mitochondrial Ab NEGATIVE Anti-Smooth Muscle Ab <20 US WITH ELASTOGRAPHY (ordered by bariatrics) 09/30/21 (F3) CURRENT LABS 08/22/2207/31/23 08:1210:53 Estimated GFR > 60 Hemoglobin A1c % 5.6 Total Bilirubin 0.5 AST 22 ALT 20 Alkaline Phosphatase 50 US WITH ELASTOGRAPHY (ordered by bariatrics) 09/30/21 (F3) US OF THE ABD 03/31/23 IMPRESSION: Hepatosplenomegaly. Diffuse increase in echogenicity of the liver is characteristic of primary hepatocellular disease, possibly due to hepatic steatosis and additionally limits visualization. Gallbladder is surgically absent. Dictated By: Carolyn Ruano MD Signed By: <Electronically signed by Carolyn Ruano MD in OV> 03/31/23 Code(s): K76.0 - Fatty (change of) liver, not elsewhere classified Orders: Orders Colonoscopy - GI U se Only 03/31/23 Z01.818 - Encounte r for other prepro cedural examinatio n, D12.6 - Benign neoplasm of colon, unspecified Medications: New peg 3350-electroly rodrigo 236-22.74-6.74 -5.86 gram (Golyt mikhail) until feca l effluent is miguelangel r; do not exceed a total volume of 2 ,000 mL 240 mL PO Q10M 4,0 00 mL 0RF 1 day Z12.11 - Encounter for screening for malignant neoplas m of colon COLONOSCOPY BIOPSY ?CORRESPONDENCE On 04/20/23 @ 11:26 Jeaneth Low Wrote To Tamra Ventura In that case he will have to ask your primary care provider for this referral. On 04/16/23 @ 14:36 Tamra Ventura (Regarding Self / Same As Patient) Wrote To Devante I would like a referral to a Idea Man, please. On 04/14/23 @ 09:29 Jeaneth Low Wrote To Tamra Ventura Umm.....I AM the specialist, are you looking for a second opinion? On 04/13/23 @ 19:45 Tamra Ventura (Regarding Self / Same As Patient) Wrote To DevanteOctober Sulaiman October, I am worried about my enlarged liver . Could I please get a referral for a specialist please . On 06/14/23 @ 13:45 Uma Pedroza Wrote To Corin Case Uma Pedroza completed item. On 06/14/23 @ 13:45 Uma Pedroza Wrote To Corin Case Uma Pedroza removed from item. On 06/14/23 @ 09:26 Uma Pedroza Wrote To Uma Pedroza (2) procedure clxd and ov. will reach out on a later date to r/s On 06/14/23 @ 09:16 Rani Ventura Wrote To Uma Pedroza (2) Pt is stating she can only do Wednesday if you can please re-jt. colonoscopy, please call pt @ [phone] TODAY'S VISIT She thinks that she has the colonoscopy next week, I don't see this in the computer, so I will have her see the schedulers when she leaves. She is agreeable to having more tests for her red. She is also seeing a provider for a second opinion about tjhis. SHe takes milk thistle and she continues to have wt loss after her bariatric surgery. Her IBS has been well controlled recently. [facility] Medical History Physical exam Well woman exam Sexual dysfunction Liver fibrosis Abnormal uterine bleeding (AUB) Spotting Urinary frequency Incisional pain Left knee pain Right knee pain Lumbar pain Well woman exam Periumbilical abdominal pain Vulvovaginal candidiasis Ovarian cyst (~03/2020) Pre-op examination UTI (urinary tract infection) Dyspnea Equivocal stress test Depression with anxiety Supraclavicular mass Perineal ulcer Sleep apnea with use of continuous positive airway pressure (CPAP) Prolonged Q-T interval on ECG Chronic pain Migraine GERD (gastroesophageal reflux disease) Anemia Anxiety and depression Hypertension Morbid obesity with BMI of 40.0-44.9, adult Hyperparathyroidism Major depressive disorder, recurrent, moderate Morbid obesity with BMI of 45.0-49.9, adult Recurrent umbilical hernia Dermatitis Morbid obesity due to excess calories Left hip pain Corey's syndrome Benign tumor Easy bruising Carpal tunnel syndrome Mild asthma Bulging of cervical intervertebral disc RADHA positive Irritable bowel syndrome with both constipation and diarrhea Pre-diabetes Polyarthralgia Pelvic pain OLYA (obstructive sleep apnea) ADHD Back pain Hypoglycemia Surgical History Status post sleeve gastrectomy Status post surgery Hx of colonoscopy History of esophagogastroduodenoscopy (EGD) Hx of oral surgery History of endometrial ablation H/O umbilical hernia repair History of mandibular surgery History of hysteroscopy History of bilateral tubal ligation H/O section Hx laparoscopic cholecystectomy Hx of tonsillectomy H/O laparoscopy Family History Mother Diabetes HTN (hypertension) Pulmonary edema Maternal Grandmother Cancer Sister Diabetes Father No problems noted. Social History Household Members: Spouse Housing: Apartment Are you a primary rn wound care to a significant other at home: No Do you presently have visiting nurse or other home services: No Alcohol intake: never Patient Tobacco Use Status: Former Tobacco user Quit Date: 2011 Tobacco use type: Cigarette e-Cigarette/Vaping Use: Never Used Second Hand Smoke Exposure: Yes service: No Current occupational status: employed Current occupational exposures/hazards: No Sexual orientation: Straight/Heterosexual Gender identity: Female Cognitive needs: No Hearing needs: No Vision needs: Yes (glasses) Female Reproductive History Menstrual Age of Menarche: 11 Review of Systems Const Denies fatigue, Denies fever(s), Denies night sweats, Denies poor appetite and Denies weight loss ENT Reports Normal hearing present, Denies dysphagia, Denies odynophagia, Denies throat swelling and Denies tongue swelling Card Reports no additional complaints Resp Reports no additional complaints GI Details: Denies abdominal pain, Denies melena, Denies bloating, Denies hematochezia, Denies constipation, Denies GI cramping, Denies dysphagia, Denies excessive flat us, Denies early satiety, Reports heartburn, Reports diarrhea, Denies nausea, Denies odynophagia, Denies vomiting and Denies hematemesis Skin/Breast Denies pruritus, Denies lesions, Denies rash and Denies jaundice Neuro Reports Normal hearing present and Denies Abnormal speech present Endo Denies fatigue Aller/Immun Denies throat swelling and Denies tongue swelling Physical Exam Vital Signs: Last Vital Signs Pulse 70 09/29/23 10:59 BP 109/64 09/29/23 10:59 BMI result Body Mass Index 31.2 Const General: cooperative, no acute distress, well developed and well groomed Nutritional Appearance: well nourished and overweight Orientation/consciousness: oriented to person, oriented to place and oriented to time Limitations: No language barrier HEENT Head: Yes normocephalic and Yes atraumatic Eyes General: appearance normal, both eyes and all related structures Pupils: Equal, round and reactive pupils present Neck Neck: Yes normal visual inspection and Yes no lymphadenopathy Thyroid: Thyroid normal Resp Effort & Inspection: normal respiratory effort and able to speak in complete sentences Auscultation: clear to auscultation bilaterally Cardio Rate: regular rate Rhythm: regular rhythm Heart sounds: Normal, physiologic split S2 sound present Peripheral pulses: radial pulses present and posterior tibial pulses present GI Inspection: No distended and No Abdominal panniculus present Palpation (GI): Soft to palpation, nontender, no guarding, not rigid and No hepatosplenomegaly present Percussion: Yes normal to percussion Auscultation: normal bowel sounds Rectal Exam - Female: deferred Skin General skin exam: no rashes or lesions noted, turgor normal, skin not dry, no jaundice, No spider nevi and no striae Rashes: no rashes Nails: normal Neuro General: oriented to person, oriented to place and oriented to time Cranial nerves: Yes Equal, round and reactive pupils present and Yes Normal hearing present Speech: No Abnormal speech present Extrem General: Yes normal to inspection, No clubbing, No cyanosis and No edema Psych Appearance: grossly normal and well kempt Mental Status: mental status grossly normal Speech and movement: Normal speech and movement present Affect: normal affect Attitude: cooperative Thought process: Normal thought process present and not confabulating Thought content: Normal thought content present Insight: Fair insight present (Psych) Judgement: Fair judgement present (Psych) Assessment & Plan Assessment & Plan (1) Hepatic steatosis: Comment: 02/2020 ast/alt 56/78 alk phos normal, ast/alt 56/78 neg mitochondrial ab, neg HEp A, B and C, 05/2021 ferritin is elevated at 151, GGT is 101, alpha fetoprotein is 4.0, autoimmune workup is completely negative.US WITH ELASTOGRAPHY (ordered by bariatrics) 09/30/21 (F3) median stiffness is 2.3 m/s 2014 LIVER BIOPSY A. CHRONIC CHOLECYSTITIS. CHOLELITHIASIS. B. LIVER BIOPSY WITH MODERATE MICROVESICULAR FATTY CHANGE, MILD ACUTE CHOLANGITIS, AND FOCAL MILD ACUTE PERIPORTAL HEPATITIS. THERE IS NO INCREASE IN PORTAL TRACT FIBROUS TISSUE AND NO EVIDENCE OF CHOLESTASIS. A SPECIAL STAIN FOR IRON IS NEGATIVE. IMPRESSION: LIVER BIOPSY WITH THE CHANGES OF MILD ACUTE CHOLANGITIS AND ASSOCIATED FOCAL MILD ACUTE PERIPORTAL HEPATITIS CONSISTENT WITH ASCENDING CHOLANGITIS SECONDARY TO PARTIAL EXTRAHEPATIC LARGE BILE DUCTOBSTRUCTION. 05/23/21 Ferritin 151 H Total Bilirubin 0.4 GGT 101 H AST 42 H ALT 71 H Alkaline Phosphatase 109 Alpha Fetoprotein 4.0 RADHA Screen NEGATIVE Anti-Mitochondrial Ab NEGATIVE Anti-Smooth Muscle Ab <20 US WITH ELASTOGRAPHY (ordered by bariatrics) 09/30/21 (F3) CURRENT LABS 08/22/21 03/11/23 08:12 10:53 Estimated GFR > 60 Hemoglobin A1c % 5.6 Total Bilirubin 0.5 AST 22 ALT 20 Alkaline Phosphatase 50 US WITH ELASTOGRAPHY (ordered by bariatrics) 09/30/21 (F3) US OF THE ABD 03/31/23 IMPRESSION: Hepatosplenomegaly. Diffuse increase in echogenicity of the liver is characteristic of primary hepatocellular disease, possibly due to hepatic steatosis and additionally limits visualization. Gallbladder is surgically absent. Dictated By: Carolyn Ruano MD Signed By: <Electronically signed by Carolyn Ruano MD in OV> 03/31/23 Code(s): K76.0 - Fatty (change of) liver, not elsewhere classified (2) GERD (gastroesophageal reflux disease): Code(s): K21.9 - Gastro-esophageal reflux disease without esophagitis Qualifiers: Esophagitis presence: without esophagitis Qualified Code(s): K21.9 - Gastro-esophageal reflux disease without esophagitis (3) Bile salt-induced diarrhea: Comment: Doing well with avoiding fats Code(s): K90.89 - Other intestinal malabsorption (4) Irritable bowel syndrome with diarrhea: Code(s): K58.0 - Irritable bowel syndrome with diarrhea Plan She thinks that she has the colonoscopy next week, I don't see this in the computer, so I will have her see the schedulers when she leaves. She is agreeable to having more tests for her red. She is also seeing a provider for a second opinion about tjhis. SHe takes milk thistle and she co ntinues to have wt loss after her bariatric surgery. Her IBS has been well controlled recently. Her GERD has been worsened she would like something to use as needed and is requesting omeprazole. I counseled her that Pepcid is really far better to use when you use it intermittently since it has a faster onset of action and she is agreeable to having this prescribed. COLONOSCOPY BIOPSY Orders: Orders Comprehensive Met. Panel Today K76.0 - Fatty (change of) liver, not elsewhere classified Complete Blood Count Auto Diff Today K76.0 - Fatty (change of) liver, not elsewhere classified Alpha Fetoprotein Today K76.0 - Fatty (change of) liver, not elsewhere classified US abdomen comp w elastography Today K76.0 - Fatty (change of) liver, not elsewhere classified Medications: New famotidine (Pepcid) 40 mg PO BEDTIME 30 tabs 6RF K21.9 - Gastro-esophageal reflux disease without esophagitis Coding Level of Care Code Est Pt Level 3 (13292) Diagnoses Hepatic steatosis K76.0 Gastroesophageal reflux disease without esophagitis K21.9 Esophagitis presence: without esophagitis Bile salt-induced diarrhea K90.89 Irritable bowel syndrome with diarrhea K58.0
[2023-09-29 10:59] VITALS: BP 109/64; PULSE 70; BMI 31.2
== END 2023-09-29 12:44 | disposition home or self-care (01) ==
PROVIDERS: PCP Internal Medicine; Visit Provider Nurse Practitioner
DX: K76.0 Fatty (change of) liver, not elsewhere classified (principal); K21.9 Gastro-esophageal reflux disease without esophagitis; K90.89 Other intestinal malabsorption; K58.0 Irritable bowel syndrome with diarrhea
CPT/HCPCS: 99213

== ENCOUNTER → 2023-09-29 10:47 | Outpatient (BNVA) | payer OTHER, SELFPAY | PROVIDERS: PCP Internal Medicine; Visit Provider Nurse Practitioner | DX: K76.0 Fatty (change of) liver, not elsewhere classified (principal); K21.9 Gastro-esophageal reflux disease without esophagitis; K90.89 Other intestinal malabsorption; K58.0 Irritable bowel syndrome with diarrhea | CPT/HCPCS: 99212 ==

== ENCOUNTER 2023-10-06 09:12 | Day surgery (SDC) | payer OTHER, SELFPAY ==
[2023-10-04 13:59] VITALS: BMI 31.0
--- NOTE | 2023-10-06 10:59 | HO.ANESPROP2 ---
[facility] Active Problems Active Problems: All Active Problems (Updated 09/29/23 @ 14:28 by VERNA Nova) Skin lesions (Acute) Dense breast tissue (Acute) Tubular adenoma of colon (Acute) Dizziness (Acute) Patellofemoral syndrome of right knee (Acute) Excess skin (Acute) Sleep apnea with use of continuous positive airway pressure (CPAP) (Acute) Pelvic pain (Acute) Irritable bowel syndrome with diarrhea (Acute) Hepatic steatosis (Acute) GERD (gastroesophageal reflux disease) (Acute) Bile salt-induced diarrhea (Acute) Candidal vulvovaginitis (Acute) Urine incontinence (Acute) Generalized anxiety disorder (Acute) Obesity (Acute) Abnormal EKG (Acute) Hyperparathyroidism (Acute) Recurrent umbilical hernia (Acute) Dermatitis (Acute) Left hip pain (Acute) Easy bruising (Acute) Carpal tunnel syndrome (Acute) Mild asthma (Acute) Bulging of cervical intervertebral disc (Acute) RADHA positive (Acute) Pre-diabetes (Acute) Polyarthralgia (Acute) Past Medical History Medical History Physical exam Well woman exam Sexual dysfunction Liver fibrosis Abnormal uterine bleeding (AUB) Spotting Urinary frequency Incisional pain Left knee pain Right knee pain Lumbar pain Well woman exam Periumbilical abdominal pain Vulvovaginal candidiasis Ovarian cyst (~03/2020) Pre-op examination UTI (urinary tract infection) Dyspnea Equivocal stress test Depression with anxiety Supraclavicular mass Perineal ulcer Sleep apnea with use of continuous positive airway pressure (CPAP) Prolonged Q-T interval on ECG Chronic pain Migraine GERD (gastroesophageal reflux disease) Anemia Anxiety and depression Hypertension Morbid obesity with BMI of 40.0-44.9, adult Hyperparathyroidism Major depressive disorder, recurrent, moderate Morbid obesity with BMI of 45.0-49.9, adult Recurrent umbilical hernia Dermatitis Morbid obesity due to excess calories Left hip pain Corey's syndrome Benign tumor Easy bruising Carpal tunnel syndrome Mild asthma Bulging of cervical intervertebral disc RADHA positive Irritable bowel syndrome with both constipation and diarrhea Pre-diabetes Polyarthralgia Pelvic pain OLYA (obstructive sleep apnea) ADHD Back pain Hypoglycemia Family History Family History Mother Diabetes HTN (hypertension) Pulmonary edema Maternal Grandmother Cancer Sister Diabetes Father No problems noted. Family history of problems with anesthesia: No Surgical History Surgical History Status post sleeve gastrectomy Status post surgery Hx of colonoscopy History of esophagogastroduodenoscopy (EGD) Hx of oral surgery History of endometrial ablation H/O umbilical hernia repair History of mandibular surgery History of hysteroscopy History of bilateral tubal ligation H/O section Hx laparoscopic cholecystectomy Hx of tonsillectomy H/O laparoscopy History of Problems with Anesthesia: Yes (difficult intubation one time, but s/p bariatric ) Social History Social History Household Members: Spouse Housing: Apartment Are you a primary med care manager to a significant other at home: No Do you presently have visiting nurse or other home services: No Alcohol intake: never Patient Tobacco Use Status: Former Tobacco user Quit Date: 2011 Tobacco use type: Cigarette e-Cigarette/Vaping Use: Never Used Second Hand Smoke Exposure: Yes Advance Directives: No Advance Directives Information Provided: Yes service: No Current occupational status: employed Current occupational exposures/hazards: No Sexual orientation: Straight/Heterosexual Gender identity: Female Cognitive needs: No Hearing needs: No Vision needs: Yes (glasses) Meds Allergies Allergy/AdvReac Type Severity Reaction Status Date / Time No Known Allergies Allergy Verified 10/06/23 10:39 [No Known Allergies*] Exam Height,Weight and Vital Signs: Height 5 ft 1 in Weight 74.389 kg Airway Mallampati Class: II TM Dist: <=3cm Neck ROM: Full Partial: Lower Loose/Missing/Broken Teeth: No Heart: rrr Lungs: cta b/l Assessment and Plan Assessment Anesthesia Assessment: Anesthesia Plan Discussed and Chart Reviewed Final Anesthetic Review Family History of Problems with Anesthesia: No History of Problems with Anesthesia: Yes (difficult intubation one time, but s/p bariatric ) NPO: Yes ASA Class: II Final Preanesthetic Review: No Changes in Pt Med Stat, Meds/Allgs Chart Reviewed, Consent Obtained/Reviewed and Anes Risks/Benef Reviewed Patient Risk: Intermediate Procedure Risk: Intermediate Anesthetic Plan Anesthetic Plan: MAC: Disposition: Standard PACU
[2023-10-06 11:02] VITALS: BP 114/70; PULSE 65; RESP 16; TEMP 36.7; O2SAT 100
--- NOTE | 2023-10-06 11:03 | MHC.SHP ---
Pre-Procedural Eval Section A - 24 Hr Update-Section A only Date of Service: 10/06/23 Section B - Complete if H&P > 30 days Chief Complaint: Benign neoplasm of colon, unspecified Relevant Family History (Specify if Yes): No Relevant Social History: None Present Medications: see Short Stay Collaborative assessment Medical History: Significant History (Sexual dysfunction Liver fibrosis Abnormal uterine bleeding (AUB) Spotting Urinary frequency Incisional pain Left knee pain Right knee pain Lumbar pain Well woman exam Periumbilical abdominal pain Vulvovaginal candidiasis Ovarian cyst (~03/2020) Pre-op examination UTI (urinary tract infection) Dyspn) History of Previous Operations: Relevant previous surgery/procedure and date(s) (Status post sleeve gastrectomy Status post surgery Hx of colonoscopy History of esophagogastroduodenoscopy (EGD) Hx of oral surgery History of endometrial ablation H/O umbilical hernia repair History of mandibular surgery History of hysteroscopy History of bilateral tubal ligation H/O secti) Allergies: Allergies Allergy/AdvReac Type Severity Reaction Status Date / Time No Known Allergies Allergy Verified 10/06/23 10:39 [No Known Allergies*] Review of Systems Sugical H&P ROS: Negative: Constitution, Cardiovascular, Respiratory, Neurological, Psychiatric, Hem-Onc, Allergic/Immunologic, Gastrointestinal, Genitourinary, Musculoskeletal, Integumentary, Endocrine and Eyes/Ears/Nose/Throat Exam Surgical H&P Exam: Normal: HEENT, Normal: Heart, Normal: Lungs, Normal: Extremities, Normal: Abdomen, Normal: Skin and Normal: Neurological Plan Diagnosis/Plan: Unchanged I have reviewed the history and physical and performed a pertinent physical examination on my patient. No changes have occurred unless specified. Time Spent With Patient Time: Total time managing care of this patient today ____ minutes.
--- NOTE | 2023-10-06 12:27 | W.PM.OPN ---
Operative Note Operative Note Date of Service: 10/06/23 Narrative: Operative Information Procedure Description: Colonoscopy Indication: screening Anesthesia: MAC COLONOSCOPY Instrument: Olympus variable stiffness pediatric scope 190L Colonoscopy Monitoring: Vital signs and clinical assessment, continuous EKG monitoring, Pulse oximetry, Carbon Dioxide monitoring and blood pressure monitoring were done throughout the procedure. Colon withdrawal time was 13 minutes. Procedure: The patient was placed in the left lateral decubitis position and pre-procedure medications were administered. After a digital rectal examination of the ano-rectum, the video colonoscope was inserted into the rectum and advanced through the colon to the cecum/TI. The colonoscope was slowly withdrawn in a retrograde panoramic fashion and the colon mucosa was carefully examined including a retroflexed view of the rectum. Findings and interventions are described below. Procedure Difficulty: moderate Findings: Terminal Ileum-normal Cecum:normal Ascending Colon: normal Transverse Colon -normal Descending Colon:normal Sigmoid Colon: normal Rectum: Retroflexion with small internal hemorrhoids seen, grade I Anorectum - normal Intervention: none Colon preparation: [place] Bowel Preparation Scale Right colon; 2- Transverse colon: 2- Left colon; 1-2 (0 = Unprepared colon segment with mucosa not seen due to solid stool that cannot be cleared. 1 = Portion of mucosa of the colon segment seen, but other areas of the colon segment not well seen due to staining, residual stool and/or opaque liquid. 2 = Minor amount of residual staining, small fragments of stool and/or opaque liquid, but mucosa of colon segment seen well. 3 = Entire mucosa of colon segment seen well with no residual staining, small fragments of stool or opaque liquid) Impression and Post Procedure Diagnosis: internal hemorrhoids Plan: High fiber diet leaflet Avoid straining at stool, epsom salts and sitz bath, anusol supps or cream Repeat Colonoscopy in 5 years due to prior hx of polyp and some areas of fair prep or earlier if clinically indicated Above findings were reviewed with the patient and relevant handouts were provided if indicated.
[2023-10-06 13:07] VITALS: BP 106/48; PULSE 69; RESP 19; TEMP 36.7; O2SAT 97
[2023-10-06 13:22] VITALS: BP 100/61; PULSE 78; RESP 18; O2SAT 98
[2023-10-06 13:37] VITALS: BP 118/66; PULSE 70; RESP 16; TEMP 36.4; O2SAT 100
== END 2023-10-06 14:03 | disposition home or self-care (01) ==
PROVIDERS: PCP Internal Medicine; Visit Provider Internal Medicine Gastroenterology
PROC: 0DJD8ZZ Inspection of Lower Intestinal Tract, Via Natural or Artificial Opening Endoscopic (ICD-10-PCS; CPT 45378; principal; 2023-10-06 13:40)
DX: Z12.11 Encounter for screening for malignant neoplasm of colon (principal); Z86.010 Personal history of colon polyps; K64.0 First degree hemorrhoids; K74.00 Hepatic fibrosis, unspecified; K76.0 Fatty (change of) liver, not elsewhere classified; K21.9 Gastro-esophageal reflux disease without esophagitis; K58.0 Irritable bowel syndrome with diarrhea; K90.89 Other intestinal malabsorption; I10 Essential (primary) hypertension; G47.33 Obstructive sleep apnea (adult) (pediatric); Z99.89 Dependence on other enabling machines and devices; N93.9 Abnormal uterine and vaginal bleeding, unspecified; R35.0 Frequency of micturition; Z87.440 Personal history of urinary (tract) infections; G89.29 Other chronic pain; G43.909 Migraine, unspecified, not intractable, without status migrainosus; J45.909 Unspecified asthma, uncomplicated; R73.03 Prediabetes; F41.8 Other specified anxiety disorders; E66.01 Morbid (severe) obesity due to excess calories; Z68.31 Body mass index [BMI] 31.0-31.9, adult; Z79.899 Other long term (current) drug therapy; Z98.84 Bariatric surgery status; Z90.49 Acquired absence of other specified parts of digestive tract; Z87.81 Personal history of (healed) traumatic fracture
CPT/HCPCS: 45378; J2704

== ENCOUNTER → 2023-10-06 09:12 | Outpatient (BNV) | payer OTHER, SELFPAY | PROVIDERS: PCP Internal Medicine; Visit Provider Internal Medicine Gastroenterology | DX: Z12.11 Encounter for screening for malignant neoplasm of colon (principal); Z86.010 Personal history of colon polyps; K64.0 First degree hemorrhoids | CPT/HCPCS: 45378 ==

== ENCOUNTER 2023-10-20 07:42 | Outpatient (REF) | payer OTHER, SELFPAY ==
--- NOTE | ~2023-10-20 | US_ITS ---
EXAMINATION: US COMPLETE ABDOMEN WITH LIVER ELASTOGRAPHY CLINICAL INFORMATION: Fatty liver. COMPARISON: Abdominal ultrasound 03/30/2023. Elastography 09/30/2021. TECHNIQUE: Real-time imaging of the abdominal viscera. Noninvasive ultrasound liver fibrosis assessment is performed using Wing ElastPQ point quantification shear wave elastography (2D-SWE) with a C5-2 MHz transducer. Multiple elastography samples are obtained. FINDINGS: PANCREAS: Normal. The visualized pancreatic head and body are normal in appearance. The remainder of the pancreas is obscured from visualization by the overlying bowel gas. ABDOMINAL AORTA: The proximal, middle, and distal aortic segments are normal in caliber. INFERIOR VENA CAVA: Visualized portions are normal. LIVER: Parenchymal echogenicity is increased consistent with steatosis. No morphologic cirrhosis. No discrete liver mass. The right lobe measures 17.5 cm in length. The left lobe measures 7.1 cm in length. Portal flow is hepatopedal Shear wave liver elastography median stiffness is 1.60 m/s (reference: normal median stiffness is 1.3 m/s or less). IQR/median stiffness to assess sampling precision is 0.18 (reference: good quality data set is IQR/median stiffness of 0.15 or less). GALLBLADDER: Cholecystectomy. COMMON BILE DUCT: Normal in caliber measuring 0.5 cm in diameter. RIGHT KIDNEY: Normal. No hydronephrosis. No renal calculi or focal parenchymal lesions. The kidney measures 12.5 cm in maximum dimension. LEFT KIDNEY: Normal. No hydronephrosis. No renal calculi or focal parenchymal lesions. The kidney measures 12.1 cm in maximum dimension. SPLEEN: Normal. The spleen measures 12.0 cm in maximum dimension. FREE FLUID: None. US/US abdomen comp w elastography IMPRESSION: 1. Hepatic steatosis appears improved compared to prior the last elastography study 09/30/2021. Liver is decreased in size from 22 cm 09/30/2021 to 17 cm. 2. Liver elastography: Although measurements appear to rule out compensated advanced chronic liver disease, there is statistical variability of the sampling which decreases accuracy. When compared with prior exam, there is a statistically significant decrease in liver stiffness (decrease at least 10%). REFERENCE: Society of Radiologists in Ultrasound Liver Stiffness Thresholds (2020): LIVER STIFFNESS THRESHOLDS: *Liver Stiffness equal or less than 1.3 m/s: High probability of being normal. *Liver Stiffness less than 1.7 m/s: In the absence of other known clinical signs, rules out compensated advanced chronic liver disease. *Liver Stiffness 1.7-2.1 m/s: Suggestive of compensated advanced chronic liver disease but need further test for confirmation. *Liver Stiffness over 2.1 m/s: Rules in compensated advanced chronic liver disease. *Liver Stiffness over 2.4 m/s: Suggestive of clinically significant portal hypertension. QUALITY OF DATA SET: *IQR/Median value equal or less than 0.15 implies a quality data set. *IQR/Median value over 0.15 implies a poor quality data set. SIGNIFICANT CHANGE FROM PRIOR EXAM: Significant change if liver stiffness measurement is 10% or greater from prior exam. OTHER CONSIDERATIONS: The stage of liver fibrosis may be overestimated in the setting of acute hepatitis, liver inflammation, elevated liver function tests, hepatic vascular congestion, obstructive cholestasis, non-fasting state, and infiltrative diseases such as amyloidosis and lymphoma. In some patients with NAFLD, the liver stiffness thresholds for compensated advanced chronic liver disease may be lower. In causes other than viral hepatitis and NAFLD, liver stiffness thresholds are not well established.
== END 2023-10-20 07:43 | disposition home or self-care (01) ==
LOC: HO.US 07:42
PROVIDERS: PCP Internal Medicine; Visit Provider Nurse Practitioner
DX: K76.0 Fatty (change of) liver, not elsewhere classified (principal)
CPT/HCPCS: 76700; 76981

== ENCOUNTER 2024-07-26 10:15 | Outpatient (AMB) | payer OTHER, SELFPAY ==
--- NOTE | 2024-07-26 10:23 | A.OFFPC_ITS ---
Vital Signs 07/26/24 10:25 Height 5 ft 1 in Weight 172 lb BMI 32.5 BP 112/70 Blood Pressure Location Lt brachial Position Sitting Intake Visit Reasons: Annual Exam Intake Note: Patient here for an annual physical exam Box Printer Required: No Accompanied by: Self / Same As Patient Allergies No Known Allergies [No Known Allergies*] Allergy (Verified 07/26/24 10:37) Medication List - Last Reconciled 07/26/24 by Jayne Conteh MD albuterol sulfate 90 mcg/actuation 2 puffs inhalation Q6H PRN cyclobenzaprine 10 mg PO BEDTIME PRN 30 days famotidine (Pepcid) 40 mg PO BEDTIME ibuprofen 800 mg PO TID PRN 30 days leg brace (Knee Support Brace) As directed Tobacco use date assessed: 07/26/24 Dental Screening Dental Screen Date: 07/26/24 Did you have a dental visit in the last 12 months?: Yes Did you have a dental problem in the last 6 months where you did not have access to dental care?: No Was dental information given to patient?: Patient has dentist HPI HPI Comments History of Present Illness Details The patient is a 43-year-old female presenting for her physical exam. Her bariatric surgery was performed in 2021, resulting in a significant weight loss of over 100 pounds, reducing her weight to 153 pounds. However, her weight has recently increased to approximately 172 pounds. She reports adherence to a regimen of vitamins including Vitamin D3, iron supplements, calcium, and a multivitamin, as these were advised post-surgery to prevent deficiencies. Additionally, the patient continues to experience symptoms of fatigue, body aches, and minor depression with a PHQ-9 score of 6. She reports infrequent migraines and changes in her menstrual cycle, including irregular menstruation since the surgery, which has regulated somewhat postoperatively. Her weight and overall postoperative recovery are complicated by these ongoing issues. - Tetanus vaccination is due; intends to administer during this visit. - Regular screening including mammograph y in 2022. - Colonoscopy completed in 2021 with nex t due in 2023. - Continuous management and monitoring o f vitamin deficiencies post-surgery with Vitamin D, iron, calcium, and multivitamins. - Discussion of weight management strate gies post-gastrectomy. [facility] Medical History (Updated 07/26/24 @ 12:27 by Jayne Conteh MD) Physical exam Well woman exam Sexual dysfunction Liver fibrosis Abnormal uterine bleeding (AUB) Spotting Urinary frequency Incisional pain Left knee pain Right knee pain Lumbar pain Well woman exam Periumbilical abdominal pain Vulvovaginal candidiasis Ovarian cyst (~03/2020) Pre-op examination UTI (urinary tract infection) Dyspnea Equivocal stress test Depression with anxiety Supraclavicular mass Perineal ulcer Sleep apnea with use of continuous positive airway pressure (CPAP) Prolonged Q-T interval on ECG Chronic pain Migraine GERD (gastroesophageal reflux disease) Anemia Anxiety and depression Hypertension Morbid obesity with BMI of 40.0-44.9, adult Hyperparathyroidism Major depressive disorder, recurrent, moderate Morbid obesity with BMI of 45.0-49.9, adult Recurrent umbilical hernia Dermatitis Morbid obesity due to excess calories Left hip pain Hernshaw's syndrome Benign tumor Easy bruising Carpal tunnel syndrome Mild asthma Bulging of cervical intervertebral disc JAYNE positive Irritable bowel syndrome with both constipation and diarrhea Pre-diabetes Polyarthralgia Pelvic pain OLYA (obstructive sleep apnea) ADHD Back pain Hypoglycemia Surgical History Status post sleeve gastrectomy Status post surgery Hx of colonoscopy History of esophagogastroduodenoscopy (EGD) Hx of oral surgery History of endometrial ablation H/O umbilical hernia repair History of mandibular surgery History of hysteroscopy History of bilateral tubal ligation H/O section Hx laparoscopic cholecystectomy Hx of tonsillectomy H/O laparoscopy Family History Mother Diabetes HTN (hypertension) Pulmonary edema Maternal Grandmother Cancer Sister Diabetes Father No problems noted. Social History Household Members: Spouse Housing: Apartment Are you a primary account executive healthcare to a significant other at home: No Do you presently have visiting nurse or other home services: No Alcohol intake: never Patient Tobacco Use Status: Former Tobacco user Tobacco use type: Cigarette e-Cigarette/Vaping Use: Never Used Second Hand Smoke Exposure: Yes service: No Current occupational status: employed Current occupational exposures/hazards: No Sexual orientation: Straight/Heterosexual Gender identity: Female Cognitive needs: No Hearing needs: No Vision needs: Yes (glasses) Female Reproductive History Menstrual Age of Menarche: 11 Questionnaire PHQ-9 Over the last 2 weeks, how often have you been bothered by any of the following problems? 1. Little interest or pleasure in doing things: not at all 2. Feeling down, depressed, or hopeless: not at all 3. Trouble falling or staying asleep, or sleeping too much: nearly every day 4. Feeling tired or having little energy: nearly every day 5. Poor appetite or overeating: not at all 6. Feeling bad about yourself - or that you are a failure or have let yourself or your family down: not at all 7. Trouble concentrating on things, such as reading the newspaper or watching television: not at all 8. Moving or speaking so slowly that other people could have noticed. Or the opposite - being so fidgety or restless that you have been moving around a lot more than usual: not at all 9. Thoughts that you would be better off or of hurting yourself in some way: not at all Total score: 6 Depression Screening Interpretation: Positive Depression Screening Follow-up: Existing condition, Follow-up Visit Requested and Declines treatment Depression Screening Done: Yes 17321 - PHQ-9 Billing: Yes Source: Developed by Drs. Adrien Rodriguez, Maricel Chris, Donell Carey and colleagues, with an educational tia from [employer]. Thrive Questionnaire Date Thrive assessed: 07/26/24 I am a: Patient What is your living situation today?: I have a steady place to live Within the past 12 months, did the food you bought not last and you didn't have the money to get more?: Never true Within the past 12 months, did you worry whether your food would run out before you got money to buy more?: Never true Do you have trouble paying for medicines?: No Do you have trouble getting transportation to medical appointments?: No Do you have trouble paying your heating and electricity bill?: No Do you have trouble taking care of your child, family member or friend?: No Do you have trouble with day-to-day activities such as bathing, preparing meals, shopping, managing finances, etc.?: No Are you currently unemployed and looking for a job?: No Are you interested in more education?: No Please select the resources that you would like help with: None Currently or been in a relationship where the following occur: No concerns reported THRIVE Score: 0 AUDIT C Alcohol Use Questionnaire (AUDIT-C) 1. How often do you have a drink containing alcohol?: Never 3. How often do you have six or more drinks on one occasion?: Never Total Score: 0 ISIDRA-7 AMB Questionnaire ISIDRA-7 Date ISIDRA - 7 assessed: 07/26/24 Feeling nervous, anxious, or on edge: 1 = Several days Not being able to stop or control worryin = Not at all Worrying too much about different things: 0 = Not at all Trouble relaxin = Several days Being so restless that it is hard to sit still: 1 = Several days Becoming easily annoyed or irritable: 1 = Several days Feeling afraid as if something awful might happen: 0 = Not at all Total ISIDRA-7 score (0-4 normal; 5-9 mild; 10-14 moderate; 15-21 severe): 4 Source: Developed by Drs. Adrien Rodriguez, Maricel Chris, Donell Carey and colleagues, with an educational tia from [employer]. ISIDRA-7 Assessment Billing ISIDRA-7 Assessment Tool: ISIDRA-7 Assessment 29897 Review of Systems Const All systems reviewed & are unremarkable except as noted in HPI and below Card Denies chest pain at rest, Denies chest pain with activity, Denies edema, Denies irregular heart rhythm, Denies claudication, Denies dyspnea, Denies dyspnea on exertion, Denies orthopnea, Denies paroxysmal nocturnal dyspnea and Denies slow heart rate Resp Denies cough, Denies dyspnea and Denies dyspnea on exertion Physical exam (Primary Care) Vital Signs: Last Vital Signs BP 112/70 07/26/24 10:25 BMI result Body Mass Index 32.5 Tobacco/Smoking Status: Tobacco use Status Tobacco use date assessed 07/26/24 07/26/24 10:31 Patient Tobacco Use Status Former Tobacco user 07/26/24 10:31 Tobacco use type Cigarette 07/26/24 10:31 e-Cigarette/Vaping Use Never Used 07/26/24 10:31 PHQ-9: PHQ-9 Score PHQ-9: Total score 6 07/26/24 10:51 Depression Screening Interpretation: Positive Depression Screening Follow-up: Existing condition, Follow-up Visit Requested and Declines treatment Thrive Assessment: Date of Thrive Assessment Date Thrive assessed 07/26/24 07/26/24 10:31 Currently or been in a relationship where the following occur: No concerns reported [facility] Head: Yes normal to inspection, Yes normocephalic and Yes atraumatic Ears: external ears normal Eyes General: appearance normal, both eyes and all related structures Eyelids: Yes eyelids normal Conjunctivae: conjunctivae normal Neck Neck: Yes normal visual inspection and Yes supple Resp Effort & Inspection: normal respiratory effort Auscultation: clear to auscultation bilaterally Cardio Jugular venous distension: no JVD Rate: regular rate Rhythm: regular rhythm Heart sounds: S1 normal heart sound present and S2 normal heart sound present GI Inspection: Yes normal to inspection Palpation (GI): Soft to palpation and nontender Auscultation: normal bowel sounds Skin General skin exam: no rashes or lesions noted Neuro General: no focal motor deficits Extrem General: Yes full ROM Psych Appearance: grossly normal Office Procedures Flu Questionnaire Does the patient have a severe egg allergy?: No Immunizations Fluarix Triv [id number] (PF) 45 mcg (15 mcg x 3)/0.5 mL IM syringe Performing Provider: Jayne Conteh MD Performing Location: [facility] Documented (not given) by: ANASTASIA Velázquez on 07/26/24 10:51 Reason Not Given: Not Given Boostrix Tdap 2.5 Lf unit-8 mcg-5 Lf/0.5 mL intramuscular syringe Performing Provider: Jayne Conteh MD Performing Location: [facility] Administered by: ANASTASIA Velázquez on 07/26/24 10:55 Dose Route Admin Location Dispensed Lot Number Expiration Date NDC Xm1 Tank Driver 0.5 mL IM Left Deltoid 0.5 mL [id number] 08/05/26 21965-019-60 [employer] VIS Given Date VIS Provided VIS Publication Date 07/26/24 Single Vaccine 21 Eligibility Eligibility Date Funding Source Not [facility] Eligible 07/26/24 Private Coding Level of Care Code Est Pt Prev Care 40-64y(48190) Diagnoses Physical exam Z00.00 Additional Codes ISIDRA-7 Assessment Billing - ISIDRA-7 Assessment Tool: ISIDRA-7 Assessment 91419 ([id number]) PHQ-9 - 62490 - PHQ-9 Billing: Yes ([id number]) Time Spent (min) 30 Assessment & Plan Assessment & Plan (1) Physical exam: Code(s): Z00.00 - Encounter for general adult medical examination without abnormal findings Category: Medical Plan - Continue current vitamin supplementation regimen, including Vitamin D3, iron, calcium, and multivitamins. - Ensure administration of tetanus vaccination at this visit. - Follow-up with gastroenterology regarding weight management post-gastrectomy. - Address minor depression symptoms with regular monitoring and non- pharmacological interventions. - Plan for routine lab work to monitor health indicators considering her di abetes and postoperative status. - Encourage lifestyle modifications and structured weight management strategies to maintain postoperative weight loss. Patient was informed and verbally consented to the use of an ambient scribe for clinic note documentation during this visit. I discussed with the patient her postoperative status and the importance of continuing with her vitamin supplementation regimen to address deficiencies critical to her surgical recovery. We addressed her minor depression and its potential impact on her overall quality of life and advised non-pharmacological approaches such as regular exercise and stress management techniques. Vaccination was reviewed, with tetanus needing to be updated during this visit. We also discussed her future screenings and continued follow-up with specialists to ensure comprehensive care. Weight management strategies were proposed, emphasizing the importance of maintaining healthy lifestyle practices post- gastrectomy. Orders: Orders MM tomosynthesis screening BI Today Z12.31 - Encounter for screening mammogram for malignant neoplasm of breast Influenza [id number] Immunization Today Z23 - Encounter for immunization TDaP Immunization Today Z23 - Encounter for immunization Medications: Refilled cyclobenzaprine 10 mg PO BEDTIME PRN 30 tabs 0RF muscle spasm 30 days famotidine (Pepcid) 40 mg PO BEDTIME 30 tabs 6RF K21.9 - Gastro-esophageal reflux disease without esophagitis ibuprofen 800 mg PO TID PRN 90 tabs 0RF pain 30 days Patient Instructions: - Continue taking prescribed vitamins: Vitamin D3, iron, calcium, and multivitamins. - Receive tetanus vaccination during this visit. - Adhere to recommended lab tests to monitor health functions, particularly considering diabetes. - Incorporate stress management and potential lifestyle changes to address minor depression symptoms. - Follow through with regularly scheduled screenings and follow-ups with specialists. - Maintain healthy dietary and activity habits to manage weight gain post- surgery.
[2024-07-26 10:25] VITALS: BP 112/70; BMI 32.5
== END 2024-07-26 10:57 | disposition home or self-care (01) ==
PROVIDERS: PCP Internal Medicine; Visit Provider Internal Medicine
DX: Z23 Encounter for immunization (principal); Z00.00 Encounter for general adult medical examination without abnormal findings

== ENCOUNTER → 2024-07-26 10:15 | Outpatient (BNVA) | payer OTHER, SELFPAY | PROVIDERS: PCP Internal Medicine; Visit Provider Internal Medicine | DX: Z00.00 Encounter for general adult medical examination without abnormal findings (principal); Z23 Encounter for immunization; Z98.84 Bariatric surgery status | CPT/HCPCS: 90471; 90715; 96127 ==

== ENCOUNTER 2024-08-14 14:25 | Emergency (ER) | payer OTHER, SELFPAY ==
--- NOTE | ~2024-08-14 | CT_ITS ---
CLINICAL HISTORY: fall, head strike CT head without contrast Comparison: MR/REG/ID - MRI BRAIN WITHOUT CONT [id number] - 04/03/20 18:58 EDT Findings: No intra-axial mass, midline shift, hydrocephalus, or acute hemorrhage. Partially empty sella. No significant atrophy-like change or white matter disease. Mild mucosal thickening in the right maxillary sinus. The orbits are unremarkable. No skull fracture. IMPRESSION: 1. No acute intracranial findings. This document has been electronically signed by: Traci Mayfield MD on 08/14/2024 21:33:27
--- NOTE | ~2024-08-14 | CT_ITS ---
CLINICAL HISTORY: fall, head strike, pain CT cervical spine without contrast Comparison: CR/SR - CERV SPINE 4 TO 5 VIEWS [id number] - 01/25/19 16:51 EDT Findings: Reversal of the normal cervical lordosis is likely positional. No acute fractures or dislocations. Visualized intracranial contents are unremarkable. Soft tissues of the neck are normal. Lung apices are clear. IMPRESSION: 1. No acute cervical spine injury. This document has been electronically signed by: Traci Mayfield MD on 08/14/2024 21:22:59
[2024-08-14 14:45] VITALS: BP 108/73; PULSE 76; RESP 18; TEMP 37; O2SAT 97; BMI 32.1
--- NOTE | 2024-08-14 17:35 | ED.GENADULT ---
HPI - General Adult General Chief complaint: Head Injury Stated complaint: Head inj work related Time Seen by Provider: 08/14/24 19:26 Source: patient Mode of arrival: ambulatory Limitations: no limitations History of Present Illness ED Provider: gia garcia NP HPI narrative: Patient is a 43-year-old female who presents emergency department for evaluation. 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 Reports that she fell backwards striking her head denies any loss of consciousness. She is not on any anticoagulants nor does she have any known coagulation disorders. She reports this occurred at approximately 11:00 this afternoon. Approximately 2 hours later while driving she had a brief episode where she felt suddenly dizzy and her vision became blurry. She presented to work connection for evaluation where she was referred to emergency department for further evaluation. 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 She has no further episodes of dizziness or vision changes. She has a posterior headache, discomfort to the right lateral neck which is acute on chronic, admits to a history of a bulging disc in the cervical spine is unclear exactly which location, she is chronically prescribed ibuprofen and cyclobenzaprine for pain she did not take either today. She denies numbness or tingling of her extremities, stiffness to the neck, chest pain, shortness breath, abdominal pain, bladder bowel dysfunction. Related Data Previous Rx's ?Medication ?Instructions ?Recorded albuterol sulfate 90 mcg/actuation 2 puff inhalation Q6H PRN Wheezing 12/12/21 aerosol inhaler #8.5 grams leg brace (Knee Support Brace) #1 ea 03/11/23 cyclobenzaprine 10 mg tablet 10 mg PO BEDTIME PRN muscle spasm 07/26/24 30 days #30 tabs famotidine 40 mg tablet (Pepcid) 40 mg PO BEDTIME #30 tabs 07/26/24 ibuprofen 800 mg tablet 800 mg PO TID PRN pain 30 days #90 07/26/24 tabs Allergies Allergy/AdvReac Type Severity Reaction Status Date / Time No Known Allergies Allergy Verified 08/14/24 14:46 [No Known Allergies*] Review of Systems Review of Systems: Yes all other systems are reviewed and are negative PMFSH Past Medical History Attestation statement: The following information was validated with the patient. Source: old records reviewed Medical History Physical exam Well woman exam Sexual dysfunction Liver fibrosis Abnormal uterine bleeding (AUB) Spotting Urinary frequency Incisional pain Left knee pain Right knee pain Lumbar pain Well woman exam Periumbilical abdominal pain Vulvovaginal candidiasis Ovarian cyst (~03/2020) Pre-op examination UTI (urinary tract infection) Dyspnea Equivocal stress test Depression with anxiety Supraclavicular mass Perineal ulcer Sleep apnea with use of continuous positive airway pressure (CPAP) Prolonged Q-T interval on ECG Chronic pain Migraine GERD (gastroesophageal reflux disease) Anemia Anxiety and depression Hypertension Morbid obesity with BMI of 40.0-44.9, adult Hyperparathyroidism Major depressive disorder, recurrent, moderate Morbid obesity with BMI of 45.0-49.9, adult Recurrent umbilical hernia Dermatitis Morbid obesity due to excess calories Left hip pain Corey's syndrome Benign tumor Easy bruising Carpal tunnel syndrome Mild asthma Bulging of cervical intervertebral disc JAYNE positive Irritable bowel syndrome with both constipation and diarrhea Pre-diabetes Polyarthralgia Pelvic pain OLYA (obstructive sleep apnea) ADHD Back pain Hypoglycemia Surgical History Status post sleeve gastrectomy Status post surgery Hx of colonoscopy History of esophagogastroduodenoscopy (EGD) Hx of oral surgery History of endometrial ablation H/O umbilical hernia repair History of mandibular surgery History of hysteroscopy History of bilateral tubal ligation H/O section Hx laparoscopic cholecystectomy Hx of tonsillectomy H/O laparoscopy Family History Family History Mother Diabetes HTN (hypertension) Pulmonary edema Maternal Grandmother Cancer Sister Diabetes Father No problems noted. Social History Social History Household Members: Spouse Housing: Apartment Are you a primary neonatal intensive care nurse to a significant other at home: No Do you presently have visiting nurse or other home services: No Alcohol intake: never Patient Tobacco Use Status: Former Tobacco user Tobacco use type: Cigarette Smoked in Last 30 Days: No e-Cigarette/Vaping Use: Never Used Second Hand Smoke Exposure: Yes Use of substances other than those prescribed or required for medical reasons: No Advance Directives: No Advance Directives Information Provided: No Do you have a plan to hurt others: No Plan service: No Current occupational status: employed Current occupational exposures/hazards: No Sexual orientation: Straight/Heterosexual Gender identity: Female Cognitive needs: No Hearing needs: No Vision needs: Yes (glasses) Physical Exam ED Vital Signs: Vital Signs - 24 hr 08/14/24 14:45 08/14/24 20:47 Temperature 98.6 F 98.1 F Pulse Rate 76 63 Respiratory Rate 18 14 Blood Pressure 108/73 122/76 Pulse Oximetry 97 99 Oxygen Delivery Method Room Air Room Air BMI result Body Mass Index 32.1 Appearance: Alert.?Oriented to person, place and time. No acute distress.?Normal affect. Head: Normocephalic Eyes: Pupils equal, round and reactive to light. EOMI. Conjunctiva and sclera normal? No Freeman sign noted. No raccoon eyes noted ENT: No septal hematoma, nares patent bilaterally. External auditory canal normal tympanic membrane pearly evans and intact bilaterally. Dentition normal, no fractured teeth. No lesions or lacerations of oropharynx. Uvula midline. Moist mucous membranes. Neck: Normal inspection.? Neck supple.??No palpable tenderness, step-off, deformities. CVS: Heart sounds normal. Normal heart rate and rhythm.? Pulses normal.?? Respiratory: No respiratory distress.? Lung sounds clear to auscultation bilaterally?? Abdomen: Soft and non-tender. Normoactive bowel sounds. ?? Skin: Skin warm and dry.? Normal skin color.? Normal skin turgor.?? Extremities: No lower extremity edema.? Neuro: Moves all extremities spontaneously. Sensation intact bilaterally. CN II-XII intact. No focal neuro deficits. Course Course Course Narrative: RME performed by Gilma Enamorado PA-C. Patient is a 43 year old assigned female at presenting to the emergency department with a headache and neck pain after a slip and fall. Patient states she slipped and fell, hitting the back of her head. 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 Imaging ordered. Patient placed back in the waiting room pending room availability and results. Reevaluation(s) Reevaluation #1: CT of the head and cervical spine without acute pathology. At this time she remains without focal neurological deficits ambulatory with a steady gait. Feel that she is stable for discharge home. Discussed strict return precautions. All questions were answered. Stable for discharge Medications Administered Discontinued Medications Generic Name Dose Route Start Last Admin Trade Name Norbert PRN Reason Stop Dose Admin Acetaminophen 975 mg 08/14/24 19:54 08/14/24 19:59 Acetaminophen 325 Mg Tablet PO 08/14/24 19:55 975 mg ONCE ONE Administration Medical Decision Making Medical Decision Making MDM Narrative: Patient is a 43-year-old female presents emergency department for evaluation after mechanical slip and fall on the ice as per HPI. Overall she is well-appearing, nontoxic, afebrile. Vital signs are stable. No focal neurological deficits on the time my evaluation. She did have a posterior head strike associated with this, no high-risk factors for ICH, however given symptoms following obtaining CT head and cervical spine to exclude ICH, SDH, fracture subluxation. She is amenable to trialing acetaminophen for her pain at this time. She is ambulatory with a steady gait moving all extremities. No additional complaints at this time. Differential Diagnosis Differential Diagnoses: The differential diagnosis associated with the presentation includes (See narrative above) Admission/Observation Consideration of admission/observation: Escalation of care including admission/observation considered (See narrative above) Radiology Impression Discussion of test interpretation with radiology: I have reviewed the radiologist's reading. Radiologist Impression: CT cervical spine without contrast Comparison: CR/SR - CERV SPINE 4 TO 5 VIEWS [id number] - 01/25/19 16:51 EDT Findings: Reversal of the normal cervical lordosis is likely positional. No acute fractures or dislocations. Visualized intracranial contents are unremarkable. Soft tissues of the neck are normal. Lung apices are clear. IMPRESSION: 1. No acute cervical spine injury. CT head without contrast Comparison: MR/REG/FL - MRI BRAIN WITHOUT CONT [id number] - 04/03/20 18:58 EDT Findings: No intra-axial mass, midline shift, hydrocephalus, or acute hemorrhage. Partially empty sella. No significant atrophy-like change or white matter disease. Mild mucosal thickening in the right maxillary sinus. The orbits are unremarkable. No skull fracture. IMPRESSION: 1. No acute intracranial findings. External Record Review External record reviewed: Outpatient record Prescription Management I considered prescription management with: Pain Medication Chronic Conditions Patient?s care impacted by: Other (see pmfsh section) Discharge Plan Discharge Clinical Impression: Concussion without loss of consciousness Patient Disposition: Home, Self-Care Instructions: Concussion (ED) Additional Instructions: CT imaging does not show evidence of bleeding which was very reassuring, no evidence of fracture. You can take ibuprofen 200 mg, 3 tablets (600mg) every 6-8 hours as needed for pain, in addition to Tylenol 500 mg, 2 tablets (1,000mg) every 4-6 hours as needed for pain, but not to exceed 3 doses daily (3,000mg).? Be sure to rest over the next few days, refrain from excessive screen time which can make headaches and symptoms with concussion worse. Follow-up with your primary care doctor. You may return to emergency department any new or worsening symptoms or concerns. Prescriptions: No Action albuterol sulfate 90 mcg/actuation HFA aerosol inhaler 2 puff inhalation Q6H PRN (Reason: Wheezing) Qty: 8.5 1RF (DME) Knee Support Brace Misc See Rx Instructions .Route Qty: 1 0RF Rx Instructions: As directed cyclobenzaprine 10 mg tablet 10 mg PO BEDTIME PRN (Reason: muscle spasm) 30 Days Qty: 30 0RF famotidine [Pepcid] 40 mg tablet 40 mg PO BEDTIME Qty: 30 6RF ibuprofen 800 mg tablet 800 mg PO TID PRN (Reason: pain) 30 Days Qty: 90 0RF Referrals: Jayne Watkins MD [Primary Care Provider] - Print Language: Icelandic
[2024-08-14] MEDS: Acetaminophen 325 MG TABLET 975 MG PO (19:59)
[2024-08-14 20:47] VITALS: BP 122/76; PULSE 63; RESP 14; TEMP 36.7; O2SAT 99
[2024-08-14 22:40] VITALS: BP 122/76; PULSE 63; RESP 14; TEMP 36.7; O2SAT 99
== END 2024-08-14 22:41 | disposition home or self-care (01) ==
PROVIDERS: Emergency Provider Emergency Medicine Emergency Medical Services; PCP Internal Medicine
DX: S06.0X0A Concussion without loss of consciousness, initial encounter (principal); R51.9 Headache, unspecified; M54.2 Cervicalgia; W00.0XXA Fall on same level due to ice and snow, initial encounter; Y93.01 Activity, walking, marching and hiking; Y92.89 Other specified places as the place of occurrence of the external cause; Y99.0 Civilian activity done for income or pay
CPT/HCPCS: 70450; 72125; 99284

== ENCOUNTER → 2024-08-14 17:36 | Outpatient (BNV) | payer OTHER, SELFPAY | PROVIDERS: Emergency Provider Emergency Medicine Emergency Medical Services; PCP Internal Medicine; Visit Provider Radiology Diagnostic Radiology | DX: S09.90XA Unspecified injury of head, initial encounter (principal) | CPT/HCPCS: 70450; 72125 ==

== ENCOUNTER → 2024-08-15 13:45 | Outpatient (BNVA) | payer OTHER, SELFPAY | PROVIDERS: PCP Internal Medicine; Visit Provider Physician Assistant Medical | DX: Z09 Encounter for follow-up examination after completed treatment for conditions other than malignant neoplasm (principal); S00.93XA Contusion of unspecified part of head, initial encounter; S16.1XXA Strain of muscle, fascia and tendon at neck level, initial encounter; S46.819A Strain of other muscles, fascia and tendons at shoulder and upper arm level, unspecified arm, initial encounter; S39.012A Strain of muscle, fascia and tendon of lower back, initial encounter; W00.0XXA Fall on same level due to ice and snow, initial encounter | CPT/HCPCS: 99203 ==

== ENCOUNTER → 2024-08-22 13:43 | Outpatient (BNVA) | payer OTHER, SELFPAY | PROVIDERS: PCP Internal Medicine; Visit Provider Physician Assistant Medical | DX: S00.93XA Contusion of unspecified part of head, initial encounter (principal); S16.1XXA Strain of muscle, fascia and tendon at neck level, initial encounter; S46.819A Strain of other muscles, fascia and tendons at shoulder and upper arm level, unspecified arm, initial encounter; S39.012A Strain of muscle, fascia and tendon of lower back, initial encounter; W00.0XXA Fall on same level due to ice and snow, initial encounter; Z02.79 Encounter for issue of other medical certificate | CPT/HCPCS: 99213 ==

== ENCOUNTER 2024-09-25 15:04 | Outpatient (REF) | payer OTHER, SELFPAY | END 2024-09-25 15:05 | disposition home or self-care (01) | LOC: HO.MAMMO 15:04 | PROVIDERS: PCP Internal Medicine; Visit Provider Internal Medicine | DX: Z12.31 Encounter for screening mammogram for malignant neoplasm of breast (principal) | CPT/HCPCS: 77063; 77067 ==

== ENCOUNTER → 2024-09-25 15:15 | Outpatient (BNV) | payer OTHER, SELFPAY | PROVIDERS: PCP Internal Medicine; Visit Provider Internal Medicine | DX: Z12.31 Encounter for screening mammogram for malignant neoplasm of breast (principal) | CPT/HCPCS: 77063; 77067 ==

== ENCOUNTER 2025-05-18 10:29 | Outpatient (AMB) | payer OTHER, SELFPAY ==
--- NOTE | 2025-05-18 10:33 | A.OFFPC_ITS ---
Vital Signs 05/18/25 10:34 Height 5 ft 1 in Weight 189 lb 4 oz BMI 35.8 BP 130/82 Blood Pressure Location Lt brachial Position Sitting Pulse 89 Pulse Source Pulse Oximeter Temp 97.5 F Temp Source Temporal Artery Scan Pulse Oximetry (%) 95 Oxygen Delivery Method Room Air Intake Visit Reasons: Asthma Allergies No Known Allergies (No Known Allergies*) Allergy (Verified 05/18/25 10:37) Tobacco use date assessed: 05/18/25 Dental Screening Dental Screen Date: 05/18/25 Did you have a dental visit in the last 12 months?: Yes Did you have a dental problem in the last 6 months where you did not have access to dental care?: No Was dental information given to patient?: Patient has dentist HPI HPI Comments History of Present Illness Details Patient is a 44-year-old female with history of asthma, obesity s/p bariatric surgery in 2021 who presents today with complaints of worsening asthma symptoms. Reports worsening symptoms of chest tightness, wheezing and shortness of breath for the past 2-3 weeks necessitating increased use of albuterol inhaler and nebulizer - now using it 2 to 3 times a day, along with sporadic use of prednisone 20 mg that she has at home. Reports cough fits, intermittently productive of phlegm. Reports nighttime awakenings with cough > 1 night a week. Denies recent flu, fever or chills. [facility], [facility] Medical History Right knee pain Left knee pain Sexual dysfunction Liver fibrosis Abnormal uterine bleeding (AUB) Spotting Urinary frequency Incisional pain Lumbar pain Periumbilical abdominal pain Vulvovaginal candidiasis Ovarian cyst (~03/2020) Dyspnea Equivocal stress test Depression with anxiety Supraclavicular mass Perineal ulcer Sleep apnea with use of continuous positive airway pressure (CPAP) Prolonged Q-T interval on ECG Chronic pain Migraine GERD (gastroesophageal reflux disease) Anemia Hypertension Hyperparathyroidism Recurrent umbilical hernia Dermatitis Morbid obesity due to excess calories Left hip pain Corey's syndrome Benign tumor Easy bruising Carpal tunnel syndrome Mild asthma Bulging of cervical intervertebral disc RADHA positive Irritable bowel syndrome with both constipation and diarrhea Pre-diabetes Polyarthralgia Pelvic pain ADHD Hypoglycemia Surgical History Status post sleeve gastrectomy Status post surgery Hx of colonoscopy History of esophagogastroduodenoscopy (EGD) Hx of oral surgery History of endometrial ablation H/O umbilical hernia repair History of mandibular surgery History of hysteroscopy History of bilateral tubal ligation H/O section Hx laparoscopic cholecystectomy Hx of tonsillectomy H/O laparoscopy Family History (Reviewed 05/18/25 @ 10:37 by Sarah Sumner [facility]) Mother Diabetes HTN (hypertension) Pulmonary edema Maternal Grandmother Cancer Sister Diabetes Father No problems noted. Social History (Reviewed 05/18/25 @ 10:37 by Sarah Sumner [facility]) Household Members: Spouse Housing: Apartment Are you a primary neurocritical care physician to a significant other at home: No Do you presently have visiting nurse or other home services: No Alcohol intake: never Patient Tobacco Use Status: Former Tobacco user Tobacco use type: Cigarette e-Cigarette/Vaping Use: Never Used Second Hand Smoke Exposure: Yes service: No Current occupational status: employed Current occupational exposures/hazards: No Sexual orientation: Straight/Heterosexual Gender identity: Female Cognitive needs: No Hearing needs: No Vision needs: Yes (glasses) Female Reproductive History Menstrual Age of Menarche: 11 Questionnaire PHQ-9 Over the last 2 weeks, how often have you been bothered by any of the following problems? 1. Little interest or pleasure in doing things: not at all 2. Feeling down, depressed, or hopeless: not at all 3. Trouble falling or staying asleep, or sleeping too much: nearly every day 4. Feeling tired or having little energy: nearly every day 5. Poor appetite or overeating: not at all 6. Feeling bad about yourself - or that you are a failure or have let yourself or your family down: not at all 7. Trouble concentrating on things, such as reading the newspaper or watching television: not at all 8. Moving or speaking so slowly that other people could have noticed. Or the opposite - being so fidgety or restless that you have been moving around a lot more than usual: not at all 9. Thoughts that you would be better off or of hurting yourself in some way: not at all Total score: 6 Depression Screening Interpretation: Positive Depression Screening Follow-up: Existing condition, Follow-up Visit Requested and Declines treatment Depression Screening Done: Yes Source: Developed by Drs. Adrien Rodriguez, Donell Hurleyke and colleagues, with an educational tia from [employer]. Thrive Questionnaire Date Thrive assessed: 07/24/24 I am a: Patient What is your living situation today?: I have a steady place to live Within the past 12 months, did the food you bought not last and you didn't have the money to get more?: Never true Within the past 12 months, did you worry whether your food would run out before you got money to buy more?: Never true Do you have trouble paying for medicines?: No Do you have trouble getting transportation to medical appointments?: No Do you have trouble paying your heating and electricity bill?: No Do you have trouble taking care of your child, family member or friend?: No Do you have trouble with day-to-day activities such as bathing, preparing meals, shopping, managing finances, etc.?: No Are you currently unemployed and looking for a job?: No Are you interested in more education?: No Please select the resources that you would like help with: None Currently or been in a relationship where the following occur: No concerns reported THRIVE Score: 0 AUDIT C Alcohol Use Questionnaire (AUDIT-C) 1. How often do you have a drink containing alcohol?: Never 3. How often do you have six or more drinks on one occasion?: Never Total Score: 0 ISIDRA-7 AMB Questionnaire ISIDRA-7 Date ISIDRA - 7 assessed: 07/26/24 Feeling nervous, anxious, or on edge: 1 = Several days Not being able to stop or control worryin = Not at all Worrying too much about different things: 0 = Not at all Trouble relaxin = Several days Being so restless that it is hard to sit still: 1 = Several days Becoming easily annoyed or irritable: 1 = Several days Feeling afraid as if something awful might happen: 0 = Not at all Total ISIDRA-7 score (0-4 normal; 5-9 mild; 10-14 moderate; 15-21 severe): 4 Source: Developed by Drs. Adrien Rodriguez, Donell Hurley and colleagues, with an educational tia from [employer]. Physical exam (Primary Care) Vital Signs: Last Vital Signs Temp 97.5 F 05/18/25 10:34 Pulse 89 05/18/25 10:34 BP 130/82 05/18/25 10:34 Pulse Ox 95 05/18/25 10:34 Oxygen Delivery Method Room Air 05/18/25 10:34 General: Well-appearing, alert, oriented ?3, in no acute distress. HEENT: Normocephalic, atraumatic, PERRLA, EOMI, no scleral icterus. External ears normal, tympanic membranes intact bilaterally, no erythema or effusion. Nares patent, normal mucosa, no discharge. No oral lesions, or pharyngeal erythema. Neck Supple. Cardiovascular: RRR, S1-S2 appreciated, no murmurs, rubs or gallops. Respiratory: Lungs clear to auscultation bilaterally, no wheezes, rales or rhonchi. BMI result Body Mass Index 35.8 Tobacco/Smoking Status: Tobacco use Status Tobacco use date assessed 05/18/25 05/18/25 10:38 Patient Tobacco Use Status Former Tobacco user 05/18/25 10:38 Tobacco use type Cigarette 05/18/25 10:38 e-Cigarette/Vaping Use Never Used 05/18/25 10:38 PHQ-9: PHQ-9 Score PHQ-9: Total score 6 05/18/25 10:38 Depression Screening Interpretation: Positive Depression Screening Follow-up: Existing condition, Follow-up Visit Requested and Declines treatment Thrive Assessment: Date of Thrive Assessment Date Thrive assessed 07/24/24 05/18/25 10:38 Currently or been in a relationship where the following occur: No concerns reported Coding Level of Care Code Est Pt Level 4 (62938) Diagnoses Moderate persistent asthma, unspecified whether complicated J45.40 Asthma severity: moderate Asthma persistence: persistent Asthma complication type: unspecified Gastroesophageal reflux disease without esophagitis K21.9 Esophagitis presence: without esophagitis Muscle spasm M62.838 Assessment & Plan Assessment & Plan (1) Asthma: Code(s): J45.909 - Unspecified asthma, uncomplicated Category: Medical Qualifiers: Asthma severity: moderate Asthma persistence: persistent Asthma complication type: unspecified Qualified Code(s): J45.40 - Moderate persistent asthma, uncomplicated Plan: Patient with history of asthma presenting with 3 weeks history of shortness of breath, chest tightness, wheezing, cough, nighttime awakenings and need for 2-3 times daily use of albuterol, along with sporadic use of prednisone 20 mg. Symptoms consistent with moderate persistent asthma. Plan - start Symbicort 80-4.5 mcg, 1 puff b.i.d. -a course of prednisone 40 mg daily for 5 days -continue to use albuterol as needed -pulmonology referral provided -follow up in 4 weeks (2) GERD (gastroesophageal reflux disease): Code(s): K21.9 - Gastro-esophageal reflux disease without esophagitis Category: Medical Qualifiers: Esophagitis presence: without esophagitis Qualified Code(s): K21.9 - Gastro-esophageal reflux disease without esophagitis Plan: Patient with history of obesity s/p bariatric surgery, on famotidine 40 mg daily -medication refill sent (3) Muscle spasm: Code(s): M62.838 - Other muscle spasm Plan: Cyclobenzaprine refilled Orders: Referrals Pulmonology Referral J45.909 - Unspecified asthma, uncomplicated Medications: New 2 budesonide-formoterol 80-4.5 mcg/actuation (Symbicort) 1 puff inhalation BID 10.2 grams 2RF asthma prednisone 40 mg (2 x 20 mg) PO DAILY 10 tabs 0RF asthma exacerbation Refilled famotidine (Pepcid) 40 mg PO BEDTIME 30 tabs 6RF K21.9 - Gastro-esophageal reflux disease without esophagitis cyclobenzaprine 10 mg PO BEDTIME PRN 30 tabs 0RF muscle spasm 30 days
[2025-05-18 10:34] VITALS: BP 130/82; PULSE 89; TEMP 36.4; O2SAT 95; BMI 35.8
== END 2025-05-18 11:02 | disposition home or self-care (01) ==
LOC: HO.HMCH 10:30
PROVIDERS: PCP Internal Medicine; Visit Provider Student in an Organized Health Care Education/Training Program
DX: J45.40 Moderate persistent asthma, uncomplicated (principal); K21.9 Gastro-esophageal reflux disease without esophagitis; M62.838 Other muscle spasm